=== PATIENT | male | born 1940 | race Caucasian/White ===

== ENCOUNTER → 2018-02-22 15:12 | Outpatient (REF) | payer MEDICARE, BC, SELFPAY ==
[2018-02-22 21:46] LABS: ALT 23 U/L (12-78); AST 17 U/L (15-37); Anion Gap 9.4 mmol/L (3-11); BUN 21 mg/dL (7-18); CO2 26.6 mmol/L (21.0-32.0); CREATININE 1.22 mg/dL (0.70-1.30); Calcium 8.8 mg/dL (8.5-10.1); Chloride 106 mmol/L (98-107); Cholesterol 176 mg/dL (50-200); Estimated GFR 57.91 (mL/min/1.73m2); Glucose 100 mg/dL (70-100); HDL Cholesterol 34 mg/dL (40-60); LDL CHOLESTEROL 118 mg/dL (<100); Sodium 142 mmol/L (136-145); Triglyceride 155 mg/dL (30-150)
== END ==
LOC: NCHCN 15:12
PROVIDERS: PCP Nurse Practitioner Family; Visit Provider Nurse Practitioner Family
DX: I10 Essential (primary) hypertension (principal); R21 Rash and other nonspecific skin eruption
CPT/HCPCS: 80048; 80061; 83721; 84450; 84460

== ENCOUNTER 2018-04-05 09:47 | Outpatient (REF) | payer MEDICARE, BC, SELFPAY ==
[2018-04-05 13:07] LABS: BUN 23 mg/dL (7-18); CREATININE 1.16 mg/dL (0.70-1.30); Calcium 8.6 mg/dL (8.5-10.1); Chloride 107 mmol/L (98-107); Glucose 98 mg/dL (70-100); Potassium 4.2 mmol/L (3.5-5.1); Sodium 142 mmol/L (136-145)
== END 2018-04-05 10:07 ==
LOC: NCHCN 09:47
PROVIDERS: PCP Nurse Practitioner Family; Visit Provider Nurse Practitioner Family
DX: E78.6 Lipoprotein deficiency (principal); I10 Essential (primary) hypertension; N40.0 Benign prostatic hyperplasia without lower urinary tract symptoms; E66.9 Obesity, unspecified
CPT/HCPCS: 80048

== ENCOUNTER → 2018-08-17 09:36 | Outpatient (BNVA) | payer MEDICARE, BC, SELFPAY | PROVIDERS: PCP Nurse Practitioner Family; Referring Provider Nurse Practitioner Family; Visit Provider Physical Therapy Assistant | DX: Z12.11 Encounter for screening for malignant neoplasm of colon (principal); Z86.010 Personal history of colon polyps; I10 Essential (primary) hypertension ==

== ENCOUNTER 2018-09-07 06:13 | Day surgery (SDC) | payer MEDICARE, BC, SELFPAY ==
[2018-09-07 06:26] VITALS: BP 160/98; PULSE 97; RESP 18; TEMP 36; O2SAT 98
[2018-09-07] MEDS: Lactated Ringers 1,000 ML 80 ML IV (06:52)
--- NOTE | 2018-09-07 07:58 | W.COLOREPORT ---
Date of service: 09/07/18 Time of Service: 07:58 Colonoscopy Report Date of procedure: 09/07/18 Pre-op diagnosis general: screening colonoscopy Procedure: screening colonscopy Surgeon: Kurt Ying III Anesthesia proc note operative: MAC Pathology: none sent Complications: None Disposition: PACU Prep: GoLYTELY Procedure Description: After informed consent was obtained the patient was taken to the procedure room and placed in a left decubitous position. Monitors were applied and a time out was done. The patients name, date of , procedure, allergies to medications and metal in their body was reviewed. The patient was then sedated. Once sedated and comfortable a rectal exam was done. External exam was normal. Internal exam revealed a normal sphincter tone and no palpable masses. The prostate large, smooth. The scope was then introduced and retrofelexed. No internal hemorrhoids were identified. The scope was then advanced to the cecum without difficulty. The TI and appendiceal orifice were identified. The prep was adequate. The scope was then slowly retracted over 6 minutes back into the rectum. No Polyps were removed. The scope was removed and the patient was woken up and taken back to Same day surgery in stable condition. The patient tolerated the procedure well and there were no immediate complications. Follow up: The patient should follow up in 10 years unless they develop changes in bowel habits or other new gastrointestinal complaints.
--- NOTE | 2018-09-07 08:03 | W.PM.DSUDISC ---
Discharge Plan Disposition Patient Disposition: HOME Condition: Stable Discharge Details Reason For Visit: screening colonoscopy Attending Provider: Kurt Ying III Primary Care Provider: Ayana Covarrubias Home Meds and New Rx's Prescriptions: Continued lisinopril 20 mg tablet 40 mg PO DAILY RF: 0 bisacodyl [Dulcolax (bisacodyl)] 5 mg tablet,delayed release (DR/EC) 5 mg PO ONCE Qty: 4 RF: 0 polyethylene glycol 3350 17 gram/dose powder 255 g PO ONCE Qty: 255 RF: 0 CENTRUM SILVER TABLET 1 EACH tablet 1 ea PO DAILY RF: 0 aspirin [Aspir-Low] 81 MG tablet,delayed release (DR/EC) 81 mg PO DAILY RF: 0 Discharge Instructions Activity:: Activity as Tolerated Diet:: As Tolerated Discharge Orders Discharge Orders: Discharge Order (Routine); Ordered 09/07/18 Ordered By: Kurt Ying III DS: Diagnosis Discharge Diagnosis (1) Encounter for screening colonoscopy: Status: Acute
[2018-09-07 08:52] VITALS: BP 131/84; PULSE 65; RESP 18; TEMP 36.5; O2SAT 94
== END 2018-09-07 09:00 | disposition home or self-care (01) ==
PROVIDERS: PCP Nurse Practitioner Family; Visit Provider Surgery
PROC: 0DJD8ZZ Inspection of Lower Intestinal Tract, Via Natural or Artificial Opening Endoscopic (ICD-10-PCS; CPT 45378; principal; 2018-09-07 07:30)
DX: Z12.11 Encounter for screening for malignant neoplasm of colon (principal); Z86.010 Personal history of colon polyps; I10 Essential (primary) hypertension
CPT/HCPCS: G0105

== ENCOUNTER 2018-11-22 11:20 | Outpatient (REF) | payer MEDICARE, BC, SELFPAY ==
[2018-11-22 13:28] LABS: ALT 21 U/L (12-78); AST 15 U/L (15-37); Albumin 3.7 g/dL (3.4-5.0); Alkaline Phosphatase 86 U/L (46-116); Anion Gap 5.3 mmol/L (3-11); BUN 20 mg/dL (7-18); Bilirubin, Total 0.5 mg/dL (0.2-1.0); CO2 30.7 mmol/L (21.0-32.0); CREATININE 1.23 mg/dL (0.70-1.30); Calcium 9.5 mg/dL (8.5-10.1); Chloride 106 mmol/L (98-107); Cholesterol 114 mg/dL (50-200); Estimated GFR 57.21 (mL/min/1.73m2); Glucose 87 mg/dL (70-100); HDL Cholesterol 37 mg/dL (40-60); LDL CHOLESTEROL 67 mg/dL (<100); Potassium 4.8 mmol/L (3.5-5.1); Sodium 142 mmol/L (136-145); Total Protein 7.5 g/dL (6.4-8.2); Triglyceride 79 mg/dL (30-150)
== END 2018-11-22 11:40 ==
LOC: NCHCN 11:20
PROVIDERS: PCP Nurse Practitioner Family; Visit Provider Nurse Practitioner Family
DX: E78.6 Lipoprotein deficiency (principal); I10 Essential (primary) hypertension
CPT/HCPCS: 80053; 80061; 83721

== ENCOUNTER 2019-06-25 13:12 | Outpatient (CLI) | payer MEDICARE, BC, SELFPAY ==
--- NOTE | 2019-06-25 13:26 | DI.RAD_ITS ---
EXAM: XR KNEE RT 4V AP,LAT,DREW,PAT INDICATION: KNEE PAIN. COMPARISON: No exams were available for comparison TECHNIQUE: 2D digital imaging was performed. FINDINGS: There is marked narrowing in the medial femorotibial joint space. Flattening of the articular surfac es and subchondral cysts is present. Periarticular spurring is also noted. In the patellofemoral joint, there is periarticular spurring present. No acute fracture or dislocation is present. An enthesophyte is seen at the superior patella. The soft tissues are unremarkable. IMPRESSION: Moderate degenerative changes of the right knee.
== END 2019-06-25 13:32 ==
PROVIDERS: PCP Nurse Practitioner Family; Referring Provider Nurse Practitioner Family; Visit Provider Student in an Organized Health Care Education/Training Program
DX: M25.561 Pain in right knee (principal); M17.11 Unilateral primary osteoarthritis, right knee; E66.9 Obesity, unspecified; I10 Essential (primary) hypertension
CPT/HCPCS: 99204; 99215; 73564

== ENCOUNTER → 2019-07-29 10:04 | Outpatient (BNVA) | payer MEDICARE, BC, SELFPAY | PROVIDERS: PCP Nurse Practitioner Family; Referring Provider Nurse Practitioner Family; Visit Provider Student in an Organized Health Care Education/Training Program | DX: M17.11 Unilateral primary osteoarthritis, right knee (principal); I10 Essential (primary) hypertension | CPT/HCPCS: 20610; 99213; J1040 ==

== ENCOUNTER → 2019-09-09 10:54 | Outpatient (BNVA) | payer MEDICARE, BC, SELFPAY | PROVIDERS: PCP Nurse Practitioner Family; Referring Provider Nurse Practitioner Family; Visit Provider Student in an Organized Health Care Education/Training Program | DX: M17.11 Unilateral primary osteoarthritis, right knee (principal) | CPT/HCPCS: 99212 ==

== ENCOUNTER → 2020-09-16 12:57 | Outpatient (BNVA) | payer MEDICARE, BC, SELFPAY | PROVIDERS: PCP Nurse Practitioner Family; Referring Provider Nurse Practitioner Family; Visit Provider Physician Assistant Surgical | DX: M17.11 Unilateral primary osteoarthritis, right knee (principal) | CPT/HCPCS: 20610; J1040 ==

== ENCOUNTER → 2020-11-12 09:41 | Outpatient (BNVA) | payer MEDICARE, BC, SELFPAY | PROVIDERS: PCP Nurse Practitioner Family; Referring Provider Nurse Practitioner Family; Visit Provider Student in an Organized Health Care Education/Training Program | DX: M17.11 Unilateral primary osteoarthritis, right knee (principal) | CPT/HCPCS: 99213 ==

== ENCOUNTER → 2020-12-17 08:20 | Outpatient (BNVA) | payer MEDICARE, BC, SELFPAY | PROVIDERS: PCP Nurse Practitioner Family; Referring Provider Nurse Practitioner Family; Visit Provider Student in an Organized Health Care Education/Training Program | DX: M17.11 Unilateral primary osteoarthritis, right knee (principal) | CPT/HCPCS: 20610; J1040 ==

== ENCOUNTER 2021-03-02 15:33 | Outpatient (REF) | payer MEDICARE, BC, SELFPAY ==
[2021-03-02 20:57] LABS: ALT 16 U/L (16-63); AST 16 U/L (15-37); Albumin 3.6 g/dL (3.4-5.0); Alkaline Phosphatase 98 U/L (46-116); Anion Gap 10.5 mmol/L (3-11); BUN 31 mg/dL (7-18); Bilirubin, Total 0.3 mg/dL (0.2-1.0); CO2 25.5 mmol/L (21.0-32.0); CREATININE 1.5 mg/dL (0.70-1.30); Calcium 9.3 mg/dL (8.5-10.1); Calculated LDL 96 mg/dL (<100); Chloride 106 mmol/L (98-107); Cholesterol 153 mg/dL (<200); Estimated GFR 45.26 (mL/min/1.73m2); Glucose 111 mg/dL (74-106); HDL Cholesterol 29 mg/dL (40-60); Potassium 4.8 mmol/L (3.5-5.1); Sodium 142 mmol/L (136-145); TSH (W/Ref FT4) 2.47 uIU/mL (0.36-3.74); Total Protein 7.8 g/dL (6.4-8.2); Triglyceride 143 mg/dL (<150)
== END 2021-03-02 15:34 | disposition home or self-care (01) ==
LOC: NCHCN 15:33
PROVIDERS: PCP Nurse Practitioner Family; Visit Provider Nurse Practitioner Family
DX: E78.6 Lipoprotein deficiency (principal); I10 Essential (primary) hypertension; R73.09 Other abnormal glucose; E66.9 Obesity, unspecified; I48.91 Unspecified atrial fibrillation
CPT/HCPCS: 80053; 80061; 83036; 84443

== ENCOUNTER 2021-03-15 12:03 | Outpatient (CLI) | payer MEDICARE, BC, SELFPAY ==
--- NOTE | 2021-03-15 10:45 | DI.RAD_ITS ---
Exam(s) XR STANDING ALIGNMENT EXAM: XR STANDING ALIGNMENT CLINICAL HISTORY: preop. TECHNIQUE: 2D digital imaging was performed. 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 Renh-ag-sgkz apposition in the medial compartment and degenerative subarticular cysts on both sides this compartment. Also sig nificant degenerative changes in the lateral compartment, slightly less so. In the opposite-left kne e there are only minimal degenerative changes. Hips appear unremarkable. Ankles appear unremarkable. IMPRESSION: Advanced degenerative changes in the right knee. DATA REPOSITORY: RADIATION DOSE DELIVERED:
--- NOTE | 2021-03-15 10:45 | DI.RAD_ITS ---
Exam(s) XR KNEE RT 1V EXAM: XR KNEE RT 1V CLINICAL HISTORY: preop. TECHNIQUE: 2D digital imaging was performed. COMPARISON: CR XR KNEE RT 4V AP,LAT,DREW,PAT from 06/25/2019 FINDINGS: Lateral views, compared to 06/25/2019 No fractures. Significant degenerative changes. There is also a joint effusion in the suprapatellar bursa. IMPRESSION: DATA REPOSITORY: RADIATION DOSE DELIVERED:
== END 2021-03-15 12:04 | disposition home or self-care (01) ==
LOC: DIORS 12:03
PROVIDERS: PCP Nurse Practitioner Family; Referring Provider Nurse Practitioner Family; Visit Provider Student in an Organized Health Care Education/Training Program
DX: M17.11 Unilateral primary osteoarthritis, right knee (principal); I12.9 Hypertensive chronic kidney disease with stage 1 through stage 4 chronic kidney disease, or unspecified chronic kidney disease; N18.9 Chronic kidney disease, unspecified
CPT/HCPCS: 99215; 73560; 77073

== ENCOUNTER 2021-03-16 12:26 | Outpatient (CLI) | payer MEDICARE, BC, SELFPAY ==
--- NOTE | 2021-03-16 13:00 | RT.EKG_ITS ---
APPROVED REPORT Exam: Resting ECG Reason for Exam: afib Patient Location: O HR:116 bpm ECG Measurements Heart Rate [address] [id number] P [id number] QRSd 98 QRS -51 QT 374 T 43 QTc 520 Conclusion Atrial flutter with predominant 2:1 AV block...A-rate 254, multiple Ps Probable inferior infarct, recent...Q>25mS, ST>0.07mV, T neg, II-aVF Consider anterior infarct...Q >30mS in V2-V5 Prolonged QT interval...QTc >500mS
== END 2021-03-16 12:27 | disposition home or self-care (01) ==
PROVIDERS: PCP Nurse Practitioner Family; Referring Provider Nurse Practitioner Family; Visit Provider Internal Medicine Cardiovascular Disease
DX: I48.20 Chronic atrial fibrillation, unspecified (principal); I10 Essential (primary) hypertension; Z01.810 Encounter for preprocedural cardiovascular examination
CPT/HCPCS: 93010

== ENCOUNTER → 2021-03-16 12:26 | Outpatient (BNVA) | payer MEDICARE, BC, SELFPAY | PROVIDERS: PCP Nurse Practitioner Family; Referring Provider Nurse Practitioner Family; Visit Provider Internal Medicine Cardiovascular Disease | DX: I48.20 Chronic atrial fibrillation, unspecified (principal); Z01.810 Encounter for preprocedural cardiovascular examination; I10 Essential (primary) hypertension | CPT/HCPCS: 93005; 99203; 99214 ==

== ENCOUNTER 2021-03-22 00:27 | Outpatient (CLI) | payer MEDICARE, BC, SELFPAY ==
--- NOTE | 2021-03-22 07:15 | DI.NM_ITS ---
APPROVED REPORT Exam: Pharmacologic Patient Location: Out-Patient Room/Bed: Stress Nurse: Ely So RN Ordering Provider:LAISHA ZAMORA, Contact Number: [phone] BMI: 35.80 Baseline Rhythm: Sinus Tachycardia Comment: Frequent multifocal PVCs Indications: Preoperative cardiovascular evaluation, hypertension, atrial fibrillation Medical History Medical History: Afib, hypertension, hyperlipidemia, prediabetes, diverticulitis, peripheral venous d isease, R knee injury Cardiac Medications: Metoprolol succinate, eliquis, lisinopril, atorvastatin Allergies: NKA Cardiac Risk Factors: Hypertension, hyperlipidemia, prediabetes, obesity, PVD Previous Cardiac Procedures: None Pretest Chest Pain Characteristics: None Exercise History: Sedentary Physical Disabilities: R knee injury Lung Sounds: Clear to auscultation Heart Sounds: Irregular Stress Test Details Test: Pharmacologic stress testing performed using 0.4 mg of regadenoson per 5 mL given IV over 10 s econds. Reason for pharmacologic stress test: physical limitation. Nuclear Acquisition: Rest Tc-99m/Stress Tc-99m 1 day Rest Isotope: Tc-99m Sestamibi. Dose: 14.7 Date: 03/22/2021 Injection Time: 0915 Stress Isotope: Tc-99m Sestamibi. Dose: 47.0 Date: 03/22/2021 Injection Time: 1033 HR Resting HR Supine: 127 bpm Max Heart Rate (APMHR): 142.368862 bpm Target HR (85% APMHR): 120.094717 bpm Max HR Achieved: 129 bpm % of APMHR: 90.85 Recovery HR: 125 bpm Comment: Metoprolol succinate not held BP Resting BP Supine: 144/90 mmHg Max BP: 144/90 mmHg Recovery BP: 132/88 mmHg ECG Resting ECG: Sinus Tachycardia Ectopy: Frequent multifocal PVCs Stress ECG: Sinus Tachycardia ST Change: No significant ST segment changes noted Arrhythmia: Frequent multifocal PVCs, trigeminy Recovery ECG: Sinus Tachycardia Recovery ST Change: No significant ST segment changes noted Recovery Arrhythmia: Frequent multifocal PVCs, trigeminy, Clinical Stress Symptoms: General Fatigue Rate Pressure Product: [id number] Stress ECG Conclusion 1. There is a pharmacological stress test. 2. The patient no symptoms suggestive of ischemia. 3. The ECG portion of the exam is nondiagnostic. Stress Test Summary STAGE HR BP Symptoms NOTES Supine 127 144/90 SpO2 93% 1 min post Lexiscan injection 122 140/96 SpO2 93% 3 min post Lexiscan injection 125 138/86 SpO2 96% Pt reports feeling tired, small discomfort in shoul ders 6 min post Lexiscan injection 125 132/88 SpO2 96% Symptoms resolved MPI Conclusion The ejection fraction was 38% with stress. There were no regional wall motion abnormalities There was no evidence of ischemia on the imaging portion of the exam. This represents a normal SPECT stress test. Radiologist Interpretation Radiologist Interpretation by: Rob Bustos MD Interpretation Date/Time: 03/23/2021 08:28:03
[2021-03-22] MEDS: Regadenoson 0.4 MG/5 ML SYR IVP (10:53)
== END 2021-03-22 00:47 ==
PROVIDERS: PCP Nurse Practitioner Family; Visit Provider Internal Medicine Cardiovascular Disease
DX: I10 Essential (primary) hypertension (principal); I48.20 Chronic atrial fibrillation, unspecified; Z01.810 Encounter for preprocedural cardiovascular examination; I49.3 Ventricular premature depolarization; E78.5 Hyperlipidemia, unspecified; R73.03 Prediabetes; E66.9 Obesity, unspecified
CPT/HCPCS: 78452; 93016; 93018; 93017; J2785

== ENCOUNTER 2021-03-23 01:34 | Outpatient (CLI) | payer MEDICARE, BC, SELFPAY ==
--- NOTE | 2021-03-23 | DI.US_ITS ---
APPROVED REPORT EXAM: Comprehensive 2D, Doppler, and color-flow Echocardiogram Patient Location: Out-Patient Fiber Machine Tender: Jayde Carter RDCS (AE) Indications: Atrial Fibrillation Other Information Study Quality: Technically Difficult. Technically limited study due to body habitus, arrhythmia. Conclusion Left Ventricle : The left ventricle is normal size. Left ventricular systolic function is mildly decr eased. Visual estimation 45 to 50%. Cannot assess regional wall motion abnormalities. There is no gina tricular septal defect visualized. Right Ventricle : Right ventricle is not well visualized. Right ventricular systolic function could n ot be assessed. The RVSP is 30.0mmHg. Atria : The left atrium size is normal. The right atrium size is normal. Aortic Valve : Aortic valve is calcified. Number of aortic valve leaflets could not be assessed. Trac e aortic regurgitation. No hemodynamically significant valvular aortic stenosis. Great Vessels : The aortic root is normal in size. Ascending aorta is not well visualized. Aortic arc h is normal in caliber. The IVC collapses <50% with inspiration. Please see remainder of study for further details. Wall motion Left Ventricle The left ventricle is normal size. Left ventricular systolic function is mildly decreased. Visual est imation 45 to 50%. There is normal left ventricular wall thickness. Cannot assess regional wall motio n abnormalities. There is no ventricular septal defect visualized. Right Ventricle Right ventricle is not well visualized. Right ventricular systolic function could not be assessed. Th e RVSP is 30.0mmHg. Atria The left atrium size is normal. The right atrium size is normal. The interatrial septum is intact wit h no evidence for an atrial septal defect. Aortic Valve Aortic valve is calcified. Number of aortic valve leaflets could not be assessed. No hemodynamically significant valvular aortic stenosis. Trace aortic regurgitation. Mitral Valve The mitral valve is normal in structure. No evidence of mitral valve stenosis. Trace mitral regurgita tion. Tricuspid Valve The tricuspid valve is normal in structure. There is no tricuspid valve stenosis. Trace tricuspid reg urgitation. Pulmonic Valve The pulmonary valve is normal in structure. There is no pulmonic valvular stenosis. Trace pulmonic re gurgitation. Great Vessels The aortic root is normal in size. Ascending aorta is not well visualized. Aortic arch is normal in c aliber. The IVC collapses <50% with inspiration. Pericardium There is no pericardial effusion. 2D Dimensions IVSD d PLAX 1.04 cm M: 0.6-1.2 LV Vol A2C d MOD 116.3 mL LVPW d PLAX 1.01 cm M: 0.6 - 1.2 LV Vol A4C d MOD 112.4 mL LVID d PLAX 4.00 cm M: 4.2 - 5.8 LA vol/ BSA A2C s A-L 33.3 mL/m2 LVDs 3.20 cm M: 2.5 - 4.0 LA vol/ BSA A4C s A-L 32.7 mL/m2 Ao Root d 3.52 cm M: 3.1 - 3.7 LA Vol/ BSA Biplane s A-L 35.3 mL/m2 RA Area A4C 20.58 cm2 LA Area A4C s MOD 25.40 cm2 RA Vol/ BSA A4C s A-L 26.1 mL/m2 LA Area A2C s MOD 24.02 cm2 LV EF Teichholz 40.1 % LV EF A4C MOD 41.1 % LVEF (Zaidi's) 41.06 % M: 52 - 72 LV EF A2C MOD 39.9 % LV Volume 81.74 mL M: 62 - 150 LV EF Biplane MOD 41.1 % LV Volume Index 34.05 mL/m2 M: 34 - 74 SV 47.39 mL LV Vol Biplane MOD 115.4 mL SV Index 19.74 mL/m2 FS 19.20 % M-Mode TAPSE 1.76 cm (M/F) >1.7 LV Diastology E/A Ratio 1.5 MV E Vmax 0.91 (0.4-1.3 m/s) MV A Vmax 0.60 (0.4-1.3 m/s) MV E/A Ratio 1.52 Aortic Valve LVOT Area 5.03 cm2 AoV Area Vmax 2.17 cm2 LVOT Vmax 0.89 m/s AoV Area/ BSA (Vmax) 0.90 cm2/m2 LVOT Mean Bobby. 0.58 m/s KRISTAN Mean Bobby. 1.91 cm2 LVOT Peak Grad 3.1 mmHg KRISTAN Mean Bobby. Index 0.80 cm2/m2 LVOT Mean Grad 1.6 mmHg LVOT VTI 0.136 m LVOT Diam s 2.50 cm AoV Vmax 2.05 m/s Velocity Ratio 0.43 AoV Mean Bobby. 1.53 m/s AoV Peak Grad 16.8 mmHg LVOT SV 68.25 mL AoV Mean Grad 10.2 mmHg AoV VTI 0.322 m AoV Area VTI 2.12 cm2 AoV Area/ BSA (VTI) 0.88 cm/m2 Mitral Valve MV DT 128 (160-240 msec) MV PHT 37 msec MV Area PHT 5.91 cm2 MV VTI 0.296 m MV Area VTI 2.31 (4.0-6.0 cm2) Pulmonary Valve PV Vmax 1.53 (0.5-1.5 m/s) RVOT Peak Gr. 4.89 mmHg PV Peak Grad 9.3 mmHg RVOT Mean Gr. 2.30 mmHg PV Mean Grad 4.9 mmHg RVOT VTI 0.148 m PV VTI 0.175 m RVOT Vmax 1.11 m/s Tricuspid Valve TR Peak Grad 22.0 mmHg TR Vmax 2.35 m/s RA Pressure 8.00 mmHg RVSP (TR) 30.0 mmHg
== END 2021-03-23 01:54 ==
PROVIDERS: PCP Nurse Practitioner Family; Visit Provider Nurse Practitioner Family
DX: I48.91 Unspecified atrial fibrillation (principal); R93.9 Diagnostic imaging inconclusive due to excess body fat of patient; I49.8 Other specified cardiac arrhythmias
CPT/HCPCS: 93306

== ENCOUNTER 2021-03-26 03:01 | Outpatient (CLI) | payer MEDICARE, BC, SELFPAY ==
[2021-03-26 11:16] LABS: Source Nasal/Nares
[2021-03-26 13:49] LABS: COVID-19 PCR Negative (Negative)
== END 2021-03-26 03:02 | disposition home or self-care (01) ==
LOC: LBO 03:02
PROVIDERS: PCP Nurse Practitioner Family; Visit Provider Student in an Organized Health Care Education/Training Program
DX: Z20.822 Contact with and (suspected) exposure to COVID-19 (principal); Z01.818 Encounter for other preprocedural examination
CPT/HCPCS: 87635

== ENCOUNTER 2021-03-26 03:02 | Outpatient (CLI) | payer MEDICARE, BC, SELFPAY ==
--- NOTE | 2021-03-25 11:39 | ANES.CON_ITS ---
General Date of Service Date of Service: 03/25/21 Reason for Consult Requesting Provider: Weston Ojeda How Consult Conducted:: Chart Review Reason for Consult:: Afib, CV history Consult Recommendation after Review:: Discussed patient's preoperative CV note and followup ECHO and MPS results. We agree that it is reasonable for him to proceed for his scheduled TKA. Meds Allergies and Home Medications Allergies Allergy/AdvReac Type Severity Reaction Status Date / Time No Known Allergies Allergy Verified 03/16/21 12:52 Home Medication Medication Instructions Recorded Centrum Silver Tablet 1 ea PO DAILY 11/12/12 lisinopril 20 mg tablet 40 mg PO DAILY tab 08/17/18 naproxen sodium 220 mg capsule 220 mg PO BID PRN 07/29/19 apixaban 5 mg tablet 5 mg PO BID 03/15/21 atorvastatin 20 mg tablet 20 mg PO DAILY 03/15/21 metoprolol succinate 100 mg 100 mg PO DAILY #90 tab 03/16/21 tablet,extended release 24 hr PFSH Active Problems Active Problems: Problem Status Onset Code Preoperative cardiovascular examination Z01.810 Hypertension I10 BPH (benign prostatic hyperplasia) N40.0 Atrial fibrillation, chronic I48.20 Renal insufficiency N28.9 Dyslipidemia E78.5 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 mg Obesity Peripheral venous insufficiency Preoperative cardiovascular examination Surgical History Surgical History Colonoscopy - IV Sedation (~2006) MINDA Tobacco Smoking/Tobacco Use Status: Never Substance Use Substance use: Never Vital Signs & Lab Results Point of Care Results Nursing Point of Care Results: No Data to Display Lab Results Blood Type / Crossmatch: No Data to Display Complete Blood Count: No Data to Display Complete Metabolic Panel: Sodium Level 142 mmol/L (136-145) 03/02/21 15:10 03/02/21 Potassium Level 4.8 mmol/L (3.5-5.1) 03/02/21 15:10 03/02/21 Chloride Level 106 mmol/L (98-107) 03/02/21 15:10 03/02/21 Carbon Dioxide Level 25.5 mmol/L (21.0-32.0) 03/02/21 15:10 03/02/21 Blood Urea Nitrogen 31 mg/dL (7-18) H 03/02/21 15:10 03/02/21 Creatinine 1.5 mg/dL (0.70-1.30) H 03/02/21 15:10 03/02/21 Estimated GFR/1.73 m2 45.26 (mL/min/1.73m2) 03/02/21 15:10 03/02/21 Calcium Level 9.3 mg/dL (8.5-10.1) 03/02/21 15:10 03/02/21 Albumin 3.6 g/dL (3.4-5.0) 03/02/21 15:10 03/02/21 Glucose Level 111 mg/dL (74-106) H 03/02/21 15:10 03/02/21 Hemoglobin A1c 6.0 % (<5.7) H 03/02/21 15:10 03/02/21 Liver Function Panel: Alanine Aminotransferase (ALT/SGPT) 16 U/L (16-63) 03/02/21 15:10 03/02/21 Aspartate Amino Transf (AST/SGOT) 16 U/L (15-37) 03/02/21 15:10 03/02/21 Coagulation Panel: No Data to Display Cardiac Panel: No Data to Display Arterial Blood Gas: No Data to Display Venous Blood Gas: No Data to Display Pancreas Panel: No Data to Display Thyroid Panel: Thyroid Stimulating Hormone (TSH) 2.47 uIU/mL (0.36-3.74) 03/02/21 15:10 03/02/21 Infectious Disease: No Data to Display Blood Cultures: No Data to Display Toxicology Panel: No Data to Display Imaging and Studies Imaging and Studies EKG Summary: Atrial flutter with predominant 2:1 AV block...A-rate 254, multiple Ps Probable inferior infarct, recent...Q>25mS, ST>0.07mV, T neg, II-aVF Consider anterior infarct...Q >30mS in V2-V5 Prolonged QT interval...QTc >500mS Stress Test Summary: MPI Conclusion The ejection fraction was 38% with stress. There were no regional wall motion abnormalities There was no evidence of ischemia on the imaging portion of the exam. This represents a normal SPECT stress test. Echocardiogram Summary: Conclusion Left Ventricle : The left ventricle is normal size. Left ventricular systolic function is mildly decreased. Visual estimation 45 to 50%. Cannot assess regional wall motion abnormalities. There is no ventricular septal defect visualized. Right Ventricle : Right ventricle is not well visualized. Right ventricular systolic function could not be assessed. The RVSP is 30.0mmHg. Atria : The left atrium size is normal. The right atrium size is normal. Aortic Valve : Aortic valve is calcified. Number of aortic valve leaflets could not be assessed. Trace aortic regurgitation. No hemodynamically significant valvular aortic stenosis. Great Vessels : The aortic root is normal in size. Ascending aorta is not well visualized. Aortic arch is normal in caliber. The IVC collapses <50% with inspiration. Please see remainder of study for further details.
[2021-03-26 10:39] LABS: HCT 42.7 % (40.0-50.0); HGB 13.4 g/dL (13.5-17.5); MCH 30.4 pg (27.0-33.0); MCHC 31.4 % (32.0-36.0); MCV 96.8 fL (80-95); MPV 9.2 fL (8.0-11.0); Platelet Count 392 10^3/uL (130-400); RBC 4.41 10^6/uL (4.36-5.78); RDW-SD 49.8 fL; WBC 8.45 10^3/uL (4.4-10.8)
[2021-03-26 11:52] LABS: Anion Gap 8.9 mmol/L (3-11); BUN 35 mg/dL (7-18); CO2 29.1 mmol/L (21.0-32.0); CREATININE 1.5 mg/dL (0.70-1.30); Calcium 9.7 mg/dL (8.5-10.1); Chloride 105 mmol/L (98-107); Estimated GFR 45.26 (mL/min/1.73m2); Glucose 103 mg/dL (74-106); Sodium 143 mmol/L (136-145)
== END 2021-03-26 03:03 | disposition home or self-care (01) ==
LOC: LBO 03:03
PROVIDERS: PCP Nurse Practitioner Family; Visit Provider Student in an Organized Health Care Education/Training Program
DX: M25.561 Pain in right knee (principal); M17.11 Unilateral primary osteoarthritis, right knee; Z01.818 Encounter for other preprocedural examination; Z01.812 Encounter for preprocedural laboratory examination
CPT/HCPCS: 36415; 80048; 85027; 87635

== ENCOUNTER 2021-03-30 08:28 | Day surgery (SDC) | payer MEDICARE, BC, SELFPAY ==
[2021-03-30] VITALS (7 sets, daily range): BP systolic 128–159; BP diastolic 80–100; PULSE 81–131; RESP 14–20; TEMP 36.2–36.9; O2SAT 94–96; BMI 38.3
--- NOTE | 2021-03-30 09:11 | W.ANESPRE ---
General Info Date of Service Date Performed: 03/30/21 Height: 5 ft 11 in Weight: 124.738 kg Body Mass Index (BMI): 38.3 Surgical Procedure: Operation Date: 03/30/21 10:25 Proposed Procedures Side Surgeon p Knee Total Arthroplasty Right Weston Ojeda MD Meds Allergies and Home Medications Allergies Allergy/AdvReac Type Severity Reaction Status Date / Time No Known Allergies Allergy Verified 03/30/21 08:57 Home Medication Medication Instructions Recorded Centrum Silver Tablet 1 ea PO DAILY 11/12/12 lisinopril 20 mg tablet 40 mg PO DAILY tab 08/17/18 naproxen sodium 220 mg capsule 220 mg PO BID PRN 07/29/19 apixaban 5 mg tablet 5 mg PO BID 03/15/21 atorvastatin 20 mg tablet 20 mg PO DAILY 03/15/21 metoprolol succinate 100 mg 100 mg PO DAILY #90 tab 03/16/21 tablet,extended release 24 hr acetaminophen 650 mg PO Q8H PRN 03/30/21 Current Visit Medications: Current Medications Generic Name Dose Route Start Last Admin Trade Name Joy PRN Reason Stop Dose Admin Acetaminophen 1,000 mg 03/30/21 06:00 Acetaminophen 500 Mg Tab PO 03/30/21 16:00 PREOP LARRY Celecoxib 400 mg 03/30/21 06:00 Celecoxib 200 Mg Cap PO 03/30/21 16:00 PREOP LARRY Gabapentin 300 mg 03/30/21 06:00 Gabapentin 300 Mg Cap PO 03/30/21 16:00 PREOP LARRY Tranexamic Acid 1,000 mg/ 60 mls @ 360 mls/hr 03/30/21 06:00 Sodium Chloride IVPB 03/30/21 16:00 PREOP LARRY Tranexamic Acid 1,000 mg/ 60 mls @ 360 mls/hr 03/30/21 06:00 Sodium Chloride IVPB 03/30/21 16:00 DIRECTED LARRY Ringer's Solution 1,000 mls @ 80 mls/hr 03/30/21 06:00 IV 04/25/21 23:59 INFUSION LARRY Cefazolin Sodium 3,000 mg/ 100 mls @ 200 mls/hr 03/30/21 06:00 Sodium Chloride IVPB 03/30/21 23:59 PREOP LARRY IV Miscellaneous Supplies 1 each 03/30/21 06:00 Iv Access IV 04/25/21 23:59 DIRECTED COUNTS INCLUDE 234 BEDS AT THE [facility] Metoprolol Succinate 100 mg 03/30/21 09:07 Metoprolol Cr 100 Mg Tabcr PO 03/30/21 09:08 NOW STA Sodium Chloride 0 ml 03/30/21 06:00 Normal Saline Flush 10 Ml Syr IV 04/25/21 23:59 PRN PRN Sodium Chloride 0 ml 03/30/21 06:00 Normal Saline 10 Ml Vial IJ 04/25/21 23:59 DIRECTED PRN Sterile Water 0 ml 03/30/21 06:00 Water,Injection,Sterile 10 Ml Vial IJ 04/25/21 23:59 DIRECTED PRN PFSH Active Problems Active Problems: Problem Status Onset Code Preoperative cardiovascular examination Z01.810 Hypertension I10 BPH (benign prostatic hyperplasia) N40.0 Atrial fibrillation, chronic I48.20 Renal insufficiency N28.9 Dyslipidemia E78.5 Abdominal obesity and metabolic syndrome E88.81 HTN (hypertension) with goal to be determined I10 Arthritis of knee, right M17.11 Encounter for screening colonoscopy Z12.11 Medical History Medical History Benign prostatic hyperplasia DIVERTICULOSIS Dupuytren's disease Essential hypertension Hypertension Normal colonoscopy (09/07/18) 09/07/18 Dr Kurt Ying, [facility], normal, would be repeat in 10 years but due to age, repeat as needed. mg Obesity Peripheral venous insufficiency Preoperative cardiovascular examination Surgical History Surgical History Colonoscopy - IV Sedation (~2006) MINDA Tobacco Smoking/Tobacco Use Status: Never Alcohol Alcohol Intake: never Substance Use Substance use: Never Substance use type: does not use Vital Signs and Lab Results Lab Results Blood Type / Crossmatch: No Data to Display Complete Blood Count: White Blood Count 8.45 10^3/uL (4.4-10.8) 03/26/21 10:34 03/26/21 Red Blood Count 4.41 10^6/uL (4.36-5.78) 03/26/21 10:34 03/26/21 Hemoglobin 13.4 g/dL (13.5-17.5) L 03/26/21 10:34 03/26/21 Hematocrit 42.7 % (40.0-50.0) 03/26/21 10:34 03/26/21 Platelet Count 392 10^3/uL (130-400) 03/26/21 10:34 03/26/21 Complete Metabolic Panel: Sodium Level 143 mmol/L (136-145) 03/26/21 10:34 03/26/21 Potassium Level 5.0 mmol/L (3.5-5.1) 03/26/21 10:03/26/21 Chloride Level 105 mmol/L (98-107) 03/26/21 10:03/26/21 Carbon Dioxide Level 29.1 mmol/L (21.0-32.0) 03/26/21 10:34 03/26/21 Blood Urea Nitrogen 35 mg/dL (7-18) H 03/26/21 10:03/26/21 Creatinine 1.5 mg/dL (0.70-1.30) H 03/26/21 10:03/26/21 Estimated GFR/1.73 m2 45.26 (mL/min/1.73m2) 03/26/21 10:03/26/21 Calcium Level 9.7 mg/dL (8.5-10.1) 03/26/21 10:34 03/26/21 Albumin 3.6 g/dL (3.4-5.0) 03/02/21 15:10 03/02/21 Glucose Level 103 mg/dL (74-106) 03/26/21 10:34 03/26/21 Hemoglobin A1c 6.0 % (<5.7) H 03/02/21 15:10 03/02/21 Liver Function Panel: Alanine Aminotransferase (ALT/SGPT) 16 U/L (16-63) 03/02/21 15:10 03/02/21 Aspartate Amino Transf (AST/SGOT) 16 U/L (15-37) 03/02/21 15:10 03/02/21 Coagulation Panel: No Data to Display Cardiac Panel: No Data to Display Arterial Blood Gas: No Data to Display Venous Blood Gas: No Data to Display Pancreas Panel: No Data to Display Thyroid Panel: Thyroid Stimulating Hormone (TSH) 2.47 uIU/mL (0.36-3.74) 03/02/21 15:10 03/02/21 Infectious Disease: Coronavirus (COVID-19)(PCR) Negative (Negative) 03/26/21 10:47 03/26/21 Coronavirus 2019 Source Nasal/Nares 03/26/21 10:47 03/26/21 Blood Cultures: No Data to Display Toxicology Panel: No Data to Display Imaging and Studies Imaging and Studies EKG Summary: Atrial flutter with predominant 2:1 AV block...A-rate 254, multiple Ps Probable inferior infarct, recent...Q>25mS, ST>0.07mV, T neg, II-aVF Consider anterior infarct...Q >30mS in V2-V5 Prolonged QT interval...QTc >500mS Stress Test Summary: MPI Conclusion The ejection fraction was 38% with stress. There were no regional wall motion abnormalities There was no evidence of ischemia on the imaging portion of the exam. This represents a normal SPECT stress test. Echocardiogram Summary: Conclusion Left Ventricle : The left ventricle is normal size. Left ventricular systolic function is mildly decreased. Visual estimation 45 to 50%. Cannot assess regional wall motion abnormalities. There is no ventricular septal defect visualized. Right Ventricle : Right ventricle is not well visualized. Right ventricular systolic function could not be assessed. The RVSP is 30.0mmHg. Atria : The left atrium size is normal. The right atrium size is normal. Aortic Valve : Aortic valve is calcified. Number of aortic valve leaflets could not be assessed. Trace aortic regurgitation. No hemodynamically significant valvular aortic stenosis. Great Vessels : The aortic root is normal in size. Ascending aorta is not well visualized. Aortic arch is normal in caliber. The IVC collapses <50% with inspiration. Please see remainder of study for further details. Anesthesia Assessment and Plan Anesthesia History Personal History: No History of Anesthesia Complications Family History: No Family History of Anesthesia Complications Exercise Tolerance Exercise Tolerance: Metabolic Equivalents<4 Pertinent Negatives Pertinent Negatives: No Symptoms of GERD, No Major Pulmonary Symptoms or Complaints and No History of CVA/TIA Cardiac & Pulmonary Exam Cardiac Exam: Normal S1/S2 Heart Sounds (Patient's heart rate is elevated in the 130s. Did not take his 100 mg ER Metoprolol this morning. Ordered to be given in DSU. ) Pulmonary Exam: Clear Bilateral Breath Sounds Airway Exam Known Difficult Airway: No Mallampati Class: 3 Mouth Opening: Normal (> 3cm) Thyromental Distance: Greater than 3 cm Neck Range of Motion: Full ROM Neck Circumference: Normal Teeth Condition: Removable Dentures/Plates Lower ASA Classification ASA Score: ASA 3 Emergency Case?: No NPO Status NPO Status: NPO Clears >2 hours, Solids >8 hours Anesthesia Plan Resuscitation Status: Full Code Anesthesia Technique: Spinal Anesthesia Airway Planned: Natural Airway Monitors Used: Standard Monitors
[2021-03-30] MEDS: Metoprolol CR 100 MG TABCR PO (09:21)
[2021-03-30] MEDS: Celecoxib 200 MG CAP 400 MG PO (09:28)
[2021-03-30] MEDS: Acetaminophen 500 MG TAB 1000 MG PO (09:28)
[2021-03-30] MEDS: Gabapentin 300 MG CAP PO (09:28)
[2021-03-30] MEDS: Lactated Ringers 1,000 ML 80 ML IV (09:45)
--- NOTE | 2021-03-30 10:08 | W.PM.DSUDISC ---
Documented by User: GHISLAINE Celeste 03/30/21 14:16 Discharge Plan Disposition Patient Disposition: HOME Condition: Good Discharge Details Reason For Visit: R TKR Attending Provider: Weston Ojeda Primary Care Provider: Ayana Covarrubias Home Meds and New Rx's Prescriptions: New celecoxib 200 mg capsule 200 mg PO BID Qty: 60 RF: 0 gabapentin 300 mg capsule 300 mg PO QHS Qty: 14 RF: 0 acetaminophen 500 mg capsule 1,000 mg PO Q8H PRN PRNQty: 90 RF: 0 pantoprazole 40 mg tablet,delayed release (DR/EC) 40 mg PO DAILY Qty: 30 RF: 0 oxycodone 5 mg tablet 5 mg PO Q4H MDD 6 tabs PRN (Reason: pain) Qty: 20 RF: 0 cephalexin 500 mg tablet 500 mg PO TID Qty: 21 RF: 0 Continued metoprolol succinate 100 mg tablet extended release 24 hr 100 mg PO DAILY Qty: 90 RF: 3 lisinopril 20 mg tablet 40 mg PO DAILY RF: 0 Eliquis 5 mg tablet 5 mg PO BID RF: 0 atorvastatin 20 mg tablet 20 mg PO DAILY RF: 0 CENTRUM SILVER TABLET 1 EACH tablet 1 ea PO DAILY RF: 0 Discontinued naproxen sodium [Aleve] 220 mg capsule 220 mg PO BID PRNRF: 0 acetaminophen 650 mg Tablet Extended Release 650 mg PO Q8H PRNRF: 0 Discharge Instructions Additional Instructions: Total Knee Discharge Instructions Activity: The most important activity is to walk. You should try to take short walks a few times a day. It is important that when resting you work on keeping the knee straight. Avoid putting a pillow behind the knee as this will encourage flexion. You should prioritize your [employer] bike. Some days you may need to not do as much due to pain and stiffness. Incorporate range of motion exercises as provided by Physical Therapy. - Start outpatient physical therapy within 2 weeks. - You should wear the BARBY hose on both legs for 2 weeks. You may remove these at night. You may also use any compression sock in place of the BARBY hose. Dressing: You may remove the Deon wrap on your leg 1-2 days after your surgery and put on the BARBY stocking given to you from the hospital. Keep the surgical dressing (underneath the DEON wrap) in place for at least one week. After the first week it may be removed and replaced with light gauze and tape or nothing. The wound and dressing may get wet after 3 days but avoid soaking the dressing or otherwise it will need to be changed. Many people prefer covering the dressing with cling wrap (saran wrap) to minimize it from getting soaked. If it gets wet, just pat dry. If it starts to peel off then it will need to be changed. Medications: - You should take Tylenol and anti-inflammatory Celebrex as your primary pain control medications. If the Celebrex is too expensive or not covered, please call the office for another alternative (Advil/Ibuprofen or Naproxen/Aleve) - You have been prescribed a stronger pain medication Oxycodone for breakthrough pain, take as needed as prescribed. - You have also been prescribed a stomach acid reduction agent Pantoprozole to help reduce stomach acid and reflux. - You have been prescribed Gabapentin to take at night for restlessness and nerve pain. - You will be taking your apixaban for DVT prevention which you should start in the morning (03/31/2021). - If you have constipation you should take Colace or Miralax (both [id number]). It takes most people 3-4 days to have a bowel movement. - You were also prescribed cephalexin which you will take three times daily for one week. Follow-up: 2 weeks If you have any acute concerns or questions, please do not hesitate to contact the office at [phone]. You may contact Dr. Ojeda with any questions after hours through the hospital at [phone] or on his cell phone at [phone]. Stand Alone Forms: Anes.Nerve Block Instructions, Sarah Buchanan ([facility]) Referrals: Weston Ojeda MD [ [facility] STAFF PHYSICIAN] - Equipment/Supplies: Walker Activity:: Activity as Tolerated Remove Dressings/Wound Care:: Do Not Remove Shower/Bathe:: 72 hours Diet:: As Tolerated Discharge Orders Discharge Orders: Discharge Order (Routine); Ordered 03/30/21 Ordered By: Weston Ojeda DS: Diagnosis Discharge Diagnosis (1) Arthritis of knee, right: Status: Acute Documented by User: Weston Ojeda MD 03/30/21 14:19 Discharge Plan Disposition Patient Disposition: HOME Condition: Good Discharge Details Reason For Visit: R TKR Attending Provider: Weston Ojeda Primary Care Provider: Ayana Covarrubias Home Meds and New Rx's Prescriptions: New celecoxib 200 mg capsule 200 mg PO BID Qty: 60 RF: 0 gabapentin 300 mg capsule 300 mg PO QHS Qty: 14 RF: 0 acetaminophen 500 mg capsule 1,000 mg PO Q8H PRN PRNQty: 90 RF: 0 pantoprazole 40 mg tablet,delayed release (DR/EC) 40 mg PO DAILY Qty: 30 RF: 0 oxycodone 5 mg tablet 5 mg PO Q4H MDD 6 tabs PRN (Reason: pain) Qty: 20 RF: 0 cephalexin 500 mg tablet 500 mg PO TID Qty: 21 RF: 0 Continued metoprolol succinate 100 mg tablet extended release 24 hr 100 mg PO DAILY Qty: 90 RF: 3 lisinopril 20 mg tablet 40 mg PO DAILY RF: 0 Eliquis 5 mg tablet 5 mg PO BID RF: 0 atorvastatin 20 mg tablet 20 mg PO DAILY RF: 0 CENTRUM SILVER TABLET 1 EACH tablet 1 ea PO DAILY RF: 0 Discontinued naproxen sodium [Aleve] 220 mg capsule 220 mg PO BID PRNRF: 0 acetaminophen 650 mg Tablet Extended Release 650 mg PO Q8H PRNRF: 0 Discharge Instructions Additional Instructions: Total Knee Discharge Instructions Activity: The most important activity is to walk. You should try to take short walks a few times a day. It is important that when resting you work on keeping the knee straight. Avoid putting a pillow behind the knee as this will encourage flexion. You should prioritize your [employer] bike. Some days you may need to not do as much due to pain and stiffness. Incorporate range of motion exercises as provided by Physical Therapy. - Start outpatient physical therapy within 2 weeks. - You should wear the BARBY hose on both legs for 2 weeks. You may remove these at night. You may also use any compression sock in place of the BARBY hose. Dressing: You may remove the Deon wrap on your leg 1-2 days after your surgery and put on the BARBY stocking given to you from the hospital. Keep the surgical dressing (underneath the DEON wrap) in place for at least one week. After the first week it may be removed and replaced with light gauze and tape or nothing. The wound and dressing may get wet after 3 days but avoid soaking the dressing or otherwise it will need to be changed. Many people prefer covering the dressing with cling wrap (saran wrap) to minimize it from getting soaked. If it gets wet, just pat dry. If it starts to peel off then it will need to be changed. Medications: - You should take Tylenol and anti-inflammatory Celebrex as your primary pain control medications. If the Celebrex is too expensive or not covered, please call the office for another alternative (Advil/Ibuprofen or Naproxen/Aleve) - You have been prescribed a stronger pain medication Oxycodone for breakthrough pain, take as needed as prescribed. - You have also been prescribed a stomach acid reduction agent Pantoprozole to help reduce stomach acid and reflux. - You have been prescribed Gabapentin to take at night for restlessness and nerve pain. - You will be taking your apixaban for DVT prevention which you should start in the morning (03/31/2021). - If you have constipation you should take Colace or Miralax (both [id number]). It takes most people 3-4 days to have a bowel movement. - You were also prescribed cephalexin which you will take three times daily for one week. Follow-up: 2 weeks If you have any acute concerns or questions, please do not hesitate to contact the office at [phone]. You may contact Dr. Ojeda with any questions after hours through the hospital at [phone] or on his cell phone at [phone]. Stand Alone Forms: Luke.Nerve Block Instructions, Sarah Buchanan ([facility]) Referrals: Weston Ojeda MD [ [facility] STAFF PHYSICIAN] - Equipment/Supplies: Walker Activity:: Activity as Tolerated Remove Dressings/Wound Care:: Do Not Remove Shower/Bathe:: 72 hours Diet:: As Tolerated Discharge Orders Discharge Orders: Discharge Order (Routine); Ordered 03/30/21 Ordered By: Weston Ojeda
[2021-03-30] MEDS: ceFAZolin 3,000 MG in Normal Saline 100 ML 200 MG IVPB (10:31)
--- NOTE | 2021-03-30 10:54 | W.ANESNERVE ---
Nerve Block Single Injection Procedure Date and Time Date Performed: 03/30/21 Procedure Start: 10:12 Location Where Procedure Performed Procedure Location: PACU Reason Performed: Postoperative Analgesia Requesting Provider: Weston Ojeda Timeout Performed Timeout Performed: Yes Monitoring Used ECG, Blood Pressure and SpO2 Sterility Sterility: Hand Hygiene, Surgical Cap, Surgical Mask, Sterile Gloves and Chlorhexidine Sedation Given During Procedure Sedation Given (Indicate Dose Given): Versed IV Dose:: 1 mg Patient Mental Status Patient Mental Status: Sedate with meaningful communication Nerve Block 1st Nerve Block: Laterality: Right Block Type: Adductor Canal Needle / Catheter Used: 100mm SonoPlex II Local Anesthetic Bolus (Indicate Dose Given): Injected in 3-5ml increments after negative blood aspiration and Bupivacaine 0.25% Dose:: 20 ml Additives (Indicate Dose Given): None Ultrasound: Sterile probe cover and gel used Ultrasound Image Saved?: Yes Nerve Stimulator: Not Used Paresthesia: None Procedure Tolerated: No Complications and Patient tolerated well Procedure Outcome: Successful Performed By: Babatunde Costa
--- NOTE | 2021-03-30 10:58 | SYNOVIUM_PTH ---
PATIENT: Rob Rivera LOC: [facility] U#:[id number] AGE/SX: 80/M ROOM: RE03/30/[address]: Weston Ojeda MD : 1940 BED: DIS: 03/30/2021 SPEC #: [id number] RECD: 03/30/21 14:40 STATUS: CASSIDY REQ #: [id number] BROOKE: 03/30/21 10:[address]: Weston Ojeda DEPT: Surgical Specimen RECD BY: Nisa Bartlett ENTERED: 03/30/21 14:42 SP TYPE: SYNOVIUM OTHR DR: Ayana Covarrubias [facility] Tissues: 1 - SYNOVIUM/IAL Procedures: GROSS AND MICRO LEVEL 4 SPECIAL STAIN 1 Comments: [id number]
[2021-03-30] MEDS: Bupivacaine 0.25% Pres-Free 30 ML VIAL (11:05)
[2021-03-30] MEDS: Ketorolac 30 MG/ML VIAL (11:06)
[2021-03-30] MEDS: Normal Saline 20 ML VIAL (11:06)
--- NOTE | 2021-03-30 13:19 | W.ANESPOSTOP ---
Postoperative Evaluation Date, Time and Location Date Performed: 03/30/21 Time Performed: 13:19 Patient Location: PACU Vital Signs Most Recent Imported Vital Signs: Most Recent Vital Signs Temp Pulse Resp BP Pulse Ox 36.8 C 98 H 15 140/100 H 95 03/30/21 13:01 03/30/21 13:01 03/30/21 13:01 03/30/21 13:01 03/30/21 13:01 Pain Score Most Recent Pain Score: Most Recent Pain Score Pain Level 2 03/30/21 13:01 Assessment Mental Status: Awake (Alert & Oriented to Patient Baseline) Airway and Respiratory Function: Patent airway with normal (patient baseline) respiratory exam Cardiovascular Function: Hemodynamically Stable Hydration Status: Adequately Hydrated Nausea & Vomiting: No Nausea or Vomiting Pain: Pt. Denies Any Pain Peripheral Nerve Block: Regional nerve block not resolved at time of post operative discharge (Block working appropriately. ) Postoperative Comments:: Patient denies questions. Calm and comfortable.
[2021-03-30] MEDS: Lisinopril 20 MG TAB 40 MG PO (14:00)
--- NOTE | 2021-03-30 14:25 | PT.INIE ---
Date of service: 03/30/21 Time of Service: 14:25 PT Notes Visit Reasons: R TKR Physical Therapy Day Surgery Initial Evaluation Date: 03/30/2021 Referring Doctor: Weston Ojeda MD PT Orders: PT CONSULT: Status post Ortho surgery Precautions: WBAT on right LE. Patient Profile/Admitting Diagnosis: Rob is a 80-year-old male with primary unilateral osteoarthritis of the right knee and is status post right total knee arthroplasty on postoperative day 0. PMHX: Medical History (Updated 03/16/21 @ 13:09 by Gracia Maldonado MD) Benign prostatic hyperplasia DIVERTICULOSIS Dupuytren's disease Essential hypertension Hypertension Normal colonoscopy (09/07/18) 09/07/18 Dr Kurt Ying, [facility], normal, would be repeat in 10 years but due to age, repeat as needed. mg Obesity Peripheral venous insufficiency Preoperative cardiovascular examination Surgical History Colonoscopy - IV Sedation (~2006) MINDA Social History/Home Situation: Lives with in a private home with 4 steps to enter with 1 rail. Equipment Owned/DME: Standard walker Subjective: Agreeable to PT consult. Denies headache, chest pain, and dizziness throughout session. Agreeable to utilizing a front wheeled walker instead after recommendations about instability and inadequate with were given to patient. Objective: General Observation: Supine in DSU bed. SEBASTIAN wraps on right LE. Cryocuff on right LE. Mental Status: Alert and oriented x4 Pain: 2/10 ROM: Right Lower Extremity: Hip flexion WFL. Hip abduction WFL. Knee flexion 10 degrees to 80 degrees. Knee extension -10 degrees ankle dorsiflexion WFL. Ankle plantarflexion WFL. Left Lower Extremity: Hip flexion WFL. Hip abduction WFL. Knee flexion WFL. Ankle dorsiflexion WFL. Ankle plantarflexion WFL. Strength: Right Lower Extremity: Hip flexors 5/5. Hip abductors 4/5. Knee flexors 3-/5. Knee extensors 3-/5. Ankle dorsiflexors 5/5. Ankle plantarflexors 5/5. Left Lower Extremity:Hip flexors 5/5. Hip abductors 5/5. Knee flexors 5/5. Knee extensors 5/5. Ankle dorsiflexors 5/5. Ankle plantarflexors 5/5. Sensation: Intact as to pain pressure in bilateral lower extremities Bed Mobility/Transfers: Supine to sit supervision Sit to stand standby assist Stand to sit standby assist Bed to chair standby assist Gait: Patient tolerated level surface ambulation of 150 feet using front wheeled walker with step through gait pattern requiring contact-guard assist. Balance: Static Sitting: Normal Dynamic Sitting: Normal Static Standing: Fair Dynamic Standing: Fair Special Tests: Mobility Limitations Standardized Measure [facility] 6 clicks Basic Mobility Inpatient Short Form: Raw Score: 22 CMS Score: 21% deficit Informed Consent/Education: Patient instructed in purpose of PT consult. Packet containing TKA exercise protocol has been given to patient. Education and training on initial set of exercises that can be done at home have been completed with patient. Assessment: Patient requires the use of a front wheel walker to maximize independence and reduce fall risk at home. Patient presents with clinical signs and symptoms consistent with current/admitting diagnoses that have resulted to mobility limitations, gait instability, generalized weakness, and impairment of motor control as demonstrated by the following impairment level findings: 1. Decreased strength to right knee major muscle groups 2. Impaired standing balance 3. Limitation of joint range of motion in right knee Impairments are contributing to the following functional limitations: 1. Inability to safely ambulate without assistive device 2. Increase completion time for mobility ADL performance 3. Increased fall risk Patient is assessed as a 89278 complexity based on the following: History: 80-year-old male with impairment level findings, functional limitations, and past medical history as indicated above Examination: Demonstrable impairment in strength, balance, and mobility level with underlying impairments and functional limitations as documented above Presentation: Evolving Decision Makin moderate complexity Goals: N/A. PT evaluation and 1-2 treatment sessions only for functional mobility training using recommended AD and for HEP instruction. Plan of Care/Treatment Plan: N/A. PT evaluation and 1-2 treatment session only for functional mobility training using recommended AD and for HEP instruction. DISCHARGE RECOMMENDATIONS: Home when medically cleared by orthopedic surgeon. Outpatient physical therapy services to facilitate return to premorbid independent community ambulation. TREATMENT CODE/TIME: 39371 x 20 minutes, 66761 x 20 minutes beginning at 14:25 PM. Thank you for the opportunity to participate in the care of this patient. Abbi Ferreira PT, DPT, CLT [facility], [place]
--- NOTE | 2021-03-30 21:08 | ROE_ITS ---
Date of service: 03/30/21 Time of Service: 12:38 Operative Note Operative Note DATE OF PROCEDURE: 03/30/21 PRE-OP DIAGNOSIS: Right Knee Osteoarthritis POST-OP DIAGNOSIS: other Diffuse Synovitis - Right Knee PROCEDURE: Right Total Knee Replacement SURGEON: Weston Ojeda MANAGER AMBULATORY: Lis Avendaño ANESTHESIA TYPE: Spinal Refer to Anesthesia Record ESTIMATED BLOOD LOSS: 250 PATHOLOGY: none sent TOURNIQUET TIME: 26 COMPLICATIONS: None Patient was transported to: PACU Patient's condition: stable Implants: 1. Depuy Attune Cruciate Retaining Femoral Component, Size 9 2. Depuy Attune Rotating Platform Tibial Component, Size 8 3. Depuy Attune 9x7 CR,RP Poly 4. Depuy Attune Patellar Component, Size 41 Indications: I have seen Rob in clinic for symptoms of knee arthritis, confirmed with radiographic findings. He has exhausted nonoperative methods and was having significant limitations in daily function and desired better function and less pain. Recently his motion had been quickly declining and pain increasing. I discussed the technical details of a knee replacement. I explained the risks of the procedure to include, but not limited to, bleeding, infection, pain, stiffness, fracture, damage to nerves and vessels, damage to muscles and tendons, loosening, need for repeat procedure, blood clot and cardiopulmonary demise. Despite these risks, he elected to proceed. Findings: There was a massive effusion about the knee in addition to significant amounts of hypertrophic and somewhat necrotic appearing synovium. An aggressive synovectomy was performed throughout the entirety of the knee and portions of the synovium were sent for microbiologic analysis as well as pathologic analysis. There is significant destruction of the cartilage surfaces of all parts of the knee. Procedure Description: Rob was greeted in the preoperative holding area where the correct side was identified and marked. The consent was reviewed with the patient and signed. The history and physical was updated. All questions were answered. Preoperative mediacations were administered: Acetaminophen 1000mg, Celebrex 400mg, and Gabapentin 300mg. An adductor canal block was then administered by the anesthesia team in the PACU. Rob was taken back to the operating room. A spinal anesthestic was then administered. The patient was placed into the supine position on the operating room table. A nonsterile tourniquet was placed high onto the leg but only used for cementing. Posts were placed for positioning during the proced ure. All bony prominences were well padded. Prophylactic antibiotics in the form of cefazolin were administered. 1g of Tranxemic Acid was given intravenously within 30 minutes of incision. The right leg was then prepped with Chloraprep and draped in a standard fashion with impervious stockinette and extremity drape. A second prep with Chloraprep was performed prior to placing Ioband. A timeout to confirm correct identity, side and site, procedure, allergies, anesthesia, and medical concerns was performed. With the knee in some flexion, a midline incision was made overlying the knee. Full thickness skin flaps were raised once the extensor mechanism was encountered. These were raised medially and laterally. Any bleeding was controlled with electrocautery. Once the extensor mechanism was fully exposed, a medial parapatellar arthrotomy was performed in a flexed position. Immediately, there was evacuation of a large, massive, effusion about the knee. This fluid had a normal appearance to it for inflammatory knee. There is no gross purulence. However, there is significant hypertrophic and even necrotic appearing synovium seen immediately. All bleeding from the arthrotomy and the geniculate arteries was coagulated. A medial subperiosteal peel was performed with electrocautery to the midcoronal plane. The fat pad was removed while keeping the patellar tendon protected. With the knee exposed there was significant synovitis, some alvarado and dark red in appearance and some white and nodular. An aggressive synovectomy was then performed taking all this tissue out. I sent a large portion to pathology for evaluation and I also sent some fluid and tissue to the lab for microbiologic analysis. There is no preoperative concern for infection and therefore I proceeded with the planned knee replacement after performing the aggressive synovectomy. There was no gross purulence although there was appearing synovium. The ACL and PCL were resected and the anterior horn of the lateral meniscus was transected. The knee was then flexed with the patella everted. Large osteophytes from the tibia were removed. Large osteophytes from the femur were removed. Using a step drill, and based on preoperative templating, the femoral canal was entered. This was done with a step drill without any difficulty. The intramedullary distal femoral cut guide was inserted, set to a 5 degree valgus cut and 10mm cut thickness. There was some hypoplasia of the lateral femoral condyle and any remnant cartilage of the medial femoral condyle was removed for appropriate thickness. The distal femoral cut guide was then held in position and pinned. With the soft tissues protected, the distal cut was performed. This was passed over a few times to ensure a planar cut. I then turned attention to the tibia. The extramedullary guide was placed onto the leg. The distal aspect was slid medial to adjust for position of center of ankle and stay in line with shaft of the tibia. Approximately 3-5 degrees of posterior slope was kept in the proximal cutting guide. The center of the guide was aligned with the PCL. The stylus was used to assess cut thickness. The medial side, most involved side, was set for a 4mm cut. This was then held in position and pinned into place with 2 additional pins and a cross pin for stability. The medial and lateral collateral ligaments were protected and the cut was performed. With this completed, it was assessed and noted to be of appropriate dimensions. The guide was removed. A spacer block was inserted and the knee was brought into extension. The 6mm spacer block provided full extension, without hyperextension and with stability of both the medial and lateral collateral ligaments was assessed. The pins from the femur and the tibia were then removed. The distal femur was then sized. The anterior stylus was placed onto the lateral ridge of the anterior femur. This indicated a size 9 femur. The external rotation of the guide was adjusted to 3 degrees to match the epicondylar axis, perpendicular to Elda?s line. The 4-in-1 cutting guide was the placed. The posterior medial femur cut was evaluated and appeared of good thickness. The spacer block was inserted underneath the cutting guide and stability was confirmed in 90 degrees of flexion. An simba wing was used to confirm appropriate position of the anterior cut to avoid notching. This cutting guide was ensured to be flush on the cut surface and then pinned into place with headed pins. While protecting the soft tissues, quad tendon, and collateral ligaments, the anterior and posterior cuts were performed with a saw. The central two pins were removed and the posterior and anterior chamfers were cut next. The notch-cutting guide was placed. This was pinned to lateralize the femoral component as much as possible while keeping it flush on the cut surface. This was then pinned into position. A reciprocating saw was used to make the small notch cut. A trial CR femoral component was then inserted, impacted down to the cut surfaces, and the lug holes were drilled. A provisional trial tibial component was placed and the knee was brought through range of motion. The polyethylene was trialed until there was good flexion and extension with excellent stability to the medial and lateral collaterals. The patella was tracking without thumbs. The tibial cut surface was fully exposed. The medial and lateral menisci were removed. The tibia was then sized as a 8. The tibia had been previously marked during trialing to correspond to the center of the tibial component to help with rotation. The trial was aligned to this lis, approximately rotated to the medial 1/3rd of the tibial tubercle. The trial was pinned into place. The tibia was prepared with a reamer and a keel punch. The knee was then brought into extension and the patella was measured as 29mm. Using the patellar clamp and cut guide, this was resected to a flat surface with at least 13mm of thickness remaining. The size 41 patella fit the best. This was oriented and then clamped into position. The lugs were drilled. The trial components were removed. The final components, except for the polyethylene were opened on the back table. The periosteal and capsular tissues, especially posteriorly, around the knee were then systematically injected with a periarticular cocktail consisting of 50cc 0.25% Marcaine, 30mg Ketorolac, 20cc of Exparal and 50cc of injectable saline. The tourniquet was then inflated to 275mmHg. The knee was thoroughly irrigated with a pulse lavage and dried. On the back table, with the implants opened, the cement was mixed. 2 batches of medium viscosity cement were prepared with vacuum assistance. After the cement was ready it was placed on to the back side of the tibial component. A small amount was placed onto the posterior flange of the femur. Cement was manual pressurized and impregnated into the cut surface of the tibia. The tibial component was then inserted into the cut surface and impacted into position. Excess cement was removed and the component was reimpacted. Again, excess cement was removed and our attention was then turned to the femur. The femoral cut surface was once again dried and cement was manually impacted into the cut surface. The femoral component was lined with the lug holes and impacted. Excess cement was removed. It was ensured to be down against the cut surface. The trial polyethylene was then inserted and the leg was brought out into full extension for the duration of the cement curing process, approximately 18min. Cement was lastly manually impacted into the cut surface of the patella and the patellar button was clamped into position and held. During this process attention was turned to the gutters of the knee and for all interfaces for any excess cement. While the cement was hardening, the knee was irrigated with Irrisept chlorhexadine solution. It was allowed to sit in the knee for 3 minutes. After the cement had finally cured, approximately 18min, the clamp was removed from the patella and the knee was taken through range of motion. A size 7mm polyethylene component provided the best range of motion and stability with less than 2mm gapping with medial and lateral stress and full extension without significant hyperextension. The patella was tracking with a no-thumbs technique. The trial poly was removed and once again the knee was checked for any loose, excess, or errant cement. The poly component was then inserted into position after cleaning and drying the tibial tray. The capsule was then reapproximated with a No. 1 Vicryl at multiple locations. The capsule was finally closed with a No. 2 Stratafix, barbed suture. The tourniquet was then released and the arthrotomy appeared watertight without significant bleeding. The second dosing of 1g TXA was started. Deep tissues were then reapproximated with 0 Vicryl and 2-0 Vicryl. The skin was closed with a running 3-0 Monocryl in a subcuticular fashion. This was reinforced with skin glue. A Mepilex silver dressing was applied along with a [id number] SEBASTIAN wrap. A CryoCuff was applied. Rob was transferred to the hospital bed without difficulty an suffering no apparent complication. Rob has a good prognosis. Physical therapy will start today and without restrictions, weight-bearing as tolerated. He will resume his home dose of Eliquis for DVT prophylaxis. While I am awaiting the results from the microbiology lab and pathology, I will start Cristhian on a prophylactic antibiotic given the appearance of the knee and his obesity and metabolic syndrome. This will be modified and likely discontinued after initial results are obtained.
== END 2021-03-30 15:55 | disposition home or self-care (01) ==
PROVIDERS: PCP Nurse Practitioner Family; Visit Provider Student in an Organized Health Care Education/Training Program
PROC: (CPT 27447; principal; 2021-03-30 10:15)
DX: M17.11 Unilateral primary osteoarthritis, right knee (principal); I10 Essential (primary) hypertension; E78.5 Hyperlipidemia, unspecified; G89.18 Other acute postprocedural pain; Z96.651 Presence of right artificial knee joint
CPT/HCPCS: 27447; C1776; 88305; 97162; 97530; 87070; 87075; 87205; 88312; J0690; J1100; J1885; J2001; J2250; J2370; J2405

== ENCOUNTER → 2021-04-01 14:28 | Outpatient (BNVA) | payer MEDICARE, BC, SELFPAY | PROVIDERS: PCP Nurse Practitioner Family; Referring Provider Nurse Practitioner Family; Visit Provider Internal Medicine Cardiovascular Disease | DX: I48.20 Chronic atrial fibrillation, unspecified (principal); I10 Essential (primary) hypertension; Z79.899 Other long term (current) drug therapy; Z79.01 Long term (current) use of anticoagulants | CPT/HCPCS: 99442; 99213 ==

== ENCOUNTER 2021-04-12 10:53 | Outpatient (CLI) | payer MEDICARE, BC, SELFPAY ==
--- NOTE | 2021-04-12 10:15 | DI.RAD_ITS ---
Exam(s) XR STANDING ALIGNMENT EXAM: XR STANDING ALIGNMENT CLINICAL HISTORY: R TKA. TECHNIQUE: 2D digital imaging was performed. COMPARISON: CR XR STANDING ALIGNMENT from 03/15/2021 FINDINGS: There has been interval placement of a right knee prosthesis. This appears to be in satisfactory pos ition. There are mild degenerative changes in the opposite-left knee. Mild degenerative changes in the left hip. No osseous lesions. Calcification within the interosseous ligament between the right tibia and fibula is noted. Ankles unremarkable. Dystrophic calcification is noted in the soft tissu es of the right thigh. IMPRESSION: DATA REPOSITORY: RADIATION DOSE DELIVERED:
--- NOTE | 2021-04-12 10:15 | DI.RAD_ITS ---
Exam(s) XR KNEE RT 1V EXAM: XR KNEE RT 1V CLINICAL HISTORY: R TKA. TECHNIQUE: 2D digital imaging was performed. COMPARISON: CR XR KNEE RT 1V from 03/15/2021 FINDINGS: Single lateral view of the right knee reveals satisfactory position alignment of the components of th e prosthesis. No fracture or loosening evident on this view. Incidentally noted is bridging calcification in the interosseous ligament between the diaphyses of th e fibula and tibia. IMPRESSION: DATA REPOSITORY: RADIATION DOSE DELIVERED:
== END 2021-04-12 10:54 | disposition home or self-care (01) ==
LOC: DIORS 10:53
PROVIDERS: PCP Nurse Practitioner Family; Referring Provider Nurse Practitioner Family; Visit Provider Physician Assistant
DX: Z96.651 Presence of right artificial knee joint (principal); Z47.1 Aftercare following joint replacement surgery
CPT/HCPCS: 73560; 77073

== ENCOUNTER → 2021-05-14 08:48 | Outpatient (BNVA) | payer MEDICARE, BC, SELFPAY | PROVIDERS: PCP Nurse Practitioner Family; Referring Provider Nurse Practitioner Family; Visit Provider Student in an Organized Health Care Education/Training Program | DX: Z47.1 Aftercare following joint replacement surgery (principal); Z96.651 Presence of right artificial knee joint ==

== ENCOUNTER 2021-06-14 20:59 | Outpatient (REF) | payer MEDICARE, BC, SELFPAY ==
[2021-06-14 21:44] LABS: ALT 25 U/L (16-63); AST 20 U/L (15-37); Alkaline Phosphatase 93 U/L (46-116); Anion Gap 7.4 mmol/L (3-11); BUN 36 mg/dL (7-18); Bilirubin, Total 0.3 mg/dL (0.2-1.0); CO2 28.6 mmol/L (21.0-32.0); CREATININE 1.4 mg/dL (0.70-1.30); Calcium 9.3 mg/dL (8.5-10.1); Calculated LDL 62 mg/dL (<100); Chloride 107 mmol/L (98-107); Cholesterol 123 mg/dL (<200); Estimated GFR 49.01 (mL/min/1.73m2); Glucose 91 mg/dL (74-106); HDL Cholesterol 33 mg/dL (40-60); Potassium 5.4 mmol/L (3.5-5.1); Sodium 143 mmol/L (136-145); Total Protein 7.8 g/dL (6.4-8.2); Triglyceride 142 mg/dL (<150)
== END 2021-06-14 21:00 | disposition home or self-care (01) ==
LOC: NCHCN 20:59
PROVIDERS: PCP Nurse Practitioner Family; Visit Provider Nurse Practitioner Family
DX: I10 Essential (primary) hypertension (principal); R73.03 Prediabetes; E78.6 Lipoprotein deficiency; N18.9 Chronic kidney disease, unspecified; I48.91 Unspecified atrial fibrillation
CPT/HCPCS: 80053; 80061

== ENCOUNTER 2021-06-22 21:51 | Outpatient (REF) | payer MEDICARE, BC, SELFPAY ==
[2021-06-22 22:19] LABS: Anion Gap 6.2 mmol/L (3-11); BUN 29 mg/dL (7-18); CO2 30.8 mmol/L (21.0-32.0); CREATININE 1.3 mg/dL (0.70-1.30); Calcium 9.2 mg/dL (8.5-10.1); Chloride 107 mmol/L (98-107); Estimated GFR 53.39 (mL/min/1.73m2); Glucose 120 mg/dL (74-106); Sodium 144 mmol/L (136-145)
== END 2021-06-22 21:52 | disposition home or self-care (01) ==
LOC: NCHCN 21:51
PROVIDERS: PCP Nurse Practitioner Family; Visit Provider Nurse Practitioner Family
DX: E87.5 Hyperkalemia (principal)
CPT/HCPCS: 80048

== ENCOUNTER → 2021-06-25 10:12 | Outpatient (BNVA) | payer MEDICARE, BC, SELFPAY | PROVIDERS: PCP Nurse Practitioner Family; Visit Provider Student in an Organized Health Care Education/Training Program | DX: Z47.1 Aftercare following joint replacement surgery (principal); Z96.651 Presence of right artificial knee joint ==

== ENCOUNTER 2021-07-13 13:49 | Outpatient (REF) | payer MEDICARE, BC, SELFPAY ==
[2021-07-13 22:26] LABS: ALT 24 U/L (16-63); AST 19 U/L (15-37); Albumin 3.9 g/dL (3.4-5.0); Alkaline Phosphatase 92 U/L (46-116); Anion Gap 6.2 mmol/L (3-11); BUN 28 mg/dL (7-18); Bilirubin, Total 0.4 mg/dL (0.2-1.0); CO2 28.8 mmol/L (21.0-32.0); CREATININE 1.3 mg/dL (0.70-1.30); Calcium 9.3 mg/dL (8.5-10.1); Chloride 108 mmol/L (98-107); Estimated GFR 53.39 (mL/min/1.73m2); Glucose 99 mg/dL (74-106); Potassium 5.1 mmol/L (3.5-5.1); Sodium 143 mmol/L (136-145); Total Protein 7.4 g/dL (6.4-8.2)
== END 2021-07-13 13:50 | disposition home or self-care (01) ==
LOC: NCHCN 13:49
PROVIDERS: PCP Nurse Practitioner Family; Visit Provider Nurse Practitioner Family
DX: I10 Essential (primary) hypertension (principal); E87.5 Hyperkalemia; N18.9 Chronic kidney disease, unspecified
CPT/HCPCS: 80053

== ENCOUNTER → 2021-09-30 12:53 | Outpatient (BNVA) | payer MEDICARE, SELFPAY | PROVIDERS: PCP Family Medicine; Referring Provider Nurse Practitioner Family; Visit Provider Internal Medicine Cardiovascular Disease | DX: I10 Essential (primary) hypertension (principal); I48.20 Chronic atrial fibrillation, unspecified | CPT/HCPCS: 99213 ==

== ENCOUNTER 2021-12-30 11:15 | Outpatient (CLI) | payer MEDICARE, SELFPAY ==
--- NOTE | 2021-12-30 11:01 | DI.RAD_ITS ---
Exam(s) XR KNEE LT 4V AP,LAT,DREW,PAT EXAM: XR KNEE LT 4V AP,LAT,DREW,PAT CLINICAL HISTORY: L knee pain. TECHNIQUE: 2D digital imaging was performed. COMPARISON: CR XR KNEE RT 1V from 04/12/2021 FINDINGS: Four views There is no evidence of fracture. Minimal amount of increased joint fluid noted. Moderate narrowing of the medial compartment of the knee is noted. Lateral compartment exhibits normal height. Mild d egenerative changes noted in the patellofemoral compartment. Bone density is age-appropriate. No os seous lesions. IMPRESSION: Moderate degenerative narrowing of the medial compartment noted. DATA REPOSITORY: RADIATION DOSE DELIVERED:
== END 2021-12-30 11:16 | disposition home or self-care (01) ==
LOC: DIORS 11:15
PROVIDERS: PCP Family Medicine; Visit Provider Student in an Organized Health Care Education/Training Program
DX: M25.562 Pain in left knee (principal)
CPT/HCPCS: 99213; 73564

== ENCOUNTER 2022-03-31 11:12 | Outpatient (CLI) | payer MEDICARE, SELFPAY ==
--- NOTE | 2022-03-31 10:00 | DI.RAD_ITS ---
Exam(s) XR KNEE RT 2V AP,LAT EXAM: XR KNEE RT 2V AP,LAT CLINICAL HISTORY: ANNUAL F/U R TKA. TECHNIQUE: 2D digital imaging was performed. Two images were obtained. AP and lateral views were ob tained. COMPARISON: CR XR KNEE RT 1V from 04/12/2021 CR XR STANDING ALIGNMENT from 04/12/2021 FINDINGS: BONES: There are stable post operative changes present. No fracture or dislocation. There is an enth esophyte at the superior patella. JOINTS: The orthopedic hardware is in good position. There is a small joint effusion. SOFT TISSUE: Normal. IMPRESSION: Stable postoperative changes. DATA REPOSITORY: RADIATION DOSE DELIVERED:
== END 2022-03-31 11:13 | disposition home or self-care (01) ==
LOC: DIORS 11:12
PROVIDERS: PCP Family Medicine; Visit Provider Student in an Organized Health Care Education/Training Program
DX: Z96.651 Presence of right artificial knee joint (principal)
CPT/HCPCS: 73560; 99213

== ENCOUNTER 2022-11-24 01:47 | Outpatient (CLI) | payer MEDICARE, SELFPAY ==
[2022-11-24 10:58] LABS: Anion Gap 7.8 mmol/L (3-11); BUN 37 mg/dL (7-18); CO2 28.2 mmol/L (21.0-32.0); CREATININE 1.8 mg/dL (0.70-1.30); Calcium 9.8 mg/dL (8.5-10.1); Chloride 106 mmol/L (98-107); Estimated GFR 37.58 (mL/min/1.73m2); Glucose 100 mg/dL (74-106); Potassium 4.9 mmol/L (3.5-5.1); Sodium 142 mmol/L (136-145)
== END 2022-11-24 01:48 | disposition home or self-care (01) ==
LOC: LBO 01:47
PROVIDERS: PCP Family Medicine; Visit Provider Family Medicine
DX: I10 Essential (primary) hypertension (principal)
CPT/HCPCS: 36415; 80048

== ENCOUNTER 2022-12-29 02:29 | Outpatient (CLI) | payer MEDICARE, SELFPAY ==
--- NOTE | 2022-12-29 13:58 | DI.RAD_ITS ---
Exam(s) XR LUMBAR SPINE COMP W FLEX/EX EXAM: XR LUMBAR SPINE COMP W FLEX/EX CLINICAL HISTORY: eval vert, acute lumbar back pain, M54.50, low back pain. TECHNIQUE: 2D digital imaging was performed of the lumbar spine. Eight images were obtained. AP, l ateral, right oblique, left oblique and L5-S1 spot views were obtained. COMPARISON: No exams were available for comparison FINDINGS: BONES: No fracture or destructive lesion. Vertebral bodies are unremarkable. No facet hypertrophy rafita ntified. Flowing osteophytes are seen at all levels of the lower thoracic and lumbar spine. DISKS: Intervertebral disc spaces are maintained. ALIGNMENT: Lumbar spinal alignment is within normal limits. No spondylolysis or spondylolisthesis. SOFT TISSUE: Atherosclerosis is present. 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 DATA REPOSITORY: RADIATION DOSE DELIVERED:
== END 2022-12-29 02:49 ==
PROVIDERS: PCP Family Medicine; Visit Provider Student in an Organized Health Care Education/Training Program
DX: M25.78 Osteophyte, vertebrae (principal); M48.14 Ankylosing hyperostosis [Forestier], thoracic region; M54.50 Low back pain, unspecified
CPT/HCPCS: 72114

== ENCOUNTER 2023-03-31 07:22 | Outpatient (CLI) | payer MEDICARE, SELFPAY ==
--- NOTE | 2023-03-31 07:15 | RT.EKG_ITS ---
APPROVED REPORT Exam: Resting ECG Reason for Exam: cardiac evaluation Patient Location: O HR:76 bpm ECG Measurements Heart Rate 76 AXIS IN [id number] P [id number] QRSd 102 QRS -53 QT 390 T 89 QTc 439 Conclusion Atrial flutter with predominant 3:1 AV block...A-rate 223, multiple Ps Left axis, possible old inferior infarct Consider anterior infarct...Q >30mS in V2-V5
== END 2023-03-31 07:23 | disposition home or self-care (01) ==
LOC: DI.CARD 07:23
PROVIDERS: PCP Family Medicine; Visit Provider Internal Medicine Cardiovascular Disease
DX: I10 Essential (primary) hypertension (principal); I48.20 Chronic atrial fibrillation, unspecified
CPT/HCPCS: 93010

== ENCOUNTER → 2023-03-31 13:33 | Outpatient (BNVA) | payer MEDICARE, SELFPAY | PROVIDERS: PCP Family Medicine; Referring Provider Family Medicine; Visit Provider Internal Medicine Cardiovascular Disease | DX: Z79.01 Long term (current) use of anticoagulants (principal); I12.9 Hypertensive chronic kidney disease with stage 1 through stage 4 chronic kidney disease, or unspecified chronic kidney disease; N18.9 Chronic kidney disease, unspecified; I48.20 Chronic atrial fibrillation, unspecified | CPT/HCPCS: 93005; 99214 ==

== ENCOUNTER 2023-05-15 13:37 | Outpatient (CLI) | payer MEDICARE, SELFPAY ==
[2023-05-15 15:21] LABS: HGB 13.1 g/dL (13.5-17.5)
[2023-05-15 15:36] LABS: Hemoglobin A1C 5.4 % (<5.7)
[2023-05-15 15:52] LABS: Anion Gap 8.9 mmol/L (3-11); BUN 45 mg/dL (7-18); CO2 27.1 mmol/L (21.0-32.0); CREATININE 2.1 mg/dL (0.70-1.30); Calcium 9.4 mg/dL (8.5-10.1); Chloride 107 mmol/L (98-107); Estimated GFR 31.23 (mL/min/1.73m2); Glucose 117 mg/dL (74-106); Potassium 4.5 mmol/L (3.5-5.1); Sodium 143 mmol/L (136-145)
== END 2023-05-15 13:38 | disposition home or self-care (01) ==
PROVIDERS: PCP Family Medicine; Visit Provider Student in an Organized Health Care Education/Training Program
DX: M54.50 Low back pain, unspecified (principal); N18.9 Chronic kidney disease, unspecified; Z88.6 Allergy status to analgesic agent; I10 Essential (primary) hypertension; R73.09 Other abnormal glucose
CPT/HCPCS: 36415; 80048; 83036; 85018

== ENCOUNTER 2023-05-26 09:18 | Inpatient (IN) | payer MEDICARE, SELFPAY ==
[2023-05-26] VITALS (87 sets, daily range): BP systolic 78–140; BP diastolic 43–115; PULSE 62–118; RESP 16–38; TEMP 36–38.6; O2SAT 88–98
--- NOTE | 2023-05-26 09:15 | DI.RAD_ITS ---
Exam(s) XR PORTABLE CHEST AP EXAM: XR PORTABLE CHEST AP CLINICAL HISTORY: hypoxia TECHNIQUE: 2D digital imaging was performed. COMPARISON: No exams were available for comparison FINDINGS: LUNGS: Clear. No pleural abnormality seen. HEART: Mildly enlarged. AORTA: Ectatic. BONES: Unremarkable for age. Soft tissues: Unremarkable. IMPRESSION: No acute findings. DATA REPOSITORY: RADIATION DOSE DELIVERED:
--- NOTE | 2023-05-26 09:15 | RT.EKG_ITS ---
APPROVED REPORT Exam: Resting ECG Reason for Exam: EKG changes per EMS Patient Location: E HR:94 bpm ECG Measurements Heart Rate 94 AXIS SD [id number] P [id number] QRSd 100 QRS -63 QT 397 T 85 QTc 497 Conclusion atrial flutter rate [address] segment changes
--- NOTE | 2023-05-26 09:47 | ED.GENADUL_ITS ---
Discharge Plan Disposition Patient Disposition: Admit to [facility] Condition: Critical Discharge Details Clinical Impression: Acute hypoxic respiratory failure, Multi-organ failure with heart failure, Heart failure, Severe sepsis Admit Date/Time: 05/26/23 10:52 Admit Provider: Arnaldo Mensah Attending Provider: Arnaldo Mensah Primary Care Provider: oJe Butt ED Provider: Joselin David Medical Decision Making Emergent evaluation of altered mental status. Initial differential includes sepsis, hypoxia, less likely Guillain-Nguyen?. Patient is altered and not able to fully participate with examination. He is noted to be febrile, tachycardic, tachypneic, hypoxic. He is now on supplemental oxygen and maintaining a normal oxygen saturation. He still has an increased work of breathing. Lab work including cultures have been ordered. Empiric antibiotic therapy has been initiated. Given his increased work of breathing at this time I will not give IV fluids with concern for possible volume overload. I will start gentle resuscitation after I reviewed the chest x-ray. 1045: Chest xray reviewed, concern for cardiomegaly. Given his respiratory status and BNP, will not give sepsis fluids. Lab work reviewed, normal white blood cell count, no significant anemia. Mild thrombocytopenia noted. Multiple signs of multiorgan failure including elevation in LFTs and worsening renal function. Elevated troponin and significantly elevated BNP noted. Repeat EKG without acute ischemic changes. Patient has no history of heart failure. reports that he has never had a stress test or catheterization. He has not complained of chest pain over the last 3 days. Initial lactic and procalcitonin are elevated. Patient has severe sepsis, at this time source is unknown. Discussed with the hospitalist who reports that the patient can be admitted to this hospital. Will be admitted for further management. 1110: patient BP downtrending, will monitor closely and start levophed as needed. Repeat EKG with QTc that is prolonging, will give a dose of mag. 1130: UA reviewed, blood but no infection noted. Medical Records Medical records reviewed: Yes I reviewed the patient's medical records. Lab Data Lab results reviewed: Yes I reviewed the patient's lab results. ECG Data Attestation: I personally reviewed and interpreted this ECG (s) as follows: Prior ECG tracings: available for review Interpretation: A flutter rate 94, nonspecific ST segment changes, no acute ischemic changes HPI General Date/Time Provider Initiated Documentation: 05/26/23 09:23 . Limitations to Documentation: altered mental status . Information obtained by: patient, family and EMS . HPI Narrative: 82-year-old gentleman with past medical history including CKD, chronic A-fib, hypertension presents for evaluation of altered mental status. EMS reports that the patient got his flu shot 3 days ago and since that time he has been sitting in his recliner chair. He has not gotten up. He is not eating. His well reports that he is confused. They noted that he did also have a fever. They report that he has been using the bathroom in the chair Related Data Home Medications Medication Instructions Recorded Confirmed atorvastatin 20 mg tablet 20 mg PO DAILY #90 tabs 11/10/22 05/26/23 hydrochlorothiazide 25 mg tablet 25 mg PO DAILY #90 tabs 11/10/22 05/26/23 losartan 50 mg tablet 50 mg PO DAILY #90 tabs 11/10/22 05/26/23 metoprolol succinate 100 mg 100 mg PO DAILY #90 tabs 12/05/22 05/26/23 tablet,extended release 24 hr apixaban 5 mg tablet (Eliquis) 5 mg PO DAILY 05/26/23 05/26/23 Previous Rx's Medication Instructions Recorded atorvastatin 20 mg tablet 20 mg PO DAILY #90 tabs 11/10/22 hydrochlorothiazide 25 mg tablet 25 mg PO DAILY #90 tabs 11/10/22 losartan 50 mg tablet 50 mg PO DAILY #90 tabs 11/10/22 metoprolol succinate 100 mg 100 mg PO DAILY #90 tabs 12/05/22 tablet,extended release 24 hr Allergies Allergy/AdvReac Type Severity Reaction Status Date / Time lisinopril AdvReac Intermediate Verified 05/26/23 09:24 General Stated Complaint: AMS/LOC CAROLEE: 2 PFSH All Active Problems (Updated 05/26/23 @ 10:46 by Joselin David MD) Severe sepsis (Acute) Heart failure (Acute) Multi-organ failure with heart failure (Acute) Acute hypoxic respiratory failure (Acute) Acute lumbar back pain (Acute) De Quervain's tenosynovitis, right (Acute) Osteoarthritis of left knee (Acute) Left knee pain (Acute) Pre-diabetes (Acute) CKD (chronic kidney disease) (Chronic) Venous insufficiency (Acute) Dupuytrens contracture (Chronic ~2016) Hypertension (Chronic) BPH (benign prostatic hyperplasia) (Chronic) Atrial fibrillation, chronic (Chronic ~03/02/21) eliquis began 03/02/21, stress test and echo 03/22/[address] Maldonado Renal insufficiency (Chronic) Dyslipidemia (Chronic) low HL Abdominal obesity and metabolic syndrome (Acute) HTN (hypertension) with goal to be determined (Acute) Medical History Tubular adenoma on colonoscopy 01/02/13, repeat 09/07/18 WNL Hyperkalemia Due to SEBASTIAN inhibitor Normal colonoscopy (09/07/18) 09/07/18 Dr Kurt Ying, [facility], normal, would be repeat in 10 years but due to age, repeat as needed. 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 Walko 01/02/13, 09/07/18 wnl Family History Mother Personal history of malignant neoplasm Father Asthma Social History Smoking/Tobacco Use Status: Never Smoking risk assessment performed?: Yes Alcohol Intake: never Drug use: Never Substance use type: does not use Counseling provided: none (Non Applicable) Adopted: No Caregiver/Support person: No Foster care: No Household members: spouse Housing: house Number of Children: 2 number of grandchildren: 3 Communication Needs: None Education Level: master's degree Do you need help understanding health information?: Never current occupation: Retired Pets and animals: No Sexually active: No Do you think of yourself as: straight/heterosexual Current gender identity: male What is your relationship status?: How often do you talk on the phone with friends or family?: twice per week How often do you get together with friends or relatives?: once per week Do you belong to any clubs or organized social groups?: no Panel score (0-1 are the most socially isolated patients): 2 What type of physical activity do you participate in: walking and other Details: working Duration: > 90 minutes/day Frequency: 5-6 times per week Gail/Denominational: Hinduism Special gail needs: No Seatbelt use: sometimes Helmet use: No (Never) Drive intox or ride w/intox delivery driver/supervisor: No Do you feel safe at home: Yes Do you feel safe in your relationship?: Yes Exam Narrative Exam Narrative: Review of Systems: All systems reviewed & are unremarkable except as noted in HPI and below: CONSTITUTIONAL: Alert , confused, slow to answer questions Well-developed, + distress HEENT: NACT EYES: PERRL, no conjunctival injection NOSE nares patent MOUTH dry MM NECK: Symmetric, trachea midline, No thyromegaly CVS: irregularly irregular, No murmurs or gallops. Peripheral pulses 2+ and equal in all extremities Brisk capillary refill in all extremities. No peripheral edema RESP: +tachypnea, increased work of breathing, diminished breath sounds with crackles bilaterally 95% on 4L GI: Soft, Nontender, Nondistended, No organomegaly MSK: Extremities with full range of motion, no deformity or TTP SKIN: Warm, Dry. No rashes or lesions. NEURO: No focal neurologic deficits. 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 II-XII grossly intact Sensation grossly intact Normal strength throughout Course Vital Signs Vital signs: Vital Signs Temperature 38.6 C H 05/26/23 09:18 Pulse 105 H 05/26/23 09:18 Respiratory Rate 20 05/26/23 09:18 Blood Pressure 119/88 05/26/23 09:18 Pulse Oximetry 96 05/26/23 09:18 Temperature 38.6 C H 05/26/23 09:26 Temperature Source Oral 05/26/23 09:26 Pulse 105 H 05/26/23 09:26 Respiratory Rate 20 05/26/23 09:26 Blood Pressure 119/88 05/26/23 09:26 Blood Pressure Position Sitting 05/26/23 09:26 Pulse Oximetry 96 05/26/23 09:26 Oxygen Delivery Method Nasal Cannula 05/26/23 09:26 Oxygen Flow Rate 4 05/26/23 09:26 Pain Level 0 05/26/23 09:26 Lab/Test Results Lab/Test Results: 05/26/23 09:24 Blood Blood Culture - Pending 05/26/23 09:24 Blood Blood Culture - Pending Critical Care Time Critical Care Time Critical Care Time: Yes Total Critical Care Time: 35 Attestation: CRITICAL CARE Upon my evaluation, this patient had a high probability of imminent or life- threatening deterioration due to severe sepsis which required my direct attention, intervention, and personal management. I have personally provided 35 minutes of critical care time exclusive of time spent on separately billable procedures. Time includes review of laboratory data, radiology results, discussion with consultants, and monitoring for potential decompensation. Interventions were performed as documented above
[2023-05-26 09:58] LABS: BE (Venous) 0 mmol/L (-2-3); HCO3 (Venous) 24 mmol/L (23-28); O2 Sat (Venous) 43 %; TCO2 (Venous) 22 mmol/L (24-29); pCO2 (Venous) 39 mmHg (41-51); pO2 (Venous) 23 mmHg
[2023-05-26 10:02] LABS: Absolute Lymphocyte Count 0.23 10^3/uL (1.2-3.4); HCT 39.2 % (40.0-50.0); HGB 13.4 g/dL (13.5-17.5); Lactate 1.6 mmol/L (0.6-1.4); MCH 32.8 pg (27.0-33.0); MCHC 34.2 % (32.0-36.0); MCV 96 fL (80-95); RBC 4.08 10^6/uL (4.36-5.78); RDW 13.6 % (11.8-14.1); RDW-SD 48.3 fL; WBC 5.76 10^3/uL (4.4-10.8)
[2023-05-26] MEDS: CEFEPIME 1 GM in Normal Saline 50 ML IVPB ×2 (10:04→20:06)
[2023-05-26] MEDS: Acetaminophen 500 MG TAB 1000 MG PO (10:04)
[2023-05-26 10:11] LABS: Ammonia < 10 umol/L (11-32)
--- NOTE | 2023-05-26 10:15 | RT.EKG_ITS ---
APPROVED REPORT Exam: Resting ECG Reason for Exam: chest pain Patient Location: E HR:105 bpm ECG Measurements Heart Rate 105 AXIS [place] [id number] P [id number] QRSd 114 QRS -50 QT 402 T 71 QTc 532 Conclusion Atrial flutter rate 105 QTC increased from prior
[2023-05-26 10:21] LABS: ALT 108 U/L (16-63); AST 323 U/L (15-37); Albumin 3.6 g/dL (3.4-5.0); Alkaline Phosphatase 104 U/L (46-116); Anion Gap 12.6 mmol/L (3-11); BUN 54 mg/dL (7-18); Bilirubin, Total 1.1 mg/dL (0.2-1.0); CO2 23.4 mmol/L (21.0-32.0); CREATININE 2.6 mg/dL (0.70-1.30); Calcium 9.3 mg/dL (8.5-10.1); Chloride 95 mmol/L (98-107); Estimated GFR 24.17 (mL/min/1.73m2); Glucose 136 mg/dL (74-106); NT-proBNP 18042 pg/mL (<300); Potassium 3.3 mmol/L (3.5-5.1); Sodium 131 mmol/L (136-145); Total Protein 7.9 g/dL (6.4-8.2)
[2023-05-26 10:22] LABS: Troponin I 831 ng/L (<or=60)
[2023-05-26 10:23] LABS: COVID-19 PCR Negative (Negative); Influenza A PCR Negative (Negative); Influenza B PCR Negative (Negative); RSV PCR Negative (Negative)
[2023-05-26 10:31] LABS: Absolute Monocyte Count 0.17 10^3/uL (0.1-0.8); Absolute Neutrophil Count 5.36 10^3/uL (1.2-6.7); Bands % 10; Diff Comment Manual Differential; Platelet Count 93 10^3/uL (130-400); RBC Morphology Normal
[2023-05-26 10:36] LABS: Source Nasopharynx
[2023-05-26 10:36] LABS: Procalcitonin 3.1 ng/mL
--- NOTE | 2023-05-26 10:52 | W.PM.HP.N ---
Date of service: 05/26/23 Time of Service: 18:05 Assessment and Plan Assessment and plan (1) Cardiogenic shock: Status: Acute Assessment and plan: -Potentially due to myocarditis as noted below -POCUS somewhat limited, but was notable for enlarged IVC, no clear pericardial effusion, no regional wall motion abnormalities and a normal LVE -continue levophed with goal MAP >65 -s/p 20mg IV lasix with good UOP and improvement in MAP -continue to reassess for additional doses of lasix (2) Myocarditis: Status: Acute Assessment and plan: -meets criteria with sudden onset of cardiogenic shock without history of CHF symptoms of CT or EKG changes in additional to flu vaccine administration just prior to symptoms, elevated trop, pBNP, and cardiogenic shock as noted above -POCUS as noted above -discussed with Pulm/Crit Care: 500mg IV methylpred Q12hrs for 3 days and then taper -f/u tick panel, ANCA, FLOWER, and ds-DNA Qualifiers: Myocarditis type: unspecified Chronicity: acute Qualified Code(s): I40.9 - Acute myocarditis, unspecified (3) Elevated troponin: Status: Acute Assessment and plan: -without ischemia on EKG or complaints of chest pain -f/u repeat EKGs -started heparin infusion -continue to trend trops (4) Lxphv-ib-etyaolh kidney injury: Status: Acute Assessment and plan: -baseline Cr 1.8-2.1) 2.6 in ED -likely due to vascular congestion in the setting of cardiogenic shock/myocarditis as noted above -trend Cr/BUN -rangel to monitor I/O's Qualifiers: Acute renal failure type: unspecified Chronic kidney disease stage: stage 2 (mild) Qualified Code(s): N17.9 - Acute kidney failure, unspecified; N18.2 - Chronic kidney disease, stage 2 (mild) (5) Hypokalemia: Status: Acute Assessment and plan: -K 3.3 in ED -s/p replacement -monitor AM CMP (6) Elevated LFTs: Status: Acute Assessment and plan: -likely due to congestion from cardiogenic shock/myocarditis as noted above -f/u AM CMP (7) Acute encephalopathy: Status: Acute Assessment and plan: -due to cardiogenic shock/myocarditis as noted above -present on admission, but now resolved History of Present Illness History of Present Illness Chief Complaint: AMS Narrative: 82-year-old male with a past medical history of chronic A-fib on Eliquis beta-stephen, and hypertension who presents to the emergency department with altered mental status. Since having his flu shot 3 days ago the patient has been minimally ambulatory due to aches and pains and is really gotten up, has had poor p.o. intake and the patient's noted that he had a fever earlier in the day prior to arriving to the emergency department as well as confusion which prompted presenting to the ED. They deny any chest pain, lightheadedness, dizziness, cough, nausea, vomiting, diarrhea. In the emergency department the patient was noted to have temperature of 101.4 ?F, pulse of 105, initial blood pressure of 136/62 which declined and required initiation of Levophed prior to being transferred out of the emergency department, and oxygen requirement 4 L nasal cannula to maintain an oxygen saturation greater than 92%. Additionally, the patient appeared to be encephalopathic was only oriented to self. Chest x-ray showed no acute findings on official read however patient does appear to have some mild pulmonary vascular congestion. CBC showed a white blood cell count of 5.7, with a hemoglobin of 13.4, platelets of 93, CMP showed sodium of 141, potassium 3.3, BUN of 54, creatinine of 2.6 (baseline 1.8-2.1), T. bili of 1.1, and AST of 323, ALT 108, initial troponin was 831 which increased to 1161, CRP of 17.69 and a proBNP of over 18,000. Additionally, urinalysis was negative. However, while in the emergency department the patient received initial dose of vancomycin and cefepime. However, upon further evaluation and discussion with pulm/crit care physician Dr. Mix, patient appears to have cardiogenic shock with multiorgan failure (acute hypoxic respiratory failure, acute metabolic encephalopathy, elevated troponin, elevated LFTs and T. bili), presumed to be secondary to myocarditis. Which emergency physician paged hospitalist for admission to the intensive care unit. Review of Systems All systems reviewed & are unremarkable except as noted in HPI and below PFSH All Active Problems (Updated 05/26/23 @ 18:32 by Arnaldo Mensah MD) Jnwcp-pz-larnzii kidney injury (Acute) Acute encephalopathy (Acute) Elevated LFTs (Acute) Myocarditis (Acute) Cardiogenic shock (Acute) Altered mental state (Acute) Hematuria (Acute) Cardiogenic shock (Acute) Elevated troponin (Acute) Elevated LFTs (Acute) Acute kidney injury superimposed on CKD (Acute) Hypokalemia (Acute) Hyponatremia (Acute) Anemia (Chronic) Myocarditis (Acute) Severe sepsis (Acute) Heart failure (Acute) Multi-organ failure with heart failure (Acute) Acute hypoxic respiratory failure (Acute) Acute lumbar back pain (Acute) De Quervain's tenosynovitis, right (Acute) Osteoarthritis of left knee (Acute) Left knee pain (Acute) Pre-diabetes (Acute) CKD (chronic kidney disease) (Chronic) Venous insufficiency (Acute) Dupuytrens contracture (Chronic ~2016) Hypertension (Chronic) BPH (benign prostatic hyperplasia) (Chronic) Atrial fibrillation, chronic (Chronic ~03/02/21) eliquis began 03/02/21, stress test and echo 03/22/[address] Maldonado Renal insufficiency (Chronic) Dyslipidemia (Chronic) low HL Abdominal obesity and metabolic syndrome (Acute) HTN (hypertension) with goal to be determined (Acute) Medical History Tubular adenoma on colonoscopy 01/02/13, repeat 09/07/18 WNL Hyperkalemia Due to SEBASTIAN inhibitor Normal colonoscopy (09/07/18) 09/07/18 Dr Kurt Ying, [facility], normal, would be repeat in 10 years but due to age, repeat as needed. 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 Walko 01/02/13, 09/07/18 wnl Family History Mother Personal history of malignant neoplasm Father Asthma Social History Smoking/Tobacco Use Status: Never Smoking risk assessment performed?: Yes Alcohol Intake: never Drug use: Never Substance use type: does not use Counseling provided: none (Non Applicable) Adopted: No Caregiver/Support person: No Foster care: No Household members: spouse Housing: house Number of Children: 2 number of grandchildren: 3 Communication Needs: None Education Level: master's degree Do you need help understanding health information?: Never current occupation: Retired Pets and animals: No Sexually active: No Do you think of yourself as: straight/heterosexual Current gender identity: male What is your relationship status?: How often do you talk on the phone with friends or family?: twice per week How often do you get together with friends or relatives?: once per week Do you belong to any clubs or organized social groups?: no Panel score (0-1 are the most socially isolated patients): 2 What type of physical activity do you participate in: walking and other Details: working Duration: > 90 minutes/day Frequency: 5-6 times per week Gail/Taoist: Alevism Special gail needs: No Seatbelt use: sometimes Helmet use: No (Never) Drive intox or ride w/intox truck driver rubbish 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: No Do you feel safe at home: Yes Do you feel safe in your relationship?: Yes Meds Allergies and Home Medications Allergies Allergy/AdvReac Type Severity Reaction Status Date / Time lisinopril AdvReac Intermediate Verified 05/26/23 09:24 Home Medications Medication Instructions Recorded Confirmed Type atorvastatin 20 mg tablet 20 mg PO DAILY #90 tabs 11/10/22 05/26/23 Rx hydrochlorothiazide 25 mg tablet 25 mg PO DAILY #90 tabs 11/10/22 05/26/23 Rx losartan 50 mg tablet 50 mg PO DAILY #90 tabs 11/10/22 05/26/23 Rx metoprolol succinate 100 mg 100 mg PO DAILY #90 tabs 12/05/22 05/26/23 Rx tablet,extended release 24 hr apixaban 5 mg tablet (Eliquis) 5 mg PO DAILY 05/26/23 05/26/23 History Exam Narrative Exam Narrative: Fatigued appearing older gentleman laying in bed in no acute distress, oriented to person place and time, heart irregularly irregular, abdomen soft, nontender, nondistended, lungs CTAB, no peripheral edema Results Labs 05/26/23 09:50 05/26/23 09:50 Labs: Laboratory Results - last 24 hr 05/26/23 05/26/23 05/26/23 09:38 09:50 09:50 WBC 5.76 RBC 4.08 L Hgb 13.4 L Hct 39.2 L MCV 96 H MCH 32.8 MCHC 34.2 RDW 13.6 Plt Count 93 L MPV 11.0 Immature Gran % 0.0 Neutrophils % 83.0 Band Neutrophils % 10 Lymphocytes % 4.0 Monocytes % 3.0 Eosinophils % 0.0 Basophils % 0.0 Nucleated RBC % 0.0 Absolute Neutrophils 5.36 Absolute Lymphocytes 0.23 L Absolute Monocytes 0.17 Absolute Eosinophils 0.00 Absolute Basophils 0.00 RBC Morphology Normal VBG pH 7.40 VBG pCO2 39 L VBG pO2 23 VBG HCO3 24 VBG Total CO2 22 L VBG O2 Saturation 43 VBG Base Excess 0 VBG Lactate 1.6 H Sodium 131 L Potassium 3.3 L Chloride 95 L Carbon Dioxide 23.4 Anion Gap 12.6 H BUN 54 H Creatinine 2.6 H Est GFR (CKD-EPI 2020) 24.17 Glucose 136 H Calcium 9.3 Total Bilirubin 1.1 H AST 323 H ALT 108 H Alkaline Phosphatase 104 Ammonia < 10 L Troponin I 831 H* NT-Pro-B Natriuret Pep 84727 H Cancelled Total Protein 7.9 Albumin 3.6 Procalcitonin 3.1 COVID-19 Source Nasopharynx SARS-CoV-2 (PCR) Negative Influenza Type A (PCR) Negative Influenza Type B (PCR) Negative RSV (PCR) Negative Last Vital Signs Temp 101.4 F H 05/26/23 09:26 Pulse 109 H 05/26/23 10:33 Resp 32 H 05/26/23 10:33 BP 132/60 05/26/23 10:16 Pulse Ox 96 05/26/23 10:33 Time Spent Time spent with Patient: 55-74 minutes (60) Time was spent: preparing to see the patient(eg.review tests), obtaining and/or reviewing separately otained hiistory, ordering medications,tests, procedures, referring, communicating with other health children's zoo caretaker, indepentently interpreting results, counseling the patient and care coordination
[2023-05-26] MEDS: VANCOMYCIN/WATER (PEG) 2 GM/400 ML BAG IVPB ×2 (11:03→13:21)
[2023-05-26 11:15] LABS: Bilirubin Negative (Negative); Blood Large (Negative); Clarity Cloudy (Clear); Glucose Negative (Negative); Ketones Negative (Negative); Leukocyte Esterase Negative (Negative); Nitrite Negative (Negative); Specific Gravity 1.025 (1.005-1.025); Urobilinogen 0.2 mg/dL (Up to 0.2)
[2023-05-26 11:23] LABS: Bacteria Negative HPF (Negative); C & S Indicated? No; Casts >50 Fine Granular LPF (Negative); Crystals Many Amorphous HPF (Negative); Epithelial Cells Rare HPF (Negative); Mucus Negative (Negative); RBC 20-50 HPF (0-2); WBC Negative HPF (0-5)
[2023-05-26] MEDS: Norepinephrine in D5W 8 MG/250 ML BAG 9.375 MG IV (11:38)
[2023-05-26] MEDS: MAGNESIUM SULFATE 2 GM/50 ML BAG IVPB (11:53)
[2023-05-26 12:57] LABS: Lactate 1.4 mmol/L (0.6-1.4)
--- NOTE | 2023-05-26 13:00 | RT.EKG_ITS ---
APPROVED REPORT Exam: Resting ECG Reason for Exam: elevated trop Patient Location: I HR:74 bpm ECG Measurements Heart Rate 74 AXIS [place] [id number] P [id number] QRSd 109 QRS -45 QT 431 T 41 QTc 479 Conclusion Atrial flutter...A-rate 258 Abnormal R-wave progression, late transition...QRS area<0 in V5/V6 Left anterior fascicular block
[2023-05-26 13:19] LABS: Troponin I 1161 ng/L (<or=60)
[2023-05-26 13:33] LABS: Lab Add On Test DONE
[2023-05-26 13:44] LABS: C-Reactive Protein 17.69 mg/dL (0.0-0.3)
[2023-05-26] MEDS: Furosemide 20 MG/2 ML VIAL IVP ×2 (14:14→22:27)
[2023-05-26] MEDS: Normal Saline Flush 10 ML SYR IVP ×2 (14:15→17:19)
[2023-05-26] MEDS: Lidocaine 2% Jelly 6 ML SYR (14:15)
--- NOTE | 2023-05-26 14:31 | W.PULMCC ---
General Date of Service Date of service: 05/26/23 Time of Service: 14:31 Reason for Admission to ICU: Hypotension NSTEMI Assessment and Plan Assessment and plan (1) Myocarditis: Status: Acute (2) Multi-organ failure with heart failure: Status: Acute (3) Acute hypoxic respiratory failure: Status: Acute (4) Severe sepsis: Status: Acute (5) Anemia: Status: Chronic (6) Altered mental state: Status: Acute (7) Hyponatremia: Status: Acute (8) Hypokalemia: Status: Acute (9) Acute kidney injury superimposed on CKD: Status: Acute (10) Elevated LFTs: Status: Acute (11) Elevated troponin: Status: Acute (12) Cardiogenic shock: Status: Acute (13) Hematuria: Status: Acute Assessment and plan: This is a 82 yo man with a history of hypertension and A. fib on Eliquis who present with acute onset weakness after receiving the influenza shot. I believe his most likely diagnosis at this time and with the information available is cardiogenic shock, possibly due to a myocarditis. There is always the possibility for infection so would complete a C/A/P CT scan with contract (despite Cr) to assess this more fully. His POCUS exam was limited due to body habitus, but I feel confident about the enlarged and plethoric IVC. No clear signs of a pericardial effusion and, at this time, think his LVEF is likely close to normal. I would treat him as cardiogenic shock with diuresis as able, Levophed as needed for MAP 65mmHg or greater and supportive care. We discussed a central line, however his Levophed was at 7 and his MAP was 80, so recommended we wait and this may be avoided if the pressor can be weaned off - him and his agreed after a thorough discussion of possible risks associated with this plan. I recommended treating for myocarditis - 500mg IV methylpred for 6 doses with a wean from there. I will also order some labs that may elucidate causes of the potential myocarditis. Recommendations Pulmonary: Hypoxic respiratory failure - supplemental O2 for sats >90% - IS Cardiac: Cardiogenic Shock - Levophed for MAP 65mmHg - if unable to wean this significant recommend central line placement and consider arterial line placement - if unable to wean Levophed can also consider adding dobutamine - strict I/Os - prn Lasix as able to tolerate ?Myocarditis - 500mg IV methylpred for 6 doses, then a wean - tick panel, ANCA, FLOWER, ds-DNA Elevated troponin - no clear ischemia on EKG - recommend EKG's with repeat troponins to assess for dynamic changes - agree with hepain infusion Renal: RYLAND on CKD - likely congestive - will monitor Hematuria - CT as mentioned below Electrolytes - K goal of 4 - Mg goal of 2 I&O: Intake & Output 05/23/23 05/24/23 05/25/23 05/26/23 23:59 23:59 23:59 23:59 Intake Total 104.375 / 104.375 Output Total 150 / 150 Balance -45.625 / -45.625 Weight 123 kg Daily Fluid Goal:: even to negative if tolerates GI Nutrition: OK for diet Elevated LFT's - likely congestive, monitor Infectious Disease: Possible sepsis - elevated procal - on vanc and cefepime - MRSA nares - if negative can D/C vanc - recommend CT A/A/P with contrast Hematologic: Anemia - chronic - monitor Neurologic: AMS - likely due to hypotension/shock state - ammonia negative Lines: PIV Coates Prophylaxis: heparin infusion Code Status: Resuscitation Status Full Code Subjective Critical and life-threatening events over the past 24 hours: This is an 82 yo admitted to the ICU for hypotension. He got his flu shot a couple days ago and presented with altered mental status to the ED. He was found to be hypotensive and so was placed on Levophed. EKG non ischemic with A. fib. CXR shows vascular prominence with interstitial markings and cardiomegaly. He has significant troponin and bnp elevations. His CRp was also found to be high. In discussing with the patient, he was feeling completely himself until the influenza vaccine. He denies any weight gain over the past weeks to months. States he always eats too much salt but no significant dietary changes. He came to the ED for severe weakness. He was unable to even get up from a chair and later became confused. He is conversing appropriately with me. He denies chest pain, or pain in general. No dyspnea, although is on oxygen, which he typically is not. He simply feels weak. His family provides further history that he has also been incontinent as of the last couple of days which is atypical of him. He states he does not have nor has ever held a heart failure diagnosis. He has a prior echo from 2020 that note an EF of 45-50%, RVSP of 30mmHg and a collapsible IVC. Exam Narrative Exam Narrative: Gen: NAD, normal respiratory effort, well-nourished HENT: PERRL, +JVD Chest: No respiratory distress, normal appearance of chest, clear to auscultation bilaterally but diminished due to habitus, no crackles or wheezes, normal inspiratory effort Heart: regular rate and irregular rhythym, no murmurs, rubs or gallops Abdomen: Non-distended, soft, non tender Extremities: No clubbing, edema, cyanosis, rashes Neuro: non focal, 5+ strength with foot press bilaterally, 4+ strength with bilateral leg raise Psych: cooperative, appropriate mental affect Most Recent VS/Results Last Vital Signs Temp 36.0 C L 05/26/23 12:58 Pulse 62 05/26/23 14:16 Resp 26 H 05/26/23 14:16 BP 104/66 05/26/23 14:16 Pulse Ox 95 05/26/23 14:16 Laboratory Results - last 24 hr 05/26/23 05/26/23 05/26/23 09:38 09:50 09:50 WBC 5.76 RBC 4.08 L Hgb 13.4 L Hct 39.2 L MCV 96 H MCH 32.8 MCHC 34.2 RDW 13.6 Plt Count 93 L MPV 11.0 Immature Gran % 0.0 Neutrophils % 83.0 Band Neutrophils % 10 Lymphocytes % 4.0 Monocytes % 3.0 Eosinophils % 0.0 Basophils % 0.0 Nucleated RBC % 0.0 Absolute Neutrophils 5.36 Absolute Lymphocytes 0.23 L Absolute Monocytes 0.17 Absolute Eosinophils 0.00 Absolute Basophils 0.00 RBC Morphology Normal VBG pH 7.40 VBG pCO2 39 L VBG pO2 23 VBG HCO3 24 VBG Total CO2 22 L VBG O2 Saturation 43 VBG Base Excess 0 VBG Lactate 1.6 H Sodium 131 L Potassium 3.3 L Chloride 95 L Carbon Dioxide 23.4 Anion Gap 12.6 H BUN 54 H Creatinine 2.6 H Est GFR (CKD-EPI 2020) 24.17 Glucose 136 H Calcium 9.3 Total Bilirubin 1.1 H AST 323 H ALT 108 H Alkaline Phosphatase 104 Ammonia < 10 L Troponin I 831 H* C-Reactive Protein NT-Pro-B Natriuret Pep 29704 H Cancelled Total Protein 7.9 Albumin 3.6 Procalcitonin 3.1 Urine Color Urine Clarity Urine pH Ur Specific [place] Urine Protein Urine Ketones Urine Blood Urine Nitrite Urine Bilirubin Urine Urobilinogen Ur Leukocyte Esterase Urine RBC Urine WBC Ur Epithelial Cells Urine Crystals Urine Bacteria Urine Casts Urine Mucus Ur Culture Indicated? Urine Glucose COVID-19 Source Nasopharynx SARS-CoV-2 (PCR) Negative Influenza Type A (PCR) Negative Influenza Type B (PCR) Negative RSV (PCR) Negative Add-On Test Request 05/26/23 05/26/23 05/26/23 10:43 12:50 16:49 WBC RBC Hgb Hct MCV MCH MCHC RDW Plt Count MPV Immature Gran % Neutrophils % Band Neutrophils % Lymphocytes % Monocytes % Eosinophils % Basophils % Nucleated RBC % Absolute Neutrophils Absolute Lymphocytes Absolute Monocytes Absolute Eosinophils Absolute Basophils RBC Morphology VBG pH VBG pCO2 VBG pO2 VBG HCO3 VBG Total CO2 VBG O2 Saturation VBG Base Excess VBG Lactate 1.4 Cancelled Sodium Potassium Chloride Carbon Dioxide Anion Gap BUN Creatinine Est GFR (CKD-EPI 2020) Glucose Calcium Total Bilirubin AST ALT Alkaline Phosphatase Ammonia Troponin I 1161 H* C-Reactive Protein 17.69 H NT-Pro-B Natriuret Pep Total Protein Albumin Procalcitonin Urine Color Yellow Urine Clarity Cloudy Urine pH 5.0 Ur Specific [place] 1.025 Urine Protein 100 H Urine Ketones Negative Urine Blood Large H Urine Nitrite Negative Urine Bilirubin Negative Urine Urobilinogen 0.2 Ur Leukocyte Esterase Negative Urine RBC 20-50 H Urine WBC Negative Ur Epithelial Cells Rare Urine Crystals Many Amorphous Urine Bacteria Negative Urine Casts >50 Fine Granular Urine Mucus Negative Ur Culture Indicated? No Urine Glucose Negative COVID-19 Source SARS-CoV-2 (PCR) Influenza Type A (PCR) Influenza Type B (PCR) RSV (PCR) Add-On Test Request 05/26/23 Unknown WBC RBC Hgb Hct MCV MCH MCHC RDW Plt Count MPV Immature Gran % Neutrophils % Band Neutrophils % Lymphocytes % Monocytes % Eosinophils % Basophils % Nucleated RBC % Absolute Neutrophils Absolute Lymphocytes Absolute Monocytes Absolute Eosinophils Absolute Basophils RBC Morphology VBG pH VBG pCO2 VBG pO2 VBG HCO3 VBG Total CO2 VBG O2 Saturation VBG Base Excess VBG Lactate Sodium Potassium Chloride Carbon Dioxide Anion Gap BUN Creatinine Est GFR (CKD-EPI 2020) Glucose Calcium Total Bilirubin AST ALT Alkaline Phosphatase Ammonia Troponin I C-Reactive Protein NT-Pro-B Natriuret Pep Total Protein Albumin Procalcitonin Urine Color Urine Clarity Urine pH Ur Specific [place] Urine Protein Urine Ketones Urine Blood Urine Nitrite Urine Bilirubin Urine Urobilinogen Ur Leukocyte Esterase Urine RBC Urine WBC Ur Epithelial Cells Urine Crystals Urine Bacteria Urine Casts Urine Mucus Ur Culture Indicated? Urine Glucose COVID-19 Source SARS-CoV-2 (PCR) Influenza Type A (PCR) Influenza Type B (PCR) RSV (PCR) Add-On Test Request DONE Review of Systems All systems reviewed & are unremarkable except as noted in HPI and below Time spent with patient Time spent in Critical Care: 80 Time spent in Critical care included: Chart review, Documenting critically ill care, Time at immediate bedside, Discussing critically ill care with other medical staff and Discussing care with family members Pocus Exam Limited Cardiac Exam DATE OF EXAM: 05/26/23 TIME OF EXAM: 15:45 PROVIDER THAT PERFORMED THE STUDY: Katerina Mix IS THIS A REPEAT EXAM DURING THIS ENCOUNTER: no REASON FOR EXAM: Hypotension VISUALIZED STRUCTURES: four chambers, LVOT, aortic valve, Interventricular septum and IVC VIEW OBTAINED: Apical 4-Chamber, Parasternal long-axis, Parasternal short-axis and Subxiphoid PERTINENT FINDINGS/IMPRESSION: Plethoric IVC; No LV dysfunction, No pericardial effusion and No RV dysfunction Exam complete Limited Thoracic Lung Exam DATE OF EXAM: 05/26/23 TIME OF EXAM: 15:45 PROVIDER THAT PERFORMED THE STUDY: Katerina Mix IS THIS A REPEAT EXAM DURING THIS ENCOUNTER: No REASON FOR EXAM: Hypoxia VISUALIZED STRUCTURES: right anterior and left anterior PERTINENT FINDINGS/IMPRESSION: B-lines/left side thoracis location: anterior and B-lines/right side thoracis location: anterior Exam complete
[2023-05-26 15:05] LABS: PTT Activated 38.3 sec (23.6-32.8)
[2023-05-26 16:23] LABS: Lab Add On Test DONE
[2023-05-26] MEDS: Heparin in 0.45% NaCl 25,000 UNIT/250 ML BAG 10 UNIT IV (16:30)
[2023-05-26] MEDS: Omnipaque 350 MG/ML 100 ML BTL IJ (16:30)
--- NOTE | 2023-05-26 16:53 | DI.CT_ITS ---
Exam(s) CT CHEST/ABD/PEL W EXAM: CT CHEST/ABD/PEL W CLINICAL HISTORY: septic vs cardiogenic shock without source TECHNIQUE: Imaging Protocol: Axial computed tomography images with coronal and sagittal reformatted images were created and reviewed CONTRAST MATERIAL: Intravenous: Omnipaque 350 contrast volume:100 mL Oral: No COMPARISON: CT RENAL COLIC WO CONTRAST from 02/23/2017 CT,NM,TMT NM MPI REST STRESS GRP from 03/22/2021 FINDINGS: The examination is limited due to patient motion artifact. CHEST: Tracheobronchial tree: Patent where visualized. Pulmonary parenchyma: No consolidation or dominant measurable mass. No architectural distortion. Visualized thyroid gland: Unremarkable. Mediastinum and Loan: No dominant adenopathy or fluid collection. The esophagus is unremarkable. Pleura: No effusion or pneumothorax. Heart: Mild cardiomegaly. Coronary artery calcifications. No pericardial effusion. Pulmonary arteries: No central pulmonary embolus. Due to the timing of the bolus, the segmental and subsegmental pulmonary arteries are not adequately opacified for evaluation of pulmonary emboli. Aorta: Thoracic aorta non-dilated. Atherosclerosis. Lymph nodes: Within normal limits. Soft tissues: Unremarkable. Bones:Within normal limits for the patient's age. ABDOMEN: Liver: Normal density. No measurable mass. Portal, Superior Mesenteric, and Splenic Veins: Unremarkable. Gallbladder and Biliary Tract: No radiodense calculus or dilation. Pancreas: Mild fatty infiltration of the pancreas. No abnormal calcification or mass is seen. No pe ripancreatic inflammatory process is seen. Spleen: Normal. Adrenals: No masses seen. Kidneys: Normal size, contour and axis. No radiodense stones or obstructive uropathy. Bilateral simpl e renal cysts. No follow-up is recommended. Abdominal Aorta: Abdominal portion non-dilated. Atherosclerosis. Bowel: No obstruction or bowel wall thickening. No evidence of appendicitis. No pneumatosis. Peritoneal Cavity: No ascites, collection or mesenteric inflammatory response. No free air. Lymph Nodes: Within normal limits. Bones: Within normal limits for the patient's age. Soft Tissues: Unremarkable. PELVIS: Bladder: Bladder diverticula are present. There is a Coates catheter in place. The urinary bladder i s not well distended. Reproductive Organs: Prostate gland is enlarged. Lymph Nodes: Within normal limits. Bones: Within normal limits. IMPRESSION: 1. Examination limited by patient motion artifact 2. No pulmonary infiltrates. 3. No acute abdominal or pelvic process. 4. Coates catheter in place. The urinary bladder diverticula are present. 5. Enlarged prostate gland. RADIATION DOSE DELIVERED: Total DLP DATA REPOSITORY: All CT scans at this facility are submitted to the National Radiology Data Registry (NRDR) Dose Index Registry (DIR) with the [employer] (ACR). RADIATION OPTIMIZATION: All CT scans at this facility use at least one of these dose optimization te chniques: automated exposure control; mA and/or kV adjustment per patient size (includes targeted exa ms where dose is matched to clinical indication); or iterative reconstruction.
[2023-05-26] MEDS: Normal Saline - Diluent 50 ML VIAL IJ (17:04)
[2023-05-26] MEDS: methylPREDNISolone SUCC 500 MG in Normal Saline 100 ML 200 MG IVPB (17:20)
[2023-05-26] MEDS: Acetaminophen 325 MG TAB PO (17:44)
[2023-05-26 20:48] LABS: MRSA PCR Negative (Negative)
[2023-05-26 22:36] LABS: PTT Activated 62.8 sec (23.6-32.8)
[2023-05-26 22:42] LABS: Troponin I 978 ng/L (<or=60)
[2023-05-27] VITALS (67 sets, daily range): BP systolic 80–121; BP diastolic 33–79; PULSE 68–105; RESP 16–36; TEMP 35.6–38.3; O2SAT 89–96
--- NOTE | 2023-05-27 | DI.CT_ITS ---
Exam(s) CT HEAD WO EXAM: CT HEAD WO CLINICAL HISTORY: altered mental status. TECHNIQUE: Imaging Protocol: Axial computed tomography images with coronal and sagittal reformatted images were created and reviewed COMPARISON: No exams were available for comparison FINDINGS: Ventricles and Extra axial spaces: Normal in size and morphology for the patient's age. Hemorrhage: None. 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 There are areas of decreased attenuati on in the white matter most consistent with small vessel ischemic disease. There is no mass effect o r midline shift. Midline shift: None. Brainstem/Cerebellum: Normal. Calvarium: Normal. Visualized Paranasal sinuses/Mastoids: Clear. Soft Tissues: Unremarkable. IMPRESSION: No acute intracranial process. RADIATION DOSE DELIVERED: Total DLP DATA REPOSITORY: All CT scans at this facility are submitted to the National Radiology Data Registry (NRDR) Dose Index Registry (DIR) with the [employer] (ACR). RADIATION OPTIMIZATION: All CT scans at this facility use at least one of these dose optimization te chniques: automated exposure control; mA and/or kV adjustment per patient size (includes targeted exa ms where dose is matched to clinical indication); or iterative reconstruction.
[2023-05-27 01:23] LABS: Adenovirus DNA Result Negative (Negative); Metapneumovirus RNA Result Negative (Negative); Parainfluenza Type1 RNA Result Negative (Negative); Parainfluenza Type2 RNA Result Negative (Negative); Parainfluenza Type3 RNA Result Negative (Negative); Parainfluenza Type4 RNA Result Negative (Negative); Rhinovirus RNA Result Negative (Negative)
[2023-05-27] MEDS: Normal Saline Flush 10 ML SYR IVP ×5 (01:45→15:32)
[2023-05-27] MEDS: methylPREDNISolone SUCC 500 MG in Normal Saline 100 ML 200 MG IVPB ×2 (03:42→15:32)
--- NOTE | 2023-05-27 04:40 | NUR.NOTE ---
Nursing Note: Patient received second bag of 6 ordered of Methylprednisolone IV over 30 minutes. Patient did not have diaphoretic response to and currently skin is cool and dry. Offered to get OOB and freshen linens and patient declined at this time.
[2023-05-27 06:47] LABS: HGB 12.4 g/dL (13.5-17.5); MCHC 33.5 % (32.0-36.0); MCV 96 fL (80-95); MPV 11.8 fL (8.0-11.0); RBC 3.87 10^6/uL (4.36-5.78); RDW 14.2 % (11.8-14.1); RDW-SD 49.8 fL; WBC 4.27 10^3/uL (4.4-10.8)
[2023-05-27 07:09] LABS: Platelet Count 80 10^3/uL (130-400)
[2023-05-27 07:10] LABS: ALT 113 U/L (16-63); AST 305 U/L (15-37); Alkaline Phosphatase 90 U/L (46-116); BUN 68 mg/dL (7-18); Bilirubin, Total 0.9 mg/dL (0.2-1.0); CREATININE 3.3 mg/dL (0.70-1.30); Calcium 8.8 mg/dL (8.5-10.1); Chloride 98 mmol/L (98-107); Estimated GFR 18.16 (mL/min/1.73m2); Glucose 166 mg/dL (74-106); Potassium 3.5 mmol/L (3.5-5.1); Sodium 135 mmol/L (136-145); TSH 0.57 uIU/mL (0.36-3.74); Total Protein 7.2 g/dL (6.4-8.2); Vancomycin, Random 26.9 ug/mL
[2023-05-27 08:18] LABS: Lab Add On Test DONE
--- NOTE | 2023-05-27 08:30 | RT.EKG_ITS ---
APPROVED REPORT Exam: Resting ECG Reason for Exam: NSTEMI Patient Location: I HR:83 bpm ECG Measurements Heart Rate 83 AXIS AR [id number] P [id number] QRSd 106 QRS -44 QT 420 T 34 QTc 494 Conclusion Atrial fibrillation...V-rate 67- 95, irreg A-activity Abnormal R-wave progression, late transition...QRS area<0 in V5/V6 Left anterior fascicular block
[2023-05-27 08:37] LABS: Lactate 1.8 mmol/L (0.6-1.4)
[2023-05-27] MEDS: CEFEPIME 1 GM in Normal Saline 50 ML IVPB ×2 (08:43→20:38)
--- NOTE | 2023-05-27 08:44 | PDOC.CMIN ---
Date of service: 05/27/23 Time of Service: 08:47 Care Management Initial Assmt Initial Assessment REASON FOR HOSPITALIZATION:: Sepsis w/o source PREVIOUS FUNCTIONAL STATUS/SOCIAL/FAMILY SUPPORTS:: Resides in [place] with Katina CURRENT FUNCTIONAL STATUS:: In ICU, no longer confused, reports feeling better today. ADVANCE DIRECTIVES:: None on file. Has patient been provided with info about the portal/API?: No Did the patient sign up for the portal?: No CODE STATUS:: Full Code INSURANCE COVERAGE / FINANCIAL ISSUES:: [facility] PRIMARY CARE PHYSICIAN:: Joe Butt POTENTIAL DISCHARGE NEEDS:: ECHO PATIENT/FAMILY EDUCATION NEEDS:: Review treatment plan, recommendations, discharge instructions, discuss Ask Me Three. ANTICIPATED BARRIERS TO DISCHARGE:: None identified. TRANSPORTATION:: Dependent on disposition. PLAN:: Awaiting further workup, CM continues to follow. PFSH All Active Problems (Updated 05/26/23 @ 18:32 by Arnaldo Mensah MD) [id number] kidney injury (Acute) Acute encephalopathy (Acute) Elevated LFTs (Acute) Myocarditis (Acute) Cardiogenic shock (Acute) Altered mental state (Acute) Hematuria (Acute) Cardiogenic shock (Acute) Elevated troponin (Acute) Elevated LFTs (Acute) Acute kidney injury superimposed on CKD (Acute) Hypokalemia (Acute) Hyponatremia (Acute) Anemia (Chronic) Myocarditis (Acute) Severe sepsis (Acute) Heart failure (Acute) Multi-organ failure with heart failure (Acute) Acute hypoxic respiratory failure (Acute) Acute lumbar back pain (Acute) De Quervain's tenosynovitis, right (Acute) Osteoarthritis of left knee (Acute) Left knee pain (Acute) Pre-diabetes (Acute) CKD (chronic kidney disease) (Chronic) Venous insufficiency (Acute) Dupuytrens contracture (Chronic ~2017) Hypertension (Chronic) BPH (benign prostatic hyperplasia) (Chronic) Atrial fibrillation, chronic (Chronic ~03/02/21) eliquis began 03/02/21, stress test and echo 03/22/[address] Maldonado Renal insufficiency (Chronic) Dyslipidemia (Chronic) low HL Abdominal obesity and metabolic syndrome (Acute) HTN (hypertension) with goal to be determined (Acute) Medical History Tubular adenoma on colonoscopy 01/02/13, repeat 09/07/18 WNL Hyperkalemia Due to SEBASTIAN inhibitor Normal colonoscopy (09/07/18) 09/07/18 Dr Kurt Ying, [facility], normal, would be repeat in 10 years but due to age, repeat as needed. 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 Walko 01/02/13, 09/07/18 wnl Family History Mother Personal history of malignant neoplasm Father Asthma Social History Smoking/Tobacco Use Status: Never Smoking risk assessment performed?: Yes Alcohol Intake: never Drug use: Never Substance use type: does not use Counseling provided: none (Non Applicable) Adopted: No Caregiver/Support person: No Foster care: No Household members: spouse Housing: house Number of Children: 2 number of grandchildren: 3 Communication Needs: None Education Level: master's degree Do you need help understanding health information?: Never current occupation: Retired Pets and animals: No Sexually active: No Do you think of yourself as: straight/heterosexual Current gender identity: male What is your relationship status?: How often do you talk on the phone with friends or family?: twice per week How often do you get together with friends or relatives?: once per week Do you belong to any clubs or organized social groups?: no Panel score (0-1 are the most socially isolated patients): 2 What type of physical activity do you participate in: walking and other Details: working Duration: > 90 minutes/day Frequency: 5-6 times per week Gail/Amish: Synagogue Special gail needs: No Seatbelt use: sometimes Helmet use: No (Never) Drive intox or ride w/intox speedboat driver: No Do you feel safe at home: Yes Do you feel safe in your relationship?: Yes
[2023-05-27 08:50] LABS: Creatine Kinase 6528 U/L (39-308)
[2023-05-27 08:57] LABS: PTT Activated 67.2 sec (23.6-32.8)
--- NOTE | 2023-05-27 10:13 | DI.VRAD_ITS ---
PROCEDURE INFORMATION: Exam: CT Head Without Contrast Exam date and time: 05/27/2023 9:49 AM Age: 82 years old Clinical indication: Other: AMS TECHNIQUE: Imaging protocol: Computed tomography of the head without contrast. Radiation optimization: All CT scans at this facility use at least one of these dose optimization techniques: automated exposure control; mA and/or kV adjustment per patient size (includes targeted exams where dose is matched to clinical indication); or iterative reconstruction. COMPARISON: No relevant prior studies available. FINDINGS: Brain: Mild cortical atrophy with commensurate prominence of the extra-axial spaces. Periventricular white matter hypodensities, consistent with chronic small vessel ischemic changes. No mass effect. No midline shift. No acute intracranial hemorrhage. Cerebral ventricles: No ventriculomegaly. Paranasal sinuses: Visualized sinuses are unremarkable. No fluid levels. Mastoid air cells: Visualized mastoid air cells are well aerated. Bones/joints: Unremarkable. No acute fracture. Soft tissues: Unremarkable. IMPRESSION: 1. No evidence of an acute intracranial process. 2. Chronic small vessel ischemic changes. Dictated and Authenticated by: Kvng Haley MD. Ordering:LALY Morelos MD
[2023-05-27] MEDS: Lactated Ringers 1,000 ML 100 ML IV ×2 (10:32→22:37)
[2023-05-27 12:14] LABS: HCT 37.6 % (40.0-50.0); HGB 12.8 g/dL (13.5-17.5)
[2023-05-27] MEDS: Heparin in 0.45% NaCl 25,000 UNIT/250 ML BAG 10 UNIT IV (12:25)
--- NOTE | 2023-05-27 13:11 | W.PM.PROGNOT ---
Date of Service Date of service: 05/27/23 Time of Service: 09:30 Assessment and Plan Assessment and plan (1) Septic shock: Status: Acute Assessment and plan: Source unclear. Blood cultures are negative. Off of pressors, doing better. Did have an elevated procalcitonin, suggesting there is a bacterial source. Will continue empiric vancomycin, cefepime. On steroids. Trend procalcitonin. (2) Cardiogenic shock: Status: Acute Assessment and plan: Await formal echocardiogram. This is suspected due to hypoxic respiratory failure, plethoric IVC, clinical evidence of fluid overload, as well as elevated troponin. Ddx: septic cardiomyopathy vs myocarditis vs a primary ACS. Continue heparin gtt. Add asa. Holding statin in light of rhabdomyolysis. (3) Rhabdomyolysis: Status: Acute Assessment and plan: In setting of a recent influenza vaccine, statin therapy. Awaiting tick studies as well. Does have evidence of RYLAND on CKD. Trend CPK. Hold statin. Treat with IVF + furosemide. (4) Multi-organ failure with heart failure: Status: Acute Assessment and plan: Encephalopathy, CHF, respiratory failure, RYLAND on CKD, transaminitis. Could be due to septic or cardiogenic shock. (5) Acute encephalopathy: Status: Resolved Assessment and plan: Mental status has normalized. CT head negative. (6) Elevated troponin: Status: Acute Assessment and plan: DDx: NSTEMI (type 1 vs type 2), rhyabdomyolysis, myocarditis. Await a formal echocardiogram read. Add asa to heparin gtt. Monitor for blood in stool. (7) Acute hypoxic respiratory failure: Status: Acute Assessment and plan: Much improved. Etiology: likely pulmonary edema. Continue to diurese as we are hydrating for treatment of rhabdomyolysis. (8) Myocarditis: Status: Suspected Assessment and plan: As a consequence (9) Acute kidney injury superimposed on CKD: Status: Acute Assessment and plan: In setting of rhabdomyolysis, shock. Obtain FeUrea (10) Anemia: Status: Chronic Assessment and plan: Is heme positive, but the amount of bleeding and its appearance suggest a hemorrhoidal source. Continue to monitor. Would not stop anticoagulation at this time. (11) Hyponatremia: Status: Acute Assessment and plan: Improving. MOnitor with hydration + diuresis. (12) Hypokalemia: Status: Resolved Assessment and plan: Recheck in am (13) Elevated LFTs: Status: Acute Assessment and plan: In setting of shock but also rhabdomyolysis. D/c statin. Treat rhabdo. CT w/ normal density and no measurable mass. Gallbladder w/o calculus or dilation. (14) Hematuria: Status: Acute Assessment and plan: Suspect traumatic insertion. Clinically this is better. Montior. (15) Atrial fibrillation, chronic: Status: Chronic Assessment and plan: Rate controlled. Currently on anticoagulation with heparin gtt. Continue cardiac monitoring. (16) DVT prophylaxis: Status: Acute Assessment and plan: On heparin gtt (17) Discharge planning issues: Status: Acute Assessment and plan: Full code C/s PT. Keep in the ICU. Total Critical Care Time 35 minutes. Subjective Subjective Interval history since last seen: Mr Rivera states he is feeling well today. He did feel a little unsteady when changing positions from sitting to standing. Denied headache, neck pain, chest pain, shortness of breath, nausea. Denies confusion. Nursing did bring up to me that, perhaps, the confusion and some of the symptoms started prior to the influenza vaccine. Off of vasopressors since 2 am. Does not have a central line. UOP 600 cc overnight. Nursing report one tiny BM with red blood on the surface (the patient is on a heparin gtt). Was on 1 L of O2 overnight. This am, was saturating 90% on RA, so 1 L of O2 was replaced. States he has had no recent dental work. Exam Narrative Exam Narrative: General: Pleasant elderly male who is sitting up in a chair, A&Ox3, appears comfortable HEENT: EOMI, MMM, several broken teeth - mandible Heart: irregularly irregular, no m/r/g Lungs: faint crackles at B bases, clear with deep breathing Abdomen: soft, nontender, nondistended Extremities: trace edema BLEs Objective Last Vital Signs Temp 37.0 C 05/27/23 10:39 Pulse 99 H 05/27/23 10:01 Resp 24 05/27/23 10:01 BP 120/68 05/27/23 10:01 Pulse Ox 90 L 05/27/23 08:37 Laboratory Results - last 24 hr 05/26/23 05/26/23 05/26/23 12:50 14:45 16:22 WBC RBC Hgb Hct MCV MCH MCHC RDW Plt Count MPV APTT 38.3 H VBG Lactate 1.0 Sodium Potassium Chloride Carbon Dioxide Anion Gap BUN Creatinine Est GFR (CKD-EPI 2020) Glucose Calcium Magnesium 2.0 Total Bilirubin AST ALT Alkaline Phosphatase Creatine Kinase Troponin I 1161 H* C-Reactive Protein 17.69 H Total Protein Albumin TSH Random Vancomycin MRSA (TEM-PCR) Add-On Test Request DONE 05/26/23 05/26/23 05/26/23 19:15 22:10 Unknown WBC RBC Hgb Hct MCV MCH MCHC RDW Plt Count MPV APTT 62.8 H VBG Lactate Sodium Potassium Chloride Carbon Dioxide Anion Gap BUN Creatinine Est GFR (CKD-EPI 2020) Glucose Calcium Magnesium Total Bilirubin AST ALT Alkaline Phosphatase Creatine Kinase Troponin I 978 H* C-Reactive Protein Total Protein Albumin TSH Random Vancomycin MRSA (TEM-PCR) Negative Add-On Test Request DONE 05/27/23 05/27/23 05/27/23 05:56 08:30 12:00 WBC 4.27 L RBC 3.87 L Hgb 12.4 L 12.8 L Hct 37.0 L 37.6 L MCV 96 H MCH 32.0 MCHC 33.5 RDW 14.2 H Plt Count 80 L MPV 11.8 H APTT 67.2 H VBG Lactate 1.8 H Sodium 135 L Potassium 3.5 Chloride 98 Carbon Dioxide 20.0 L Anion Gap 17.0 H BUN 68 H Creatinine 3.3 H Est GFR (CKD-EPI 2020) 18.16 Glucose 166 H Calcium 8.8 Magnesium Total Bilirubin 0.9 AST 305 H ALT 113 H Alkaline Phosphatase 90 Creatine Kinase 6528 H Troponin I C-Reactive Protein Total Protein 7.2 Albumin 3.0 L TSH 0.57 Random Vancomycin 26.9 MRSA (TEM-PCR) Add-On Test Request 05/27/23 Unknown WBC RBC Hgb Hct MCV MCH MCHC RDW Plt Count MPV APTT VBG Lactate Sodium Potassium Chloride Carbon Dioxide Anion Gap BUN Creatinine Est GFR (CKD-EPI 2020) Glucose Calcium Magnesium Total Bilirubin AST ALT Alkaline Phosphatase Creatine Kinase Troponin I C-Reactive Protein Total Protein Albumin TSH Random Vancomycin MRSA (TEM-PCR) Add-On Test Request DONE Objective Narrative Objective Narrative: CT head w/o contrast; No acute intracranial process. EKG: Afib, HR 83, no acute ischemia Time Spent with Patient Time Spent with Patient: 35-49 minutes Time was spent: preparing to see the patient(eg.review tests), obtaining and/or reviewing separately otained hiistory, ordering medications,tests, procedures, referring, communicating with other health family day care provider, indepentently interpreting results, counseling the patient and care coordination
[2023-05-27] MEDS: Aspirin E.C. 81 MG TABEC PO (15:07)
[2023-05-27] MEDS: Furosemide 20 MG/2 ML VIAL IVP (15:26)
[2023-05-27] MEDS: VANCOMYCIN/WATER (PEG) 750 MG/150 ML BAG 150 MG IVPB (16:20)
[2023-05-27 16:24] LABS: Creatinine,Urine 74.71 mg/dL
[2023-05-28] VITALS (44 sets, daily range): BP systolic 114–134; BP diastolic 56–78; PULSE 80–979; RESP 15–26; TEMP 36.5–37.3; O2SAT 86–95
--- NOTE | 2023-05-28 | DI.RAD_ITS ---
Exam(s) XR PORTABLE CHEST AP EXAM: XR PORTABLE CHEST AP CLINICAL HISTORY: pneumonia TECHNIQUE: 2D digital imaging was performed of the chest. One image was obtained. An AP view was ob tained. COMPARISON: CR XR PORTABLE CHEST AP from 05/26/2023 FINDINGS: MEDIASTINUM: Normal. HEART: Cardiomegaly. PULMONARY VASCULATURE: Normal. LUNGS: Clear. PLEURAL SPACE: No pleural effusion or pneumothorax. BONE:Within normal limits for the patient's age. OTHER FINDINGS:Normal. IMPRESSION: No acute pulmonary findings. DATA REPOSITORY: RADIATION DOSE DELIVERED:
[2023-05-28] MEDS: methylPREDNISolone SUCC 500 MG in Normal Saline 100 ML 200 MG IVPB ×2 (03:24→16:28)
[2023-05-28 06:33] LABS: Abs Immature Grans 0.13 10^3/uL (0.0-0.06); HCT 33.1 % (40.0-50.0); HGB 11.4 g/dL (13.5-17.5); MCH 32.4 pg (27.0-33.0); MCHC 34.4 % (32.0-36.0); MCV 94 fL (80-95); MPV 12.4 fL (8.0-11.0); RBC 3.52 10^6/uL (4.36-5.78); RDW 14.2 % (11.8-14.1); RDW-SD 49.2 fL; WBC 12.36 10^3/uL (4.4-10.8)
[2023-05-28 06:46] LABS: PTT Activated 54.9 sec (23.6-32.8)
[2023-05-28 06:55] LABS: Absolute Lymphocyte Count 1.11 10^3/uL (1.2-3.4); Absolute Monocyte Count 0.25 10^3/uL (0.1-0.8); Atypical Lymphocytes % 3
[2023-05-28 06:56] LABS: Diff Comment Manual Differential; Platelet Count 81 10^3/uL (130-400)
[2023-05-28 07:00] LABS: ALT 118 U/L (16-63); AST 266 U/L (15-37); Albumin 2.8 g/dL (3.4-5.0); Alkaline Phosphatase 112 U/L (46-116); Anion Gap 15.1 mmol/L (3-11); Bilirubin, Direct 0.4 mg/dL (0.0-0.2); Bilirubin, Total 0.8 mg/dL (0.2-1.0); C-Reactive Protein 13.66 mg/dL (0.0-0.3); CO2 19.9 mmol/L (21.0-32.0); Calcium 8.7 mg/dL (8.5-10.1); Chloride 98 mmol/L (98-107); Estimated GFR 15.83 (mL/min/1.73m2); Glucose 153 mg/dL (74-106); Potassium 3.2 mmol/L (3.5-5.1); Sodium 133 mmol/L (136-145); Total Protein 6.6 g/dL (6.4-8.2)
[2023-05-28 07:08] LABS: Creatine Kinase 2936 U/L (39-308)
[2023-05-28 07:09] LABS: BUN 91 mg/dL (7-18); CREATININE 3.7 mg/dL (0.70-1.30)
[2023-05-28 07:58] LABS: Lab Add On Test DONE
--- NOTE | 2023-05-28 08:00 | IN_ITS ---
PT Notes Visit Reasons: Severe Sepsis without Source Inpatient Physical Therapy Evaluation Date: May 28, 2023 Referring Doctor: Tamy Del Valle PT Orders: PT CONSULT: Limited ability Precautions: Standard, fall precautions, activity as tolerated Patient Profile/Admitting Diagnosis: 82-year-old male with a past medical history of chronic A-fib on Eliquis beta- stephen, and hypertension who presented to the emergency department on 05/26/23 with altered mental status. Since having his flu shot 3 days prior to ED visit the patient has been minimally ambulatory due to aches and pains and is really gotten up, has had poor p.o. intake and the patient's noted that he had a fever earlier in the day prior to arriving to the emergency department as well as confusion which prompted presenting to the ED. PMHX: PFSH All Active Problems (Updated 05/26/23 @ 18:32 by Arnaldo Mensah MD) Xvjfu-ed-acqmbfj kidney injury (Acute) Acute encephalopathy (Acute) Elevated LFTs (Acute) Myocarditis (Acute) Cardiogenic shock (Acute) Altered mental state (Acute) Hematuria (Acute) Cardiogenic shock (Acute) Elevated troponin (Acute) Elevated LFTs (Acute) Acute kidney injury superimposed on CKD (Acute) Hypokalemia (Acute) Hyponatremia (Acute) Anemia (Chronic) Myocarditis (Acute) Severe sepsis (Acute) Heart failure (Acute) Multi-organ failure with heart failure (Acute) Acute hypoxic respiratory failure (Acute) Acute lumbar back pain (Acute) De Quervain's tenosynovitis, right (Acute) Osteoarthritis of left knee (Acute) Left knee pain (Acute) Pre-diabetes (Acute) CKD (chronic kidney disease) (Chronic) Venous insufficiency (Acute) Dupuytrens contracture (Chronic ~2016) Hypertension (Chronic) BPH (benign prostatic hyperplasia) (Chronic) Atrial fibrillation, chronic (Chronic ~03/02/21) eliquis began 03/02/21, stress test and echo 03/22/[address] Rubioenal insufficiency (Chronic) Dyslipidemia (Chronic) low HLAbdominal obesity and metabolic syndrome (Acute) HTN (hypertension) with goal to be determined (Acute) Medical History Tubular adenoma on colonoscopy 01/02/13, repeat 09/07/18 WNLHyperkalemia Due to SEBASTIAN inhibitorNormal colonoscopy (09/07/18) 09/07/18 Dr Kurt Ying, [facility], normal, would be repeat in 10 years but due to age, repeat as needed. 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 Walko 01/02/13, 09/07/18 wnl Social History/Home Situation: Rob resides in [place] with his Katina. Multilevel home but primary residence on the first floor. Few stairs with railing upon entry. Current Functional Limitations: Community distance ambulation Equipment Owned/DME: Front wheel walker. Patient reports independent with ambulation and functional mobility/ADLs at baseline prior to admittance to [facility]. Subjective: My back is little sore. Feeling better and I did yesterday. Not really sure how much I'll be able to tolerate today. Objective: General Observation: Laying in bed with head of bed 45 degrees Mental Status: Alert and oriented x3. Pain: 2/10 Vital Signs: Monitored per nursing: Blood pressure 130/73, heart rate 91 bpm, O2 saturation 92% room air ROM: Right Upper Extremity: Within functional limits pain-free glenohumeral joint flexion, scaption, elbow flexion extension. Left Upper Extremity: Within functional limits pain-free glenohumeral joint flexion, scaption, elbow flexion and extension. Right Lower Extremity: Performs heel slide achieving 90 degrees hip flexion and 110 degrees knee flexion. Knee extension 0 degrees ankle dorsiflexion plantarflexion within functional limits. Left Lower Extremity: Performs heel slide achieving 95 degrees hip flexion and 115 degrees knee flexion. Knee extension 0 degrees. Ankle dorsiflexion and plantarflexion within functional limits. Strength: Right Upper Extremity: Glenohumeral joint flexion and abduction 4 -/5, elbow flexion and extension 4/5. Good portfolio consultant. Left Upper Extremity: Glenohumeral joint flexion and abduction 4 -/5, elbow flexion and extension 4/5. Good portfolio consultant. Right Lower Extremity: Perform straight leg raise with 0 degree lag. Hip flexion 4 -/5, quads 4/5, hamstring 4 -/5. Ankle dorsiflexion and plantarflexion 4/5 Left Lower Extremity: Straight leg raise with 0 degree lag. Hip flexion 4 -/5, quads 4/5, hamstrings 4 -/5. Ankle dorsiflexion and plantarflexion 4/5 Sensation: Reports intact sensation light touch bilateral lower extremities Bed Mobility/Transfers: Supine- sit: Head of bed 45 degrees standby assist Sit?stand: To front wheel walker standby assist Stand?sit: From front wheel walker standby assist Sit?supine: Standby assist Gait: Ambulated 10 feet x 2 with front wheel walker and contact-guard. Balance: Static Sitting: Normal Dynamic Sitting: Normal Static Standing: Good Dynamic Standing: Good Special Tests: Mobility Limitations Standardized Measure [facility] AM-PAC 6 clicks Basic Mobility Inpatient Short Form: Raw Score: 21 standardized Score: 29% Informed Consent/Education: Patient instructed in purpose of PT consult and plan of care. Assessment: Patient is a 82 year old male referred to physical therapy services with the diagnosis of severe sepsis without source. Patient presents with clinical signs and symptoms consistent with above diagnosis. He currently as demonstrated by the following impairment level findings: 1. decreased activity tolerance 2. gait impairments Impairments are contributing to the following functional limitations: 1. Difficulty with transfer 2. Difficulty with community distance ambulation Impairments are contributing to the following functional limitations: [facility] score. Patient is assessed as a [] Low 90427 X Moderate 90486 [] High 28347 complexity based on the following: History: See above Examination: See above Presentation: Evolving Decision Making: Moderate Goals: Goals X1 week 1. Supine-Sit: Independent 2. Sit-Supine: Independent 3. Sit-Stand : Independent 4. Stand-Sit : Independent 5. Bed-Chair : Independent 6. Chair-Bed independent: 7. Gait : Greater than 250 feet with least required assistive device standby assist Plan of Care/Treatment Plan: 1-2x/day, 7 days/week x 1 week. Plan of care has been reviewed with the EMT DISPATCHER providing the service under Physical Therapy direction. Initiate Physical Therapy intervention for strengthening, bed mobility, transfers, gait, stairs, balance training, use of assistive device. DISCHARGE RECOMMENDATIONS: [] Home with no services [] X Home with services once cleared medically [bilateral lower extremity strengthening, conditioning, ambulatory activities] [] Home with outpatient PT [] [] SNF for continued rehabilitation [] [] Manager Registration Care [] [] SNF versus LTC based on ability to participate and progress [] TREATMENT CODE/TIME: 61498: [id number] initial evaluation Thank you for this referral. Adriano Arrington PT, DPT Disclaimer: This note was created using Boonty voice recognition software. It was reviewed for major content. However, there may be multiple small discrepancies and errors due to the voice recognition aspects of the software.
[2023-05-28] MEDS: CEFEPIME 1 GM in Normal Saline 50 ML IVPB ×2 (08:47→21:21)
[2023-05-28] MEDS: Aspirin E.C. 81 MG TABEC PO (08:48)
[2023-05-28] MEDS: Potassium Chloride 20 MEQ TABCR 40 MEQ PO ×2 (08:48→16:47)
[2023-05-28 09:02] LABS: Procalcitonin 3.5 ng/mL
[2023-05-28] MEDS: Lactated Ringers 1,000 ML 100 ML IV (09:04)
--- NOTE | 2023-05-28 09:06 | W.PC.ACHO ---
Registration Status: ADM IN Primary Language: Preferred Language: Tamazight ED Information & Data Chief Complaint AMS/LOC 05/26/23 09:50 Triage Note pt got flu shot gui, 05/26/23 09:18 today is unable to get up, states AMS. febrile, 88 % RA, increased work of breathing. hx of afib and htn. 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) Colonoscopy - IV Sedation (~2006) Most Recent Vital Signs Temperature 36.5 C 05/28/23 03:16 Temperature Source Temporal Artery Scan 05/27/23 20:09 Pulse 87 05/28/23 08:01 Pulse 94 H 05/28/23 08:01 Respiratory Rate 18 05/28/23 08:01 Respiratory Effort Normal, Non-Labored 05/28/23 03:16 Respiratory Depth Normal 05/28/23 03:16 Respiratory Pattern Normal 05/28/23 03:16 Blood Pressure 130/73 05/28/23 08:01 Blood Pressure Mean 85 05/28/23 08:01 Blood Pressure Position Supine 05/28/23 03:16 Pulse Oximetry 93 05/28/23 08:01 Oxygen Delivery Method Room Air 05/28/23 03:16 Oxygen Flow Rate 0 05/28/23 03:16 Pain Level 0 05/28/23 03:[address] Del Valle notified 05/27/23 17:55 Allergies lisinopril Adverse Reaction (Intermediate, Verified 05/26/23 09:24) pt reports it worked, but states at his previous practice, the pcp did not like what it was doing to his potassium. Precautions Isolation Standard precaution 05/26/23 09:41 Active Medications Generic Name Dose Route Start Last Admin Trade Name Freq PRN Reason Stop Dose Admin Acetaminophen 0 mg 05/26/23 12:43 05/26/23 17:44 Acetaminophen 325 Mg Tab PO 650 mg Q4H PRN PRN Administration Aspirin 81 mg 05/28/23 08:30 05/28/23 08:48 Aspirin E.C. 81 Mg Tabec PO 81 mg DAILY LARRY Administration Norepinephrine Bitartrate 8 mg in 250 mls @ 9.375 mls/hr 05/26/23 11:15 05/28/23 07:08 IV Infused INFUSION LARRY Titration Protocol 5 MCG/MIN Cefepime HCl 1 gm/ Sodium 50 mls @ 100 mls/hr 05/26/23 20:00 05/28/23 08:47 Chloride IVPB 100 mls/hr Q12H LARRY Administration Heparin Sodium/Sodium Chloride 25,000 unit in 250 mls @ 0 mls/hr 05/26/23 14:30 05/28/23 07:04 IV 10 mls/hr INFUSION LARRY 10 mls/hr Titration Protocol Per Protocol Methylprednisolone Sodium 100 mls @ 200 mls/hr 05/26/23 16:00 05/28/23 07:07 Succinate 500 mg/ Sodium IVPB 05/29/23 04:29 Infused Chloride Q12H LARRY Infusion Vancomycin/PEG/NADA/Lysine/Water 750 mg in 150 mls @ 150 mls/hr 05/27/23 16:00 05/27/23 17:47 Vancocin Injection IVPB Infused Q24H LARRY Infusion Ringer's Solution 1,000 mls @ 100 mls/hr 05/27/23 09:45 05/28/23 09:04 IV 100 mls/hr INFUSION LARRY Administration Sodium Chloride 0 ml 05/26/23 09:23 05/27/23 15:32 Normal Saline Flush 10 Ml Syr IVP 10 ml PRN PRN Administration IV IV Catheter Type [Left Forearm Peripheral IV ] IV Catheter Type [Right Peripheral IV Antecubital] IV Catheter Gauge [Left 20 Forearm] IV Catheter Gauge [Right 18 Antecubital] Diagnostics 05/28/23 05/27/23 05/27/23 Range/Units 05:55 15:47 15:42 WBC 12.36 H (4.4-10.8) 10^3/uL RBC 3.52 L (4.36-5.78) 10^6/uL Hgb 11.4 L (13.5-17.5) g/dL Hct 33.1 L (40.0-50.0) % MCV 94 (80-95) fL MCH 32.4 (27.0-33.0) pg MCHC 34.4 (32.0-36.0) % RDW 14.2 H (11.8-14.1) % Plt Count 81 L (130-400) 10^3/uL MPV 12.4 H (8.0-11.0) fL Immature Gran % 0.0 Neutrophils % 89.0 Lymphocytes % 6.0 Atypical Lymphs % 3 Monocytes % 2.0 Eosinophils % 0.0 Basophils % 0.0 Nucleated RBC % 0.0 (0.0-0.3) % Absolute Neutrophils 11.00 H (1.2-6.7) 10^3/uL Absolute Lymphocytes 1.11 L (1.2-3.4) 10^3/uL Absolute Monocytes 0.25 (0.1-0.8) 10^3/uL Absolute Eosinophils 0.00 (0.0-0.7) 10^3/uL Absolute Basophils 0.00 (0.0-0.2) 10^3/uL APTT 54.9 H (23.6-32.8) sec Sodium 133 L (136-145) mmol/L Potassium 3.2 L (3.5-5.1) mmol/L Chloride 98 (98-107) mmol/L Carbon Dioxide 19.9 L (21.0-32.0) mmol/L Anion Gap 15.1 H (3-11) mmol/L BUN 91 H* (7-18) mg/dL Creatinine 3.7 H* (0.70-1.30) mg/dL Est GFR (CKD-EPI 2020) 15.83 (mL/min/1.73m2) Glucose 153 H (74-106) mg/dL Calcium 8.7 (8.5-10.1) mg/dL Magnesium 2.0 (1.8-2.4) mg/dL Total Bilirubin 0.8 (0.2-1.0) mg/dL Conjugated Bilirubin 0.4 H (0.0-0.2) mg/dL AST 266 H (15-37) U/L ALT 118 H (16-63) U/L Alkaline Phosphatase 112 (46-116) U/L Creatine Kinase 2936 H (39-308) U/L C-Reactive Protein 13.66 H (0.0-0.3) mg/dL Total Protein 6.6 (6.4-8.2) g/dL Albumin 2.8 L (3.4-5.0) g/dL Procalcitonin 3.5 ng/mL Ur Random Creatinine 74.71 mg/dL Urine Urea Nitrogen Pending Add-On Test Request DONE 05/27/23 Range/Units 12:00 WBC (4.4-10.8) 10^3/uL RBC (4.36-5.78) 10^6/uL Hgb 12.8 L (13.5-17.5) g/dL Hct 37.6 L (40.0-50.0) % MCV (80-95) fL MCH (27.0-33.0) pg MCHC (32.0-36.0) % RDW (11.8-14.1) % Plt Count (130-400) 10^3/uL MPV (8.0-11.0) fL Immature Gran % Neutrophils % Lymphocytes % Atypical Lymphs % Monocytes % Eosinophils % Basophils % Nucleated RBC % (0.0-0.3) % Absolute Neutrophils (1.2-6.7) 10^3/uL Absolute Lymphocytes (1.2-3.4) 10^3/uL Absolute Monocytes (0.1-0.8) 10^3/uL Absolute Eosinophils (0.0-0.7) 10^3/uL Absolute Basophils (0.0-0.2) 10^3/uL APTT (23.6-32.8) sec Sodium (136-145) mmol/L Potassium (3.5-5.1) mmol/L Chloride (98-107) mmol/L Carbon Dioxide (21.0-32.0) mmol/L Anion Gap (3-11) mmol/L BUN (7-18) mg/dL Creatinine (0.70-1.30) mg/dL Est GFR (CKD-EPI 2020) (mL/min/1.73m2) Glucose (74-106) mg/dL Calcium (8.5-10.1) mg/dL Magnesium (1.8-2.4) mg/dL Total Bilirubin (0.2-1.0) mg/dL Conjugated Bilirubin (0.0-0.2) mg/dL AST (15-37) U/L ALT (16-63) U/L Alkaline Phosphatase (46-116) U/L Creatine Kinase (39-308) U/L C-Reactive Protein (0.0-0.3) mg/dL Total Protein (6.4-8.2) g/dL Albumin (3.4-5.0) g/dL Procalcitonin ng/mL Ur Random Creatinine mg/dL Urine Urea Nitrogen Add-On Test Request 05/27/23 18:35 Blood Culture - Pending Blood 05/27/23 18:35 Blood Culture - Pending Blood 05/26/23 10:05 Blood Culture - Preliminary Blood NO GROWTH 24 HOURS 05/26/23 09:50 Blood Culture - Preliminary Blood NO GROWTH 24 HOURS Intake and Output - 24 Hour Total 05/26/23 09:13 thru 05/28/23 09:02 Intake Total 5007.635 Output Total 2700 Balance 2307.635 Weight 118.6 kg Intake: IV 3707.635 Oral 1300 Output: Urine 2700 Other: Urine Color Straw Urine Appearance Clear Comment rangel catheter in place Stool Occult Blood Positive Stool Size Small Stool Characteristics Hard Bloody Urinary Catheter Urinary Catheter Date of 05/26/23 Insertion [Uretheral (Rangel)] Urinary Catheter Date of 05/26/23 Insertion [Uretheral (Rangel)] Urinary Catheter Date of 05/26/23 Insertion [Uretheral (Rangel)] Time of insertion [Uretheral ( 14:10 Rangel)] Time of insertion [Uretheral ( 14:10 Ragnel)] Time of insertion [Uretheral ( 14:10 Rangel)] Falls Risk Assessment History of Falls No History 05/26/23 12:15 Contributing Factors Unstable,Incontinence 05/26/23 12:15 Ambulatory Aids Independent 05/26/23 12:15 Tubes/Lines W/no contributing factors 05/26/23 12:15 Gait Evaluation W/any additional score 05/26/23 12:15 Cognition No cognitive impairment 05/26/23 12:15 Fall Total Score 36 05/26/23 12:15 Level of Risk Moderate Risk 05/26/23 12:15 Problems (Last Reviewed 05/26/23 @ 09:48 by Joselin David MD) Rhabdomyolysis (Acute) Discharge planning issues (Acute) DVT prophylaxis (Acute) Septic shock (Acute) [id number] kidney injury (Acute) Elevated LFTs (Acute) Myocarditis (Acute) Cardiogenic shock (Acute) Altered mental state (Acute) Hematuria (Acute) Cardiogenic shock (Acute) Elevated troponin (Acute) Elevated LFTs (Acute) Acute kidney injury superimposed on CKD (Acute) Hyponatremia (Acute) Anemia (Chronic) Severe sepsis (Acute) Heart failure (Acute) Multi-organ failure with heart failure (Acute) Acute hypoxic respiratory failure (Acute) Atrial fibrillation, chronic (Chronic ~03/02/21) Notes 05/27/23 04:40 Nursing Notes by Ashley Chen Nursing Note: Patient received second bag of 6 ordered of Methylprednisolone IV over 30 minutes. Patient did not have diaphoretic response to and currently skin is cool and dry. Offered to get OOB and freshen linens and patient declined at this time. Initialized on 05/27/23 04:40 - END OF NOTE v v v v v v v v v Sending and/or Receiving Nurses: Please use comment section below to note any information pertinent to the patient hand-off not included above. Information / Comments: Report received from: Jena Smith RN at 0700
--- NOTE | 2023-05-28 09:31 | W.PM.PROGNOT ---
Date of Service Date of service: 05/28/23 Time of Service: 09:31 Assessment and Plan Assessment and plan (1) Septic shock: Status: Acute Assessment and plan: Source unclear. I am repeating a CXR given cough. Repeat blood cultures were done yesterday due to fever - await. Off of pressors, doing better. Did have an elevated procalcitonin, but could be due to a recent vaccination. Will continue empiric vancomycin, cefepime. On steroids. Trend procalcitonin (actually, slightly worse). (2) Cardiogenic shock: Status: Acute Assessment and plan: Await formal echocardiogram. This is suspected due to hypoxic respiratory failure, plethoric IVC, clinical evidence of fluid overload, as well as elevated troponin. Ddx: septic cardiomyopathy vs myocarditis vs a primary ACS. Continue heparin gtt for a total of 48 hrs (this should end at 4:30 pm today). Continue asa. Holding statin in light of rhabdomyolysis. (3) Rhabdomyolysis: Status: Acute Assessment and plan: In setting of a recent influenza vaccine, statin therapy. Improved. Awaiting tick studies as well. Does have evidence of RYLAND on CKD, and this is a little worse despite CPK improving. Continue IVF + furosemide. Consider sodium bicarb. C/s nephrology. Trend CPK. Hold statin. (4) Multi-organ failure with heart failure: Status: Acute Assessment and plan: Encephalopathy, CHF, respiratory failure, RYLAND on CKD, transaminitis. Could be due to septic or cardiogenic shock. Transaminitis could be explained by rhabdo and is improving. CHF and respiratory failure are both better. RYLAND is slightly worse. Continue to monitor as we are treating infection. (5) Acute encephalopathy: Status: Resolved Assessment and plan: Mental status has normalized. CT head negative. Suspect this was toxic metabolic encephalopathy in setting of hypotension/vaccine reaction/possible sepsis. No evidence of a meningeal process. (6) Elevated troponin: Status: Acute Assessment and plan: DDx: NSTEMI (type 1 vs type 2), rhyabdomyolysis, myocarditis. Await a formal echocardiogram read. Continue asa, hold statin, d/c heparin gtt at 48 hrs. C/s cardiology. Monitor for blood in stool. (7) Acute hypoxic respiratory failure: Status: Resolved Assessment and plan: Much improved. Etiology: likely pulmonary edema, but we are also ruling out PNA. Obtain a repeat CXR and a sputum sample. Continue to diurese as we are hydrating for treatment of rhabdomyolysis. (8) Myocarditis: Status: Suspected Assessment and plan: As a consequence (9) Acute kidney injury superimposed on CKD: Status: Acute Assessment and plan: In setting of rhabdomyolysis, shock. Await FeUrea (10) Anemia: Status: Chronic Assessment and plan: Is heme positive, but the amount of bleeding and its appearance suggest a hemorrhoidal source. Continue to monitor. Would not stop anticoagulation at this time. (11) Hyponatremia: Status: Acute Assessment and plan: Improving. MOnitor with hydration + diuresis. (12) Hypokalemia: Status: Acute Assessment and plan: replete; Recheck in am (13) Elevated LFTs: Status: Acute Assessment and plan: In setting of shock but also rhabdomyolysis. Statin d/c'ed. Treat rhabdo - this is improving. CT w/ normal density and no measurable mass. Gallbladder w/o calculus or dilation. (14) Hematuria: Status: Acute Assessment and plan: Suspect traumatic insertion. Clinically this is better. Montior. (15) Atrial fibrillation, chronic: Status: Chronic Assessment and plan: Rate controlled. Currently on anticoagulation with heparin gtt. Transitioning to renally dosed eliquis tonight. Continue cardiac monitoring. (16) DVT prophylaxis: Status: Acute Assessment and plan: On heparin gtt, transitioning to eliquis tonight. (17) Discharge planning issues: Status: Acute Assessment and plan: Full code PT consulted. Keep in the ICU for now - would need Q2H labs if on bicarb drip. Total Critical Care Time 45 minutes. Subjective Subjective Interval history since last seen: Mr Rivera is feeling better. Describes a productive cough but does not know the color of the sputum. Denies dizziness, CP, SOB, n/v. We discussed getting a CXR, that I would speak to nephrology, consult cardiology. We discussed the possibility (but hopefully not) of HD. UOP 600 cc overnight. BP 131/73. Wheezing was reported by overnight nursing. Poor PO intake. Exam Narrative Exam Narrative: General: Pleasant elderly male who is sitting up in a chair, A&Ox3, looks better, on RA. HEENT: EOMI, MMM Heart: irregularly irregular, no m/r/g Lungs: CTAB Abdomen: soft, nontender, nondistended Extremities: +1 edema BLEs Objective Last Vital Signs Temp 36.5 C 05/28/23 03:16 Pulse 87 05/28/23 08:01 Resp 18 05/28/23 08:01 BP 130/73 05/28/23 08:01 Pulse Ox 93 05/28/23 08:01 Laboratory Results - last 24 hr 05/27/23 05/27/23 05/28/23 12:00 15:47 05:55 WBC 12.36 H RBC 3.52 L Hgb 12.8 L 11.4 L Hct 37.6 L 33.1 L MCV 94 MCH 32.4 MCHC 34.4 RDW 14.2 H Plt Count 81 L MPV 12.4 H Immature Gran % 0.0 Neutrophils % 89.0 Lymphocytes % 6.0 Atypical Lymphs % 3 Monocytes % 2.0 Eosinophils % 0.0 Basophils % 0.0 Nucleated RBC % 0.0 Absolute Neutrophils 11.00 H Absolute Lymphocytes 1.11 L Absolute Monocytes 0.25 Absolute Eosinophils 0.00 Absolute Basophils 0.00 APTT 54.9 H Sodium 133 L Potassium 3.2 L Chloride 98 Carbon Dioxide 19.9 L Anion Gap 15.1 H BUN 91 H* Creatinine 3.7 H* Est GFR (CKD-EPI 2020) 15.83 Glucose 153 H Calcium 8.7 Magnesium 2.0 Total Bilirubin 0.8 Conjugated Bilirubin 0.4 H AST 266 H ALT 118 H Alkaline Phosphatase 112 Creatine Kinase 2936 H C-Reactive Protein 13.66 H Total Protein 6.6 Albumin 2.8 L Procalcitonin 3.5 Ur Random Creatinine 74.71 Add-On Test Request DONE Multi-Disciplinary Checklist Lines/Tubes CENTRAL LINE: no ARTERIAL LINE: no COATES: yes, Coates Day#: 3 ENDOTRACHEAL TUBE: no ICU Maintenance GLUCOSE 140-180mg/dL: yes NUTRITION AT GOAL: yes PRESSURE ULCER: no RESTRAINTS: no ANTIBIOTICS(if yes, consider Stewardship): Yes Social Issues FAMILY UPDATED: yes PT/OT: yes GOALS/DISPOSITION/IT SUPPORT TECHNICIAN: yes CODE STATUS: Full Prophylaxis DVT PROPHYLAXIS: yes GI PROPHYLAXIS: yes, Indication: on steroids Time Spent with Patient Time Spent with Patient: 35-49 minutes Time was spent: preparing to see the patient(eg.review tests), obtaining and/or reviewing separately otained hiistory, ordering medications,tests, procedures, referring, communicating with other health health care law specialist, indepentently interpreting results, counseling the patient and care coordination
[2023-05-28 09:46] LABS: Bilirubin Negative (Negative); Blood Large (Negative); Clarity Clear (Clear); Glucose Negative (Negative); Ketones Negative (Negative); Leukocyte Esterase Negative (Negative); Nitrite Negative (Negative); Specific Gravity 1.015 (1.005-1.025); Urobilinogen 0.2 mg/dL (Up to 0.2)
[2023-05-28 09:55] LABS: BE (Venous) -8 mmol/L (-2-3); HCO3 (Venous) 17 mmol/L (23-28); O2 Sat (Venous) 95 %; TCO2 (Venous) 16 mmol/L (24-29); pCO2 (Venous) 31 mmHg (41-51); pH (Venous) 7.36 (7.31-7.41); pO2 (Venous) 68 mmHg
[2023-05-28 10:01] LABS: Bacteria Few HPF (Negative); Crystals Few Amorphous HPF (Negative); Epithelial Cells Rare HPF (Negative); Mucus Trace (Negative); RBC 20-50 HPF (0-2); WBC 0-2 HPF (0-5)
[2023-05-28 10:02] LABS: C & S Indicated? Yes
[2023-05-28] MEDS: Furosemide 20 MG/2 ML VIAL IVP (10:11)
[2023-05-28] MEDS: Docusate Sodium 100 MG CAP PO (10:11)
--- NOTE | 2023-05-28 10:13 | DI.VRAD_ITS ---
PROCEDURE INFORMATION: Exam: XR Chest Exam date and time: 05/28/2023 10:00 AM Age: 82 years old Clinical indication: Fever TECHNIQUE: Imaging protocol: Radiologic exam of the chest. Views: 1 view. COMPARISON: CT CHEST/ABD/PEL W 05/26/2023 4:43 PM FINDINGS: Lungs: Unremarkable. No consolidation. Pleural spaces: Unremarkable. No pleural effusion. No pneumothorax. Heart/Mediastinum: Cardiomegaly. Bones/joints: Unremarkable. IMPRESSION: Cardiomegaly with no acute process Dictated and Authenticated by: Ashley Staley MD. Ordering:LALY Morelos MD
[2023-05-28] MEDS: Pantoprazole 40 MG TABCR PO (10:15)
[2023-05-28] MEDS: Normal Saline 1,000 ML 75 ML IV (11:36)
[2023-05-28] MEDS: SODIUM BICARBONATE 150 MEQ in DEXTROSE 5%-WATER 850 ML 75 MEQ IV (11:39)
[2023-05-28 13:08] LABS: BE (Venous) -8 mmol/L (-2-3); HCO3 (Venous) 17 mmol/L (23-28); O2 Sat (Venous) 98 %; TCO2 (Venous) 16 mmol/L (24-29); pCO2 (Venous) 28 mmHg (41-51); pO2 (Venous) 85 mmHg
[2023-05-28 13:12] LABS: Bilirubin Negative (Negative); Blood Large (Negative); Clarity Sl Cloudy (Clear); Glucose Negative (Negative); Ketones Negative (Negative); Leukocyte Esterase Negative (Negative); Nitrite Negative (Negative); Specific Gravity 1.015 (1.005-1.025); Urobilinogen 0.2 mg/dL (Up to 0.2)
[2023-05-28] MEDS: Heparin in 0.45% NaCl 25,000 UNIT/250 ML BAG 10 UNIT IV (13:14)
[2023-05-28 13:19] LABS: Bacteria Few HPF (Negative); Epithelial Cells Rare HPF (Negative); RBC 20-50 HPF (0-2); WBC 0-2 HPF (0-5)
[2023-05-28 13:20] LABS: C & S Indicated? Yes; Crystals Negative HPF (Negative); Mucus Trace (Negative)
[2023-05-28 13:34] LABS: Creatine Kinase 2426 U/L (39-308)
[2023-05-28 15:23] LABS: Bilirubin Negative (Negative); Blood Large (Negative); Clarity Clear (Clear); Glucose Negative (Negative); Ketones Negative (Negative); Leukocyte Esterase Negative (Negative); Nitrite Negative (Negative); Urobilinogen 0.2 mg/dL (Up to 0.2)
[2023-05-28 15:30] LABS: BE (Venous) -7 mmol/L (-2-3); HCO3 (Venous) 18 mmol/L (23-28); O2 Sat (Venous) 98 %; TCO2 (Venous) 16 mmol/L (24-29); pCO2 (Venous) 29 mmHg (41-51); pH (Venous) 7.39 (7.31-7.41); pO2 (Venous) 86 mmHg
[2023-05-28 15:40] LABS: Bacteria Rare HPF (Negative); C & S Indicated? No; Casts Negative LPF (Negative); Crystals Moderate Amorphous HPF (Negative); Epithelial Cells Rare HPF (Negative); Mucus Negative (Negative); WBC Negative HPF (0-5)
[2023-05-28 15:56] LABS: Urea Nitrogen Random Urine 612 mg/dL (See Note)
[2023-05-28 15:57] LABS: Anion Gap 15.6 mmol/L (3-11); CO2 18.4 mmol/L (21.0-32.0); CREATININE 3.5 mg/dL (0.70-1.30); Calcium 8.7 mg/dL (8.5-10.1); Chloride 98 mmol/L (98-107); Estimated GFR 16.92 (mL/min/1.73m2); Glucose 218 mg/dL (74-106); Potassium 3.2 mmol/L (3.5-5.1); Sodium 132 mmol/L (136-145)
[2023-05-28 15:59] LABS: Creatine Kinase 2121 U/L (39-308)
[2023-05-28 16:01] LABS: BUN 101 mg/dL (7-18)
[2023-05-28] MEDS: VANCOMYCIN/WATER (PEG) 750 MG/150 ML BAG 150 MG IVPB (17:14)
[2023-05-28] MEDS: Insulin Aspart 300 UNITS/3 ML PEN SC ×2 (17:14→21:36)
[2023-05-28 17:16] LABS: BE (Venous) -7 mmol/L (-2-3); HCO3 (Venous) 19 mmol/L (23-28); O2 Sat (Venous) 92 %; TCO2 (Venous) 17 mmol/L (24-29); pCO2 (Venous) 31 mmHg (41-51); pH (Venous) 7.39 (7.31-7.41); pO2 (Venous) 59 mmHg
[2023-05-28 17:24] LABS: Bilirubin Negative (Negative); Blood Moderate (Negative); Clarity Clear (Clear); Glucose Negative (Negative); Ketones Negative (Negative); Leukocyte Esterase Negative (Negative); Nitrite Negative (Negative); Specific Gravity 1.015 (1.005-1.025); Urobilinogen 0.2 mg/dL (Up to 0.2)
[2023-05-28 17:31] LABS: Anion Gap 15.1 mmol/L (3-11); CO2 19.9 mmol/L (21.0-32.0); Calcium 8.8 mg/dL (8.5-10.1); Chloride 98 mmol/L (98-107); Estimated GFR 16.36 (mL/min/1.73m2); Glucose 198 mg/dL (74-106); Potassium 3.3 mmol/L (3.5-5.1); Sodium 133 mmol/L (136-145)
[2023-05-28 17:32] LABS: Bacteria Rare HPF (Negative); C & S Indicated? No; Casts 0-2 Hyaline LPF (Negative); Crystals Moderate Amorphous HPF (Negative); Epithelial Cells Rare HPF (Negative); Mucus Negative (Negative); WBC Negative HPF (0-5)
[2023-05-28 17:35] LABS: BUN 101 mg/dL (7-18); CREATININE 3.6 mg/dL (0.70-1.30)
[2023-05-28 18:58] LABS: BE (Venous) -6 mmol/L (-2-3); HCO3 (Venous) 19 mmol/L (23-28); O2 Sat (Venous) 98 %; TCO2 (Venous) 17 mmol/L (24-29); pCO2 (Venous) 30 mmHg (41-51); pO2 (Venous) 84 mmHg
[2023-05-28 19:11] LABS: Bilirubin Negative (Negative); Blood Moderate (Negative); Clarity Clear (Clear); Glucose Negative (Negative); Ketones Negative (Negative); Leukocyte Esterase Negative (Negative); Nitrite Negative (Negative); Specific Gravity 1.015 (1.005-1.025); Urobilinogen 0.2 mg/dL (Up to 0.2)
[2023-05-28 19:19] LABS: Bacteria Rare HPF (Negative); Crystals Few Amorphous HPF (Negative); Epithelial Cells Rare HPF (Negative); Mucus Negative (Negative); WBC 0-2 HPF (0-5)
[2023-05-28 19:20] LABS: C & S Indicated? No; Casts 0-2 Hyaline LPF (Negative)
[2023-05-28 19:27] LABS: Anion Gap 14.7 mmol/L (3-11); CO2 19.3 mmol/L (21.0-32.0); CREATININE 3.5 mg/dL (0.70-1.30); Calcium 8.6 mg/dL (8.5-10.1); Chloride 97 mmol/L (98-107); Estimated GFR 16.92 (mL/min/1.73m2); Glucose 219 mg/dL (74-106); Potassium 3.3 mmol/L (3.5-5.1); Sodium 131 mmol/L (136-145)
[2023-05-28 19:29] LABS: Creatine Kinase 1841 U/L (39-308)
[2023-05-28 19:31] LABS: BUN 100 mg/dL (7-18)
[2023-05-28 21:05] LABS: BE (Venous) -4 mmol/L (-2-3); HCO3 (Venous) 20 mmol/L (23-28); pCO2 (Venous) 27 mmHg (41-51); pH (Venous) 7.48 (7.31-7.41); pO2 (Venous) 104 mmHg
[2023-05-28 21:12] LABS: Bilirubin Negative (Negative); Blood Large (Negative); Clarity Clear (Clear); Glucose Negative (Negative); Ketones Negative (Negative); Leukocyte Esterase Negative (Negative); Nitrite Negative (Negative); Specific Gravity 1.015 (1.005-1.025); Urobilinogen 0.2 mg/dL (Up to 0.2)
[2023-05-28] MEDS: SODIUM BICARBONATE 150 MEQ in DEXTROSE 5%-WATER 850 ML IV (21:12)
[2023-05-28] MEDS: Apixaban 2.5 MG TAB PO (21:20)
[2023-05-28 21:23] LABS: Bacteria Rare HPF (Negative); Crystals Few Amorphous HPF (Negative); Epithelial Cells Rare HPF (Negative); Mucus Negative (Negative); RBC 20-50 HPF (0-2); WBC 0-2 HPF (0-5)
[2023-05-28 21:24] LABS: C & S Indicated? No; Casts 3-5 Hyaline LPF (Negative)
[2023-05-28 21:37] LABS: CREATININE 3.4 mg/dL (0.70-1.30); Calcium 8.7 mg/dL (8.5-10.1); Chloride 96 mmol/L (98-107); Estimated GFR 17.52 (mL/min/1.73m2); Glucose 235 mg/dL (74-106); Potassium 3.5 mmol/L (3.5-5.1); Sodium 130 mmol/L (136-145)
[2023-05-28 21:38] LABS: Creatine Kinase 1797 U/L (39-308)
[2023-05-28 21:39] LABS: BUN 102 mg/dL (7-18)
[2023-05-28] MEDS: Normal Saline Flush 10 ML SYR IVP (22:00)
[2023-05-28 23:47] LABS: BE (Venous) -2 mmol/L (-2-3); HCO3 (Venous) 22 mmol/L (23-28); O2 Sat (Venous) 98 %; TCO2 (Venous) 20 mmol/L (24-29); pCO2 (Venous) 33 mmHg (41-51); pH (Venous) 7.43 (7.31-7.41); pO2 (Venous) 83 mmHg
[2023-05-29] VITALS (31 sets, daily range): BP systolic 113–135; BP diastolic 61–99; PULSE 79–99; RESP 14–24; TEMP 36.2–37; O2SAT 87–96
--- NOTE | 2023-05-29 | DI.US_ITS ---
APPROVED REPORT EXAM: Comprehensive 2D, Doppler, and color-flow Echocardiogram Patient Location: In-Patient Room/Bed: [address] Casket Assembler: Poncho Florez RDCS (AE) Indications: trop, no chest pain, elevated pBNP Other Information Study Quality: Technically Limited. Technically limited study due to body habitus, inability to posit ion patient. Conclusion Technically limited and suboptimal study Left ventricle appears grossly normal in size wall thickness and systolic function. This study is no t adequate to assess for wall motion abnormalities Grossly normal right ventricular size and function Both atria are dilated Aortic valve is calcified. Unable to determine number of leaflets. There is moderate to severe aort ic stenosis. Peak gradient is 55, mean 30 mmHg. Calculated aortic valve area is 0.6 cm??. There is trace aortic regurgitation Normal tricuspid valve with mild to moderate regurgitation. Estimated right ventricular systolic pre ssure is 44 mmHg Wall motion Left Ventricle The left ventricle is normal size. The left ventricular systolic function is normal. The left ventric ular ejection fraction is within the normal range. There is no ventricular septal defect visualized. LVEF is 55%. Right Ventricle The right ventricle is normal size. Right ventricular systolic function could not be assessed. Atria Left atrium is mildly dilated. Right atrium is mildly dilated. Interatrial septum not well visualized . Aortic Valve Aortic valve is calcified. Number of aortic valve leaflets could not be assessed. Moderate to severe aortic stenosis. Peak aortic valve gradient is 54.49 mmHg. Highest mean aortic valve gradient is 30.0 6 mmHg. Calculated KRISTAN by the continuity equation is 0.6 cm2. Trace aortic regurgitation. Mitral Valve The mitral valve is normal in structure. No evidence of mitral valve stenosis. There is no mitral ramon ve regurgitation noted. Tricuspid Valve The tricuspid valve is normal in structure. There is no tricuspid valve stenosis. Mild to moderate tr icuspid regurgitation. Pulmonic Valve Pulmonic valve is not well visualized. There is no pulmonic valvular stenosis. Trace pulmonic regurgi tation. Great Vessels The aortic root is normal in size. Ascending aorta is not well visualized. Aortic arch is not well vi sualized. IVC is normal in size and collapses >50% with inspiration. Pericardium There is no pericardial effusion. 2D Dimensions Ao Root d 3.73 cm M: 3.1 - 3.7 LV Diastology MV E Vmax 0.81 (0.4-1.3 m/s) MV A Vmax 0.30 (0.4-1.3 m/s) E/A Ratio 2.7 Aortic Valve AoV Vmax 3.69 m/s LVOT Vmax 0.68 m/s AoV Peak Grad 54.5 mmHg LVOT Peak Grad 1.8 mmHg AoV Area (Vmax) 0.60 cm2 LVOT VTI 0.104 m AoV VTI 0.546 m LVOT Mean Grad 1.0 mmHg AoV Mean Bobby. 2.52 m/s LVOT SV 34.06 mL AoV Mean Grad 30.1 mmHg LVOT Diam s 2.00 cm AoV Area (VTI) 0.62 cm2 Velocity Ratio 0.18 Mitral Valve MV DT 149 (160-240 msec) Pulmonary Valve PV Vmax 1.25 (0.5-1.5 m/s) RVOT Vmax 0.88 m/s PV Peak Grad 6.2 mmHg RVOT Peak Gr. 3.1 mmHg PV Mean Bobby 0.91 m/s RVOT VTI 0.178 m PV Mean Grad 3.5 mmHg RVOT Mean Gr. 1.5 mmHg Tricuspid Valve RA Pressure 3.00 mmHg TR Vmax 3.22 m/s TR Peak Grad 41.4 mmHg RVSP (TR) 44.5 mmHg
[2023-05-29 00:04] LABS: ALT 140 U/L (16-63); AST 231 U/L (15-37); Albumin 2.6 g/dL (3.4-5.0); Alkaline Phosphatase 111 U/L (46-116); Anion Gap 13.3 mmol/L (3-11); Bilirubin, Total 0.7 mg/dL (0.2-1.0); CO2 22.7 mmol/L (21.0-32.0); CREATININE 3.3 mg/dL (0.70-1.30); Calcium 8.6 mg/dL (8.5-10.1); Chloride 97 mmol/L (98-107); Estimated GFR 18.16 (mL/min/1.73m2); Glucose 225 mg/dL (74-106); Potassium 3.1 mmol/L (3.5-5.1); Sodium 133 mmol/L (136-145); Total Protein 6.3 g/dL (6.4-8.2)
[2023-05-29 00:07] LABS: BUN 101 mg/dL (7-18)
[2023-05-29 02:06] LABS: BE (Venous) -2 mmol/L (-2-3); HCO3 (Venous) 23 mmol/L (23-28); pCO2 (Venous) 35 mmHg (41-51); pH (Venous) 7.43 (7.31-7.41); pO2 (Venous) 136 mmHg
[2023-05-29 02:10] LABS: Bilirubin Negative (Negative); Blood Large (Negative); Clarity Sl Cloudy (Clear); Glucose Negative (Negative); Ketones Negative (Negative); Leukocyte Esterase Negative (Negative); Nitrite Negative (Negative); Specific Gravity 1.015 (1.005-1.025); Urobilinogen 0.2 mg/dL (Up to 0.2)
[2023-05-29 02:23] LABS: Bacteria Few HPF (Negative); Crystals Few Amorphous HPF (Negative); Epithelial Cells Rare HPF (Negative); WBC 0-2 HPF (0-5)
[2023-05-29 02:24] LABS: C & S Indicated? No; Casts 0-2 Fine Granular LPF (Negative); Mucus Negative (Negative)
[2023-05-29 02:32] LABS: Anion Gap 12.6 mmol/L (3-11); CO2 23.4 mmol/L (21.0-32.0); CREATININE 3.3 mg/dL (0.70-1.30); Calcium 8.6 mg/dL (8.5-10.1); Chloride 96 mmol/L (98-107); Estimated GFR 18.16 (mL/min/1.73m2); Glucose 216 mg/dL (74-106); Potassium 3.2 mmol/L (3.5-5.1); Sodium 132 mmol/L (136-145)
[2023-05-29 02:33] LABS: Creatine Kinase 1671 U/L (39-308)
[2023-05-29 02:34] LABS: BUN 100 mg/dL (7-18)
[2023-05-29] MEDS: methylPREDNISolone SUCC 500 MG in Normal Saline 100 ML 200 MG IVPB (04:07)
[2023-05-29 04:10] LABS: BE (Venous) -1 mmol/L (-2-3); HCO3 (Venous) 23 mmol/L (23-28); pCO2 (Venous) 33 mmHg (41-51); pH (Venous) 7.45 (7.31-7.41); pO2 (Venous) 161 mmHg
[2023-05-29 04:17] LABS: Abs Immature Grans 0.18 10^3/uL (0.0-0.06); MCH 32.2 pg (27.0-33.0); MCHC 34.4 % (32.0-36.0); MCV 94 fL (80-95); MPV 12.3 fL (8.0-11.0); Nucleated RBC 0.1 % (0.0-0.3); RBC 3.42 10^6/uL (4.36-5.78); RDW 14.3 % (11.8-14.1); RDW-SD 49.1 fL; WBC 15.94 10^3/uL (4.4-10.8)
[2023-05-29 04:22] LABS: Bilirubin Negative (Negative); Blood Large (Negative); Clarity Sl Cloudy (Clear); Glucose Negative (Negative); Ketones Negative (Negative); Leukocyte Esterase Negative (Negative); Nitrite Negative (Negative); Urobilinogen 0.2 mg/dL (Up to 0.2)
[2023-05-29 04:34] LABS: Bacteria Moderate HPF (Negative); C & S Indicated? Yes; Casts 3-5 Fine Granular LPF (Negative); Crystals Negative HPF (Negative); Epithelial Cells Rare HPF (Negative); Mucus Negative (Negative); WBC 0-2 HPF (0-5)
[2023-05-29 04:37] LABS: Anion Gap 11.4 mmol/L (3-11); C-Reactive Protein 8.54 mg/dL (0.0-0.3); CO2 24.6 mmol/L (21.0-32.0); CREATININE 3.2 mg/dL (0.70-1.30); Calcium 8.6 mg/dL (8.5-10.1); Chloride 98 mmol/L (98-107); Estimated GFR 18.84 (mL/min/1.73m2); Glucose 206 mg/dL (74-106); Magnesium 1.9 mg/dL (1.8-2.4); Potassium 3.3 mmol/L (3.5-5.1); Sodium 134 mmol/L (136-145)
[2023-05-29 04:38] LABS: BUN 101 mg/dL (7-18); Creatine Kinase 1579 U/L (39-308)
[2023-05-29] MEDS: SODIUM BICARBONATE 150 MEQ in DEXTROSE 5%-WATER 850 ML IV (04:51)
[2023-05-29 04:55] LABS: Absolute Lymphocyte Count 2.39 10^3/uL (1.2-3.4); Absolute Monocyte Count 0.32 10^3/uL (0.1-0.8); Absolute Neutrophil Count 13.23 10^3/uL (1.2-6.7); Atypical Lymphocytes % 2; Bands % 2; Platelet Count 78 10^3/uL (130-400)
[2023-05-29] MEDS: Normal Saline Flush 10 ML SYR IVP ×4 (04:55→20:01)
[2023-05-29 04:56] LABS: Diff Comment Manual Differential; RBC Morphology Normal
[2023-05-29 07:50] LABS: Anion Gap 13.7 mmol/L (3-11); CO2 24.3 mmol/L (21.0-32.0); Calcium 8.6 mg/dL (8.5-10.1); Chloride 97 mmol/L (98-107); Estimated GFR 20.36 (mL/min/1.73m2); Glucose 213 mg/dL (74-106); Potassium 3.1 mmol/L (3.5-5.1); Sodium 135 mmol/L (136-145)
[2023-05-29 07:53] LABS: BUN 100 mg/dL (7-18)
[2023-05-29] MEDS: CEFEPIME 1 GM in Normal Saline 50 ML IVPB ×2 (07:53→20:02)
[2023-05-29] MEDS: Pantoprazole 40 MG TABCR PO (07:54)
[2023-05-29] MEDS: Aspirin E.C. 81 MG TABEC PO (07:55)
[2023-05-29] MEDS: Potassium Chloride 20 MEQ TABCR 40 MEQ PO ×3 (07:55→20:05)
[2023-05-29] MEDS: Apixaban 2.5 MG TAB PO ×2 (07:56→20:05)
[2023-05-29 08:41] LABS: Bilirubin Negative (Negative); Blood Large (Negative); Clarity Sl Cloudy (Clear); Glucose Negative (Negative); Ketones Negative (Negative); Leukocyte Esterase Negative (Negative); Nitrite Negative (Negative); Urobilinogen 0.2 mg/dL (Up to 0.2)
[2023-05-29] MEDS: Insulin Aspart 300 UNITS/3 ML PEN SC ×4 (08:47→21:46)
[2023-05-29] MEDS: Lactated Ringers 1,000 ML 150 ML IV ×3 (08:49→22:45)
[2023-05-29 08:51] LABS: Bacteria Negative HPF (Negative); C & S Indicated? No; Crystals Few Amorphous HPF (Negative); Epithelial Cells Few HPF (Negative); Mucus Trace (Negative); RBC 20-50 HPF (0-2); WBC Negative HPF (0-5)
--- NOTE | 2023-05-29 08:51 | PDOC.CMPRO ---
Date of service: 05/29/23 Time of Service: 08:51 Care Management Progress Note Progress Note Text Progress Note Text: S/O:Rob was sitting up in a chair when CM met with him. He was smiling and appeared to be in good spirits. Rob stated that he is feeling better. He ambulated 3 times this morning and is now off the Na bicarb drip. His vital signs are stable and he is afebrile. Rob has been downgraded' to Med-Surg status and will likely move out of the ICU when a bed is available. Rob informed CM that he does not believe he will need any new services when discharged. A: Rob is an 82 year old man admitted on 05/26/23 with sepsis P:Rob remains in the ICU, however he is now Med-Surg status. He will likely be discharged home with no new services when medically cleared by the provider. He will follow up with his PCP and plan of care and transport with family. CM will follow and continue to assess for discharge planning needs.
[2023-05-29] MEDS: Furosemide 20 MG/2 ML VIAL IVP (09:33)
--- NOTE | 2023-05-29 10:12 | CCONE_ITS ---
Date of service: 05/29/23 Time of Service: 10:12 Assessment and Plan Assessment and plan (1) Elevated troponin: Status: Acute Assessment and plan: Patient's troponin elevation appears to be on the basis of sepsis. While I cannot definitively exclude myocarditis I think it is unlikely. If this were truly suspected, cardiac MRI would be necessary. At worst I would consider it a type II non-ST elevation myocardial infarction, but rhabdomyolysis can also cause the troponin to be high I do not think he needs an ischemic evaluation I would recommend continued supportive care as the patient is getting better. In future he will need another echocardiogram as this 1 was technically suboptimal (2) Acute kidney injury superimposed on CKD: Status: Acute Assessment and plan: As above, related to sepsis (3) Severe sepsis: Status: Acute Assessment and plan: I think this is the driving etiology of everything that has gone on with the patient. He is responding to antibiotics and supportive care (4) Atrial fibrillation, chronic: Status: Chronic Assessment and plan: Continue medication for rate control and anticoagulation with apixaban History of Present Illness History of Present Illness Chief Complaint: Confusion fever and shock Narrative: This 82-year-old man presented to the hospital 3 days ago with mental status changes. He was found to have evidence of shock, multiorgan failure, respiratory failure and acute on chronic kidney disease. It was initially entertained that he might have myocarditis or acute coronary syndrome as his troponin was elevated as high as 1161. He has a history of permanent atrial fibrillation. His EKGs did not disclose any acute changes rather continuing to demonstrate left anterior fascicular block, poor R wave progression possible old anterior infarct. He has been treated with supportive care and actually has gotten quite a lot better. He is sitting in the chair today, denies difficulty breathing. He has had no chest pain. He has sporadic vague low back pain which is chronic. His mental status has normalized. He has been treated with cefepime and vancomycin An echocardiogram was performed today. His LV function overall appears within the range of normal with an ejection fraction of 55%. The study was technically suboptimal and regional wall motion abnormalities could not be excluded. Left ventricular wall thickness appeared normal. The aortic valve was calcified. Moderate to severe aortic stenosis was suggested. It has been determined that the patient has rhabdomyolysis which can account for the elevated troponin, worsening of his chronic kidney disease Review of Systems Cardiovascular Cardiovascular: Reports as per HPI, Denies chest pain, Denies lightheadedness, Denies radiating jaw, neck or arm pain, Denies palpitations and Denies dyspnea Respiratory Respiratory: Denies dyspnea Endocrine Endocrine: Denies palpitations PFSH All Active Problems (Updated 05/28/23 @ 09:50 by Tamy Del Valle MD) Rhabdomyolysis (Acute) NSTEMI (non-ST elevated myocardial infarction) (Acute) Discharge planning issues (Acute) DVT prophylaxis (Acute) Septic shock (Acute) [id number] kidney injury (Acute) Elevated LFTs (Acute) Myocarditis (Acute) Cardiogenic shock (Acute) Altered mental state (Acute) Hematuria (Acute) Cardiogenic shock (Acute) Elevated troponin (Acute) Elevated LFTs (Acute) Acute kidney injury superimposed on CKD (Acute) Hypokalemia (Acute) Hyponatremia (Acute) Anemia (Chronic) Severe sepsis (Acute) Heart failure (Acute) Multi-organ failure with heart failure (Acute) Acute lumbar back pain (Acute) De Quervain's tenosynovitis, right (Acute) Osteoarthritis of left knee (Acute) Left knee pain (Acute) Pre-diabetes (Acute) CKD (chronic kidney disease) (Chronic) Venous insufficiency (Acute) Dupuytrens contracture (Chronic ~2016) Hypertension (Chronic) BPH (benign prostatic hyperplasia) (Chronic) Atrial fibrillation, chronic (Chronic ~03/02/21) eliquis began 03/02/21, stress test and echo 03/22/[address] aMldonado Renal insufficiency (Chronic) Dyslipidemia (Chronic) low HL Abdominal obesity and metabolic syndrome (Acute) HTN (hypertension) with goal to be determined (Acute) Medical History Tubular adenoma on colonoscopy 01/02/13, repeat 09/07/18 WNL Hyperkalemia Due to SEBASTIAN inhibitor Normal colonoscopy (09/07/18) 09/07/18 Dr Kurt Ying, [facility], normal, would be repeat in 10 years but due to age, repeat as needed. 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 Walko 01/02/13, 09/07/18 wnl Family History Mother Personal history of malignant neoplasm Father Asthma Social History Smoking/Tobacco Use Status: Never Smoking risk assessment performed?: Yes Alcohol Intake: never Drug use: Never Substance use type: does not use Counseling provided: none (Non Applicable) Adopted: No Caregiver/Support person: No Foster care: No Household members: spouse Housing: house Number of Children: 2 number of grandchildren: 3 Communication Needs: None Education Level: master's degree Do you need help understanding health information?: Never current occupation: Retired Pets and animals: No Sexually active: No Do you think of yourself as: straight/heterosexual Current gender identity: male What is your relationship status?: How often do you talk on the phone with friends or family?: twice per week How often do you get together with friends or relatives?: once per week Do you belong to any clubs or organized social groups?: no Panel score (0-1 are the most socially isolated patients): 2 What type of physical activity do you participate in: walking and other Details: working Duration: > 90 minutes/day Frequency: 5-6 times per week Gail/Shinto: Religious Special gail needs: No Seatbelt use: sometimes Helmet use: No (Never) Drive intox 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: No Do you feel safe at home: Yes Do you feel safe in your relationship?: Yes Exam Const Other: Fairly robust appearing man sitting in chair, looks younger than stated age no acute distress Neck Other: No neck vein distention carotid pulsations are grossly normal I do not hear any transmitted murmur Resp Other: Mildly diminished lung sounds at the bases Cardio Other: Heart is regular rate is about 100 there is a 1/6 to 2/6 systolic ejection quality murmur Skin Other: Warm and dry Extrem Other: 1+ edema Results Last Vital Signs Temp 36.8 C 05/29/23 07:25 Pulse 90 05/29/23 08:00 Resp 19 05/29/23 09:00 BP 128/70 05/29/23 08:00 Pulse Ox 95 05/29/23 08:05 Labs 05/29/23 04:05 05/29/23 07:30 Labs: Laboratory Results - last 24 hr 05/26/23 05/27/23 05/28/23 09:38 15:42 12:55 WBC RBC Hgb Hct MCV MCH MCHC RDW Plt Count MPV Immature Gran % Neutrophils % Band Neutrophils % Lymphocytes % Atypical Lymphs % Monocytes % Eosinophils % Basophils % Nucleated RBC % Absolute Neutrophils Absolute Lymphocytes Absolute Monocytes Absolute Eosinophils Absolute Basophils RBC Morphology VBG pH VBG pCO2 VBG pO2 VBG HCO3 VBG Total CO2 VBG O2 Saturation VBG Base Excess Sodium Potassium Chloride Carbon Dioxide Anion Gap BUN Creatinine Est GFR (CKD-EPI 2020) Glucose Calcium Magnesium Total Bilirubin AST ALT Alkaline Phosphatase Creatine Kinase C-Reactive Protein Total Protein Albumin Urine Color Yellow Urine Clarity Sl Cloudy Urine pH 5.0 Ur Specific [place] 1.015 Urine Protein 30 H Urine Ketones Negative Urine Blood Large H Urine Nitrite Negative Urine Bilirubin Negative Urine Urobilinogen 0.2 Ur Leukocyte Esterase Negative Urine RBC 20-50 H Urine WBC 0-2 Ur Epithelial Cells Rare Urine Crystals Negative Urine Bacteria Few Urine Casts Urine Mucus Trace Ur Culture Indicated? Yes Urine Urea Nitrogen 612 Urine Glucose Negative Adenovirus DNA Negative Human Metapneumovir RNA Negative Parainfluenza 1 (PCR) Negative Parainfluenza 2 (PCR) Negative Parainfluenza 3 (PCR) Negative Parainfluenza 4 (PCR) Negative Resp Viral Spec Desc Not Applicable Rhinovirus (PCR) Negative 05/28/23 05/28/23 05/28/23 13:05 14:57 15:12 WBC RBC Hgb Hct MCV MCH MCHC RDW Plt Count MPV Immature Gran % Neutrophils % Band Neutrophils % Lymphocytes % Atypical Lymphs % Monocytes % Eosinophils % Basophils % Nucleated RBC % Absolute Neutrophils Absolute Lymphocytes Absolute Monocytes Absolute Eosinophils Absolute Basophils RBC Morphology VBG pH 7.40 7.39 VBG pCO2 28 L 29 L VBG pO2 85 86 VBG HCO3 17 L 18 L VBG Total CO2 16 L 16 L VBG O2 Saturation 98 98 VBG Base Excess -8 L -7 L Sodium 132 L Potassium 3.2 L Chloride 98 Carbon Dioxide 18.4 L Anion Gap 15.6 H BUN 101 H* Creatinine 3.5 H Est GFR (CKD-EPI 2020) 16.92 Glucose 218 H Calcium 8.7 Magnesium Total Bilirubin AST ALT Alkaline Phosphatase Creatine Kinase 2426 H 2121 H C-Reactive Protein Total Protein Albumin Urine Color Yellow Urine Clarity Clear Urine pH 5.0 Ur Specific [place] 1.010 Urine Protein 30 H Urine Ketones Negative Urine Blood Large H Urine Nitrite Negative Urine Bilirubin Negative Urine Urobilinogen 0.2 Ur Leukocyte Esterase Negative Urine RBC 10-20 H Urine WBC Negative Ur Epithelial Cells Rare Urine Crystals Moderate Amorphous Urine Bacteria Rare Urine Casts Negative Urine Mucus Negative Ur Culture Indicated? No Urine Urea Nitrogen Urine Glucose Negative Adenovirus DNA Human Metapneumovir RNA Parainfluenza 1 (PCR) Parainfluenza 2 (PCR) Parainfluenza 3 (PCR) Parainfluenza 4 (PCR) Resp Viral Spec Desc Rhinovirus (PCR) 05/28/23 05/28/23 05/28/23 16:00 16:59 17:05 WBC RBC Hgb Hct MCV MCH MCHC RDW Plt Count MPV Immature Gran % Neutrophils % Band Neutrophils % Lymphocytes % Atypical Lymphs % Monocytes % Eosinophils % Basophils % Nucleated RBC % Absolute Neutrophils Absolute Lymphocytes Absolute Monocytes Absolute Eosinophils Absolute Basophils RBC Morphology VBG pH 7.39 VBG pCO2 31 L VBG pO2 59 VBG HCO3 19 L VBG Total CO2 17 L VBG O2 Saturation 92 VBG Base Excess -7 L Sodium Cancelled 133 L Potassium Cancelled 3.3 L Chloride Cancelled 98 Carbon Dioxide Cancelled 19.9 L Anion Gap Cancelled 15.1 H BUN Cancelled 101 H* Creatinine Cancelled 3.6 H* Est GFR (CKD-EPI 2020) Cancelled 16.36 Glucose Cancelled 198 H Calcium Cancelled 8.8 Magnesium Total Bilirubin AST ALT Alkaline Phosphatase Creatine Kinase Cancelled C-Reactive Protein Total Protein Albumin Urine Color Yellow Urine Clarity Clear Urine pH 5.0 Ur Specific [place] 1.015 Urine Protein 30 H Urine Ketones Negative Urine Blood Moderate H Urine Nitrite Negative Urine Bilirubin Negative Urine Urobilinogen 0.2 Ur Leukocyte Esterase Negative Urine RBC 10-20 H Urine WBC Negative Ur Epithelial Cells Rare Urine Crystals Moderate Amorphous Urine Bacteria Rare Urine Casts 0-2 Hyaline Urine Mucus Negative Ur Culture Indicated? No Urine Urea Nitrogen Urine Glucose Negative Adenovirus DNA Human Metapneumovir RNA Parainfluenza 1 (PCR) Parainfluenza 2 (PCR) Parainfluenza 3 (PCR) Parainfluenza 4 (PCR) Resp Viral Spec Desc Rhinovirus (PCR) 05/28/23 05/28/23 05/28/23 18:45 18:50 20:53 WBC RBC Hgb Hct MCV MCH MCHC RDW Plt Count MPV Immature Gran % Neutrophils % Band Neutrophils % Lymphocytes % Atypical Lymphs % Monocytes % Eosinophils % Basophils % Nucleated RBC % Absolute Neutrophils Absolute Lymphocytes Absolute Monocytes Absolute Eosinophils Absolute Basophils RBC Morphology VBG pH 7.40 VBG pCO2 30 L VBG pO2 84 VBG HCO3 19 L VBG Total CO2 17 L VBG O2 Saturation 98 VBG Base Excess -6 L Sodium 131 L Potassium 3.3 L Chloride 97 L Carbon Dioxide 19.3 L Anion Gap 14.7 H BUN 100 H* Creatinine 3.5 H Est GFR (CKD-EPI 2020) 16.92 Glucose 219 H Calcium 8.6 Magnesium Total Bilirubin AST ALT Alkaline Phosphatase Creatine Kinase 1841 H C-Reactive Protein Total Protein Albumin Urine Color Yellow Yellow Urine Clarity Clear Clear Urine pH 5.0 5.0 Ur Specific [place] 1.015 1.015 Urine Protein 100 H 100 H Urine Ketones Negative Negative Urine Blood Moderate H Large H Urine Nitrite Negative Negative Urine Bilirubin Negative Negative Urine Urobilinogen 0.2 0.2 Ur Leukocyte Esterase Negative Negative Urine RBC 10-20 H 20-50 H Urine WBC 0-2 0-2 Ur Epithelial Cells Rare Rare Urine Crystals Few Amorphous Few Amorphous Urine Bacteria Rare Rare Urine Casts 0-2 Hyaline 3-5 Hyaline Urine Mucus Negative Negative Ur Culture Indicated? No No Urine Urea Nitrogen Urine Glucose Negative Negative Adenovirus DNA Human Metapneumovir RNA Parainfluenza 1 (PCR) Parainfluenza 2 (PCR) Parainfluenza 3 (PCR) Parainfluenza 4 (PCR) Resp Viral Spec Desc Rhinovirus (PCR) 05/28/23 05/28/23 05/28/23 21:00 23:38 23:38 WBC RBC Hgb Hct MCV MCH MCHC RDW Plt Count MPV Immature Gran % Neutrophils % Band Neutrophils % Lymphocytes % Atypical Lymphs % Monocytes % Eosinophils % Basophils % Nucleated RBC % Absolute Neutrophils Absolute Lymphocytes Absolute Monocytes Absolute Eosinophils Absolute Basophils RBC Morphology VBG pH 7.48 H 7.43 H VBG pCO2 27 L 33 L VBG pO2 104 83 VBG HCO3 20 L 22 L VBG Total CO2 20 L VBG O2 Saturation 98 VBG Base Excess -4 L -2 Sodium 130 L 133 L Cancelled Potassium 3.5 3.1 L Chloride 96 L Carbon Dioxide 20.0 L Anion Gap 14.0 H BUN 102 H* Creatinine 3.4 H Est GFR (CKD-EPI 2020) 17.52 Glucose 235 H Calcium 8.7 Magnesium Total Bilirubin AST ALT Alkaline Phosphatase Creatine Kinase 1797 H C-Reactive Protein Total Protein Albumin Urine Color Urine Clarity Urine pH Ur Specific [place] Urine Protein Urine Ketones Urine Blood Urine Nitrite Urine Bilirubin Urine Urobilinogen Ur Leukocyte Esterase Urine RBC Urine WBC Ur Epithelial Cells Urine Crystals Urine Bacteria Urine Casts Urine Mucus Ur Culture Indicated? Urine Urea Nitrogen Urine Glucose Adenovirus DNA Human Metapneumovir RNA Parainfluenza 1 (PCR) Parainfluenza 2 (PCR) Parainfluenza 3 (PCR) Parainfluenza 4 (PCR) Resp Viral Spec Desc Rhinovirus (PCR) 05/28/23 05/28/23 05/28/23 23:38 23:38 23:38 WBC RBC Hgb Hct MCV MCH MCHC RDW Plt Count MPV Immature Gran % Neutrophils % Band Neutrophils % Lymphocytes % Atypical Lymphs % Monocytes % Eosinophils % Basophils % Nucleated RBC % Absolute Neutrophils Absolute Lymphocytes Absolute Monocytes Absolute Eosinophils Absolute Basophils RBC Morphology VBG pH VBG pCO2 VBG pO2 VBG HCO3 VBG Total CO2 VBG O2 Saturation VBG Base Excess Sodium Potassium Cancelled Chloride 97 L Cancelled Carbon Dioxide 22.7 Cancelled Anion Gap 13.3 H BUN Creatinine Est GFR (CKD-EPI 2020) Glucose Calcium Magnesium Total Bilirubin AST ALT Alkaline Phosphatase Creatine Kinase C-Reactive Protein Total Protein Albumin Urine Color Urine Clarity Urine pH Ur Specific [place] Urine Protein Urine Ketones Urine Blood Urine Nitrite Urine Bilirubin Urine Urobilinogen Ur Leukocyte Esterase Urine RBC Urine WBC Ur Epithelial Cells Urine Crystals Urine Bacteria Urine Casts Urine Mucus Ur Culture Indicated? Urine Urea Nitrogen Urine Glucose Adenovirus DNA Human Metapneumovir RNA Parainfluenza 1 (PCR) Parainfluenza 2 (PCR) Parainfluenza 3 (PCR) Parainfluenza 4 (PCR) Resp Viral Spec Desc Rhinovirus (PCR) 05/28/23 05/28/23 05/28/23 23:38 23:38 23:38 WBC RBC Hgb Hct MCV MCH MCHC RDW Plt Count MPV Immature Gran % Neutrophils % Band Neutrophils % Lymphocytes % Atypical Lymphs % Monocytes % Eosinophils % Basophils % Nucleated RBC % Absolute Neutrophils Absolute Lymphocytes Absolute Monocytes Absolute Eosinophils Absolute Basophils RBC Morphology VBG pH VBG pCO2 VBG pO2 VBG HCO3 VBG Total CO2 VBG O2 Saturation VBG Base Excess Sodium Potassium Chloride Carbon Dioxide Anion Gap Cancelled BUN 101 H* Cancelled Creatinine 3.3 H Cancelled Est GFR (CKD-EPI 2020) 18.16 Glucose Calcium Magnesium Total Bilirubin AST ALT Alkaline Phosphatase Creatine Kinase C-Reactive Protein Total Protein Albumin Urine Color Urine Clarity Urine pH Ur Specific [place] Urine Protein Urine Ketones Urine Blood Urine Nitrite Urine Bilirubin Urine Urobilinogen Ur Leukocyte Esterase Urine RBC Urine WBC Ur Epithelial Cells Urine Crystals Urine Bacteria Urine Casts Urine Mucus Ur Culture Indicated? Urine Urea Nitrogen Urine Glucose Adenovirus DNA Human Metapneumovir RNA Parainfluenza 1 (PCR) Parainfluenza 2 (PCR) Parainfluenza 3 (PCR) Parainfluenza 4 (PCR) Resp Viral Spec Desc Rhinovirus (PCR) 05/28/23 05/28/23 05/28/23 23:38 23:38 23:38 WBC RBC Hgb Hct MCV MCH MCHC RDW Plt Count MPV Immature Gran % Neutrophils % Band Neutrophils % Lymphocytes % Atypical Lymphs % Monocytes % Eosinophils % Basophils % Nucleated RBC % Absolute Neutrophils Absolute Lymphocytes Absolute Monocytes Absolute Eosinophils Absolute Basophils RBC Morphology VBG pH VBG pCO2 VBG pO2 VBG HCO3 VBG Total CO2 VBG O2 Saturation VBG Base Excess Sodium Potassium Chloride Carbon Dioxide Anion Gap BUN Creatinine Est GFR (CKD-EPI 2020) Cancelled Glucose 225 H Cancelled Calcium 8.6 Cancelled Magnesium Total Bilirubin 0.7 AST 231 H ALT 140 H Alkaline Phosphatase 111 Creatine Kinase C-Reactive Protein Total Protein 6.3 L Albumin 2.6 L Urine Color Urine Clarity Urine pH Ur Specific [place] Urine Protein Urine Ketones Urine Blood Urine Nitrite Urine Bilirubin Urine Urobilinogen Ur Leukocyte Esterase Urine RBC Urine WBC Ur Epithelial Cells Urine Crystals Urine Bacteria Urine Casts Urine Mucus Ur Culture Indicated? Urine Urea Nitrogen Urine Glucose Adenovirus DNA Human Metapneumovir RNA Parainfluenza 1 (PCR) Parainfluenza 2 (PCR) Parainfluenza 3 (PCR) Parainfluenza 4 (PCR) Resp Viral Spec Desc Rhinovirus (PCR) 05/29/23 05/29/23 05/29/23 01:54 02:00 04:00 WBC RBC Hgb Hct MCV MCH MCHC RDW Plt Count MPV Immature Gran % Neutrophils % Band Neutrophils % Lymphocytes % Atypical Lymphs % Monocytes % Eosinophils % Basophils % Nucleated RBC % Absolute Neutrophils Absolute Lymphocytes Absolute Monocytes Absolute Eosinophils Absolute Basophils RBC Morphology VBG pH 7.43 H VBG pCO2 35 L VBG pO2 136 VBG HCO3 23 VBG Total CO2 VBG O2 Saturation VBG Base Excess -2 Sodium 132 L Potassium 3.2 L Chloride 96 L Carbon Dioxide 23.4 Anion Gap 12.6 H BUN 100 H* Creatinine 3.3 H Est GFR (CKD-EPI 2020) 18.16 Glucose 216 H Calcium 8.6 Magnesium Total Bilirubin AST ALT Alkaline Phosphatase Creatine Kinase 1671 H C-Reactive Protein Total Protein Albumin Urine Color Yellow Yellow Urine Clarity Sl Cloudy Sl Cloudy Urine pH 5.0 5.0 Ur Specific [place] 1.015 1.010 Urine Protein 100 H 100 H Urine Ketones Negative Negative Urine Blood Large H Large H Urine Nitrite Negative Negative Urine Bilirubin Negative Negative Urine Urobilinogen 0.2 0.2 Ur Leukocyte Esterase Negative Negative Urine RBC 10-20 H 10-20 H Urine WBC 0-2 0-2 Ur Epithelial Cells Rare Rare Urine Crystals Few Amorphous Negative Urine Bacteria Few Moderate Urine Casts 0-2 Fine Granular 3-5 Fine Granular Urine Mucus Negative Negative Ur Culture Indicated? No Yes Urine Urea Nitrogen Urine Glucose Negative Negative Adenovirus DNA Human Metapneumovir RNA Parainfluenza 1 (PCR) Parainfluenza 2 (PCR) Parainfluenza 3 (PCR) Parainfluenza 4 (PCR) Resp Viral Spec Desc Rhinovirus (PCR) 05/29/23 05/29/23 05/29/23 04:05 07:30 08:23 WBC 15.94 H RBC 3.42 L Hgb 11.0 L Hct 32.0 L MCV 94 MCH 32.2 MCHC 34.4 RDW 14.3 H Plt Count 78 L MPV 12.3 H Immature Gran % 0.0 Neutrophils % 81.0 Band Neutrophils % 2 Lymphocytes % 13.0 Atypical Lymphs % 2 Monocytes % 2.0 Eosinophils % 0.0 Basophils % 0.0 Nucleated RBC % 0.1 Absolute Neutrophils 13.23 H Absolute Lymphocytes 2.39 Absolute Monocytes 0.32 Absolute Eosinophils 0.00 Absolute Basophils 0.00 RBC Morphology Normal VBG pH 7.45 H VBG pCO2 33 L VBG pO2 161 VBG HCO3 23 VBG Total CO2 VBG O2 Saturation VBG Base Excess -1 Sodium 134 L 135 L Potassium 3.3 L 3.1 L Chloride 98 97 L Carbon Dioxide 24.6 24.3 Anion Gap 11.4 H 13.7 H BUN 101 H* 100 H* Creatinine 3.2 H 3.0 H Est GFR (CKD-EPI 2020) 18.84 20.36 Glucose 206 H 213 H Calcium 8.6 8.6 Magnesium 1.9 Total Bilirubin AST ALT Alkaline Phosphatase Creatine Kinase 1579 H C-Reactive Protein 8.54 H Total Protein Albumin Urine Color Yellow Urine Clarity Sl Cloudy Urine pH 5.0 Ur Specific [place] 1.010 Urine Protein 100 H Urine Ketones Negative Urine Blood Large H Urine Nitrite Negative Urine Bilirubin Negative Urine Urobilinogen 0.2 Ur Leukocyte Esterase Negative Urine RBC 20-50 H Urine WBC Negative Ur Epithelial Cells Few Urine Crystals Few Amorphous Urine Bacteria Negative Urine Casts 10-20 Fine Granular Urine Mucus Trace Ur Culture Indicated? No Urine Urea Nitrogen Urine Glucose Negative Adenovirus DNA Human Metapneumovir RNA Parainfluenza 1 (PCR) Parainfluenza 2 (PCR) Parainfluenza 3 (PCR) Parainfluenza 4 (PCR) Resp Viral Spec Desc Rhinovirus (PCR)
--- NOTE | 2023-05-29 10:57 | PGE_ITS ---
Date of Service Date of service: 05/29/23 Time of Service: 10:57 Assessment and Plan Assessment and plan (1) Septic shock: Status: Acute Assessment and plan: Source still unclear. CXR w/o active disease. Could have bronchitis, but I am not convinced he did have a bacterial infection. Off of pressors. D/c vancomycin. Blood cultures x 4 w/ NGTD. Did have an elevated procalcitonin, but could be due to a recent vaccination. Will continue empiric cefepime. Fininshed steroids. Trend procalcitonin. (2) Cardiogenic shock: Status: Acute Assessment and plan: Echo did not get a good look at the wall motion. Does have moderate to severe and pulmonary hypotension. I wonder if the patient was not hypotensive due to volume depletion and not being able to generate enough force to overcome the stenotic aortic valve. Ddx: septic cardiomyopathy vs myocarditis vs a primary ACS or a type 2 NSTEMI. Evaluated by cardiology. No additonal recommendations other than repeating an echocardiogram in the future and not needing further ischemic eval on this admission. Finished heparin gtt. Continue asa. Holding statin in light of rhabdomyolysis. (3) Rhabdomyolysis: Status: Acute Assessment and plan: In setting of a recent influenza vaccine, statin therapy. Improved. Awaiting tick studies as well. RYLAND is improving. Bicarb gtt d/c'ed based on serum bicarb. Continue IVF + furosemide. Trend CPK. Hold statin. (4) Multi-organ failure with heart failure: Status: Acute Assessment and plan: Encephalopathy, CHF, respiratory failure, RYLAND on CKD, transaminitis. Could be due to septic or cardiogenic shock. Transaminitis could be explained by rhabdo and is improving. CHF and respiratory failure are both better. RYLAND is improved. Continue to monitor as we are treating infection, rhabdo. (5) Acute encephalopathy: Status: Resolved Assessment and plan: Mental status has normalized. CT head negative. Suspect this was toxic metabolic encephalopathy in setting of hypotension/vaccine reaction/possible sepsis. No evidence of a meningeal process. (6) Elevated troponin: Status: Acute Assessment and plan: DDx: NSTEMI (type 1 vs type 2), rhyabdomyolysis, myocarditis (less likely). Wall motion could not be assessed on the echo. Will need a repeat echo. Continue asa, hold statin. Finished heparin gtt. Appreciate cardiology opinion. Monitor for blood in stool. (7) Acute hypoxic respiratory failure: Status: Resolved Assessment and plan: Much improved. Etiology: likely pulmonary edema. ?bronchitis. Continue to diurese as we are hydrating for treatment of rhabdomyolysis. (8) Myocarditis: Status: Suspected Assessment and plan: As a consequence of influenza vaccine. (9) Acute kidney injury superimposed on CKD: Status: Acute Assessment and plan: In setting of rhabdomyolysis, shock. FeUrea is 39.8%, consistent with intrinsic renal disease, which both of the above could cause. Continue matching I/Os and trending Cr while treating rhabdomyolysis. (10) Anemia: Status: Chronic Assessment and plan: Is heme positive, but the amount of bleeding and its appearance suggest a hemorrhoidal source. Continue to monitor. Would not stop anticoagulation at this time. (11) Hyponatremia: Status: Acute Assessment and plan: relatively stable MOnitor with hydration + diuresis. (12) Hypokalemia: Status: Acute Assessment and plan: replete; Recheck in am (13) Elevated LFTs: Status: Acute Assessment and plan: In setting of shock but also rhabdomyolysis. Statin d/c'ed. Treat rhabdo - this is improving. CT w/ normal density and no measurable mass. Gallbladder w/o calculus or dilation. (14) Hematuria: Status: Acute Assessment and plan: Suspect traumatic insertion. Clinically this is better. Montior. (15) Atrial fibrillation, chronic: Status: Chronic Assessment and plan: Rate controlled. Transitioned to renally dosed eliquis tonight. Continue cardiac monitoring. (16) DVT prophylaxis: Status: Acute Assessment and plan: On renally dosed apixaban (17) Discharge planning issues: Status: Acute Assessment and plan: Full code PT consulted. Transferred out of the ICU to the medical surgical floor. Discussed with Dr Mix. Subjective Subjective Interval history since last seen: Mr Rivera states that he is feeling a little bit better. The cough is a little better. Back pain is a bit better ( states his back pain is chronic). His tells us that the patient did slip to the ground at home and was on the floor for about an hour unable to get up. He still feels unsteady when getting up - this is not his normal. Denies CP, SOB, n/v. Constipated. Poor appetite. Transferred to the medical surgical floor. Exam Narrative Exam Narrative: General: Pleasant elderly male who is sitting up in a chair, A&Ox3, looks better, on RA. HEENT: EOMI, MMM Heart: irregularly irregular, + DEYANIRA Lungs: CTAB Abdomen: soft, nontender, nondistended Extremities: +1 edema BLEs Objective Last Vital Signs Temp 36.8 C 05/29/23 07:25 Pulse 90 05/29/23 08:00 Resp 19 05/29/23 09:00 BP 128/70 05/29/23 08:00 Pulse Ox 95 05/29/23 08:05 Laboratory Results - last 24 hr 05/26/23 05/27/23 05/28/23 09:38 15:42 12:55 WBC RBC Hgb Hct MCV MCH MCHC RDW Plt Count MPV Immature Gran % Neutrophils % Band Neutrophils % Lymphocytes % Atypical Lymphs % Monocytes % Eosinophils % Basophils % Nucleated RBC % Absolute Neutrophils Absolute Lymphocytes Absolute Monocytes Absolute Eosinophils Absolute Basophils RBC Morphology VBG pH VBG pCO2 VBG pO2 VBG HCO3 VBG Total CO2 VBG O2 Saturation VBG Base Excess Sodium Potassium Chloride Carbon Dioxide Anion Gap BUN Creatinine Est GFR (CKD-EPI 2020) Glucose Calcium Magnesium Total Bilirubin AST ALT Alkaline Phosphatase Creatine Kinase C-Reactive Protein Total Protein Albumin Urine Color Yellow Urine Clarity Sl Cloudy Urine pH 5.0 Ur Specific [place] 1.015 Urine Protein 30 H Urine Ketones Negative Urine Blood Large H Urine Nitrite Negative Urine Bilirubin Negative Urine Urobilinogen 0.2 Ur Leukocyte Esterase Negative Urine RBC 20-50 H Urine WBC 0-2 Ur Epithelial Cells Rare Urine Crystals Negative Urine Bacteria Few Urine Casts Urine Mucus Trace Ur Culture Indicated? Yes Urine Urea Nitrogen 612 Urine Glucose Negative Adenovirus DNA Negative Human Metapneumovir RNA Negative Parainfluenza 1 (PCR) Negative Parainfluenza 2 (PCR) Negative Parainfluenza 3 (PCR) Negative Parainfluenza 4 (PCR) Negative Resp Viral Spec Desc Not Applicable Rhinovirus (PCR) Negative 05/28/23 05/28/23 05/28/23 13:05 14:57 15:12 WBC RBC Hgb Hct MCV MCH MCHC RDW Plt Count MPV Immature Gran % Neutrophils % Band Neutrophils % Lymphocytes % Atypical Lymphs % Monocytes % Eosinophils % Basophils % Nucleated RBC % Absolute Neutrophils Absolute Lymphocytes Absolute Monocytes Absolute Eosinophils Absolute Basophils RBC Morphology VBG pH 7.40 7.39 VBG pCO2 28 L 29 L VBG pO2 85 86 VBG HCO3 17 L 18 L VBG Total CO2 16 L 16 L VBG O2 Saturation 98 98 VBG Base Excess -8 L -7 L Sodium 132 L Potassium 3.2 L Chloride 98 Carbon Dioxide 18.4 L Anion Gap 15.6 H BUN 101 H* Creatinine 3.5 H Est GFR (CKD-EPI 2020) 16.92 Glucose 218 H Calcium 8.7 Magnesium Total Bilirubin AST ALT Alkaline Phosphatase Creatine Kinase 2426 H 2121 H C-Reactive Protein Total Protein Albumin Urine Color Yellow Urine Clarity Clear Urine pH 5.0 Ur Specific [place] 1.010 Urine Protein 30 H Urine Ketones Negative Urine Blood Large H Urine Nitrite Negative Urine Bilirubin Negative Urine Urobilinogen 0.2 Ur Leukocyte Esterase Negative Urine RBC 10-20 H Urine WBC Negative Ur Epithelial Cells Rare Urine Crystals Moderate Amorphous Urine Bacteria Rare Urine Casts Negative Urine Mucus Negative Ur Culture Indicated? No Urine Urea Nitrogen Urine Glucose Negative Adenovirus DNA Human Metapneumovir RNA Parainfluenza 1 (PCR) Parainfluenza 2 (PCR) Parainfluenza 3 (PCR) Parainfluenza 4 (PCR) Resp Viral Spec Desc Rhinovirus (PCR) 05/28/23 05/28/23 05/28/23 16:59 17:05 18:45 WBC RBC Hgb Hct MCV MCH MCHC RDW Plt Count MPV Immature Gran % Neutrophils % Band Neutrophils % Lymphocytes % Atypical Lymphs % Monocytes % Eosinophils % Basophils % Nucleated RBC % Absolute Neutrophils Absolute Lymphocytes Absolute Monocytes Absolute Eosinophils Absolute Basophils RBC Morphology VBG pH 7.39 VBG pCO2 31 L VBG pO2 59 VBG HCO3 19 L VBG Total CO2 17 L VBG O2 Saturation 92 VBG Base Excess -7 L Sodium 133 L Potassium 3.3 L Chloride 98 Carbon Dioxide 19.9 L Anion Gap 15.1 H BUN 101 H* Creatinine 3.6 H* Est GFR (CKD-EPI 2020) 16.36 Glucose 198 H Calcium 8.8 Magnesium Total Bilirubin AST ALT Alkaline Phosphatase Creatine Kinase C-Reactive Protein Total Protein Albumin Urine Color Yellow Yellow Urine Clarity Clear Clear Urine pH 5.0 5.0 Ur Specific [place] 1.015 1.015 Urine Protein 30 H 100 H Urine Ketones Negative Negative Urine Blood Moderate H Moderate H Urine Nitrite Negative Negative Urine Bilirubin Negative Negative Urine Urobilinogen 0.2 0.2 Ur Leukocyte Esterase Negative Negative Urine RBC 10-20 H 10-20 H Urine WBC Negative 0-2 Ur Epithelial Cells Rare Rare Urine Crystals Moderate Amorphous Few Amorphous Urine Bacteria Rare Rare Urine Casts 0-2 Hyaline 0-2 Hyaline Urine Mucus Negative Negative Ur Culture Indicated? No No Urine Urea Nitrogen Urine Glucose Negative Negative Adenovirus DNA Human Metapneumovir RNA Parainfluenza 1 (PCR) Parainfluenza 2 (PCR) Parainfluenza 3 (PCR) Parainfluenza 4 (PCR) Resp Viral Spec Desc Rhinovirus (PCR) 05/28/23 05/28/23 05/28/23 18:50 20:53 21:00 WBC RBC Hgb Hct MCV MCH MCHC RDW Plt Count MPV Immature Gran % Neutrophils % Band Neutrophils % Lymphocytes % Atypical Lymphs % Monocytes % Eosinophils % Basophils % Nucleated RBC % Absolute Neutrophils Absolute Lymphocytes Absolute Monocytes Absolute Eosinophils Absolute Basophils RBC Morphology VBG pH 7.40 7.48 H VBG pCO2 30 L 27 L VBG pO2 84 104 VBG HCO3 19 L 20 L VBG Total CO2 17 L VBG O2 Saturation 98 VBG Base Excess -6 L -4 L Sodium 131 L 130 L Potassium 3.3 L 3.5 Chloride 97 L 96 L Carbon Dioxide 19.3 L 20.0 L Anion Gap 14.7 H 14.0 H BUN 100 H* 102 H* Creatinine 3.5 H 3.4 H Est GFR (CKD-EPI 2020) 16.92 17.52 Glucose 219 H 235 H Calcium 8.6 8.7 Magnesium Total Bilirubin AST ALT Alkaline Phosphatase Creatine Kinase 1841 H 1797 H C-Reactive Protein Total Protein Albumin Urine Color Yellow Urine Clarity Clear Urine pH 5.0 Ur Specific [place] 1.015 Urine Protein 100 H Urine Ketones Negative Urine Blood Large H Urine Nitrite Negative Urine Bilirubin Negative Urine Urobilinogen 0.2 Ur Leukocyte Esterase Negative Urine RBC 20-50 H Urine WBC 0-2 Ur Epithelial Cells Rare Urine Crystals Few Amorphous Urine Bacteria Rare Urine Casts 3-5 Hyaline Urine Mucus Negative Ur Culture Indicated? No Urine Urea Nitrogen Urine Glucose Negative Adenovirus DNA Human Metapneumovir RNA Parainfluenza 1 (PCR) Parainfluenza 2 (PCR) Parainfluenza 3 (PCR) Parainfluenza 4 (PCR) Resp Viral Spec Desc Rhinovirus (PCR) 05/28/23 05/28/2305/28/23 23:38 23:38 23:38 WBC RBC Hgb Hct MCV MCH MCHC RDW Plt Count MPV Immature Gran % Neutrophils % Band Neutrophils % Lymphocytes % Atypical Lymphs % Monocytes % Eosinophils % Basophils % Nucleated RBC % Absolute Neutrophils Absolute Lymphocytes Absolute Monocytes Absolute Eosinophils Absolute Basophils RBC Morphology VBG pH 7.43 H VBG pCO2 33 L VBG pO2 83 VBG HCO3 22 L VBG Total CO2 20 L VBG O2 Saturation 98 VBG Base Excess -2 Sodium 133 L Cancelled Potassium 3.1 L Cancelled Chloride 97 L Carbon Dioxide Anion Gap BUN Creatinine Est GFR (CKD-EPI 2020) Glucose Calcium Magnesium Total Bilirubin AST ALT Alkaline Phosphatase Creatine Kinase C-Reactive Protein Total Protein Albumin Urine Color Urine Clarity Urine pH Ur Specific [place] Urine Protein Urine Ketones Urine Blood Urine Nitrite Urine Bilirubin Urine Urobilinogen Ur Leukocyte Esterase Urine RBC Urine WBC Ur Epithelial Cells Urine Crystals Urine Bacteria Urine Casts Urine Mucus Ur Culture Indicated? Urine Urea Nitrogen Urine Glucose Adenovirus DNA Human Metapneumovir RNA Parainfluenza 1 (PCR) Parainfluenza 2 (PCR) Parainfluenza 3 (PCR) Parainfluenza 4 (PCR) Resp Viral Spec Desc Rhinovirus (PCR) 05/28/23 05/28/23 05/28/23 23:38 23:38 23:38 WBC RBC Hgb Hct MCV MCH MCHC RDW Plt Count MPV Immature Gran % Neutrophils % Band Neutrophils % Lymphocytes % Atypical Lymphs % Monocytes % Eosinophils % Basophils % Nucleated RBC % Absolute Neutrophils Absolute Lymphocytes Absolute Monocytes Absolute Eosinophils Absolute Basophils RBC Morphology VBG pH VBG pCO2 VBG pO2 VBG HCO3 VBG Total CO2 VBG O2 Saturation VBG Base Excess Sodium Potassium Chloride Cancelled Carbon Dioxide 22.7 Cancelled Anion Gap 13.3 H Cancelled BUN 101 H* Creatinine Est GFR (CKD-EPI 2020) Glucose Calcium Magnesium Total Bilirubin AST ALT Alkaline Phosphatase Creatine Kinase C-Reactive Protein Total Protein Albumin Urine Color Urine Clarity Urine pH Ur Specific [place] Urine Protein Urine Ketones Urine Blood Urine Nitrite Urine Bilirubin Urine Urobilinogen Ur Leukocyte Esterase Urine RBC Urine WBC Ur Epithelial Cells Urine Crystals Urine Bacteria Urine Casts Urine Mucus Ur Culture Indicated? Urine Urea Nitrogen Urine Glucose Adenovirus DNA Human Metapneumovir RNA Parainfluenza 1 (PCR) Parainfluenza 2 (PCR) Parainfluenza 3 (PCR) Parainfluenza 4 (PCR) Resp Viral Spec Desc Rhinovirus (PCR) 05/28/23 05/28/23 05/28/23 23:38 23:38 23:38 WBC RBC Hgb Hct MCV MCH MCHC RDW Plt Count MPV Immature Gran % Neutrophils % Band Neutrophils % Lymphocytes % Atypical Lymphs % Monocytes % Eosinophils % Basophils % Nucleated RBC % Absolute Neutrophils Absolute Lymphocytes Absolute Monocytes Absolute Eosinophils Absolute Basophils RBC Morphology VBG pH VBG pCO2 VBG pO2 VBG HCO3 VBG Total CO2 VBG O2 Saturation VBG Base Excess Sodium Potassium Chloride Carbon Dioxide Anion Gap BUN Cancelled Creatinine 3.3 H Cancelled Est GFR (CKD-EPI 2020) 18.16 Cancelled Glucose 225 H Calcium Magnesium Total Bilirubin AST ALT Alkaline Phosphatase Creatine Kinase C-Reactive Protein Total Protein Albumin Urine Color Urine Clarity Urine pH Ur Specific [place] Urine Protein Urine Ketones Urine Blood Urine Nitrite Urine Bilirubin Urine Urobilinogen Ur Leukocyte Esterase Urine RBC Urine WBC Ur Epithelial Cells Urine Crystals Urine Bacteria Urine Casts Urine Mucus Ur Culture Indicated? Urine Urea Nitrogen Urine Glucose Adenovirus DNA Human Metapneumovir RNA Parainfluenza 1 (PCR) Parainfluenza 2 (PCR) Parainfluenza 3 (PCR) Parainfluenza 4 (PCR) Resp Viral Spec Desc Rhinovirus (PCR) 05/28/23 05/28/23 05/29/23 23:38 23:38 01:54 WBC RBC Hgb Hct MCV MCH MCHC RDW Plt Count MPV Immature Gran % Neutrophils % Band Neutrophils % Lymphocytes % Atypical Lymphs % Monocytes % Eosinophils % Basophils % Nucleated RBC % Absolute Neutrophils Absolute Lymphocytes Absolute Monocytes Absolute Eosinophils Absolute Basophils RBC Morphology VBG pH VBG pCO2 VBG pO2 VBG HCO3 VBG Total CO2 VBG O2 Saturation VBG Base Excess Sodium Potassium Chloride Carbon Dioxide Anion Gap BUN Creatinine Est GFR (CKD-EPI 2020) Glucose Cancelled Calcium 8.6 Cancelled Magnesium Total Bilirubin 0.7 AST 231 H ALT 140 H Alkaline Phosphatase 111 Creatine Kinase C-Reactive Protein Total Protein 6.3 L Albumin 2.6 L Urine Color Yellow Urine Clarity Sl Cloudy Urine pH 5.0 Ur Specific [place] 1.015 Urine Protein 100 H Urine Ketones Negative Urine Blood Large H Urine Nitrite Negative Urine Bilirubin Negative Urine Urobilinogen 0.2 Ur Leukocyte Esterase Negative Urine RBC 10-20 H Urine WBC 0-2 Ur Epithelial Cells Rare Urine Crystals Few Amorphous Urine Bacteria Few Urine Casts 0-2 Fine Granular Urine Mucus Negative Ur Culture Indicated? No Urine Urea Nitrogen Urine Glucose Negative Adenovirus DNA Human Metapneumovir RNA Parainfluenza 1 (PCR) Parainfluenza 2 (PCR) Parainfluenza 3 (PCR) Parainfluenza 4 (PCR) Resp Viral Spec Desc Rhinovirus (PCR) 05/29/23 05/29/23 05/29/23 02:00 04:00 04:05 WBC 15.94 H RBC 3.42 L Hgb 11.0 L Hct 32.0 L MCV 94 MCH 32.2 MCHC 34.4 RDW 14.3 H Plt Count 78 L MPV 12.3 H Immature Gran % 0.0 Neutrophils % 81.0 Band Neutrophils % 2 Lymphocytes % 13.0 Atypical Lymphs % 2 Monocytes % 2.0 Eosinophils % 0.0 Basophils % 0.0 Nucleated RBC % 0.1 Absolute Neutrophils 13.23 H Absolute Lymphocytes 2.39 Absolute Monocytes 0.32 Absolute Eosinophils 0.00 Absolute Basophils 0.00 RBC Morphology Normal VBG pH 7.43 H 7.45 H VBG pCO2 35 L 33 L VBG pO2 136 161 VBG HCO3 23 23 VBG Total CO2 VBG O2 Saturation VBG Base Excess -2 -1 Sodium 132 L 134 L Potassium 3.2 L 3.3 L Chloride 96 L 98 Carbon Dioxide 23.4 24.6 Anion Gap 12.6 H 11.4 H BUN 100 H* 101 H* Creatinine 3.3 H 3.2 H Est GFR (CKD-EPI 2020) 18.16 18.84 Glucose 216 H 206 H Calcium 8.6 8.6 Magnesium 1.9 Total Bilirubin AST ALT Alkaline Phosphatase Creatine Kinase 1671 H 1579 H C-Reactive Protein 8.54 H Total Protein Albumin Urine Color Yellow Urine Clarity Sl Cloudy Urine pH 5.0 Ur Specific [place] 1.010 Urine Protein 100 H Urine Ketones Negative Urine Blood Large H Urine Nitrite Negative Urine Bilirubin Negative Urine Urobilinogen 0.2 Ur Leukocyte Esterase Negative Urine RBC 10-20 H Urine WBC 0-2 Ur Epithelial Cells Rare Urine Crystals Negative Urine Bacteria Moderate Urine Casts 3-5 Fine Granular Urine Mucus Negative Ur Culture Indicated? Yes Urine Urea Nitrogen Urine Glucose Negative Adenovirus DNA Human Metapneumovir RNA Parainfluenza 1 (PCR) Parainfluenza 2 (PCR) Parainfluenza 3 (PCR) Parainfluenza 4 (PCR) Resp Viral Spec Desc Rhinovirus (PCR) 05/29/23 05/29/23 07:30 08:23 WBC RBC Hgb Hct MCV MCH MCHC RDW Plt Count MPV Immature Gran % Neutrophils % Band Neutrophils % Lymphocytes % Atypical Lymphs % Monocytes % Eosinophils % Basophils % Nucleated RBC % Absolute Neutrophils Absolute Lymphocytes Absolute Monocytes Absolute Eosinophils Absolute Basophils RBC Morphology VBG pH VBG pCO2 VBG pO2 VBG HCO3 VBG Total CO2 VBG O2 Saturation VBG Base Excess Sodium 135 L Potassium 3.1 L Chloride 97 L Carbon Dioxide 24.3 Anion Gap 13.7 H BUN 100 H* Creatinine 3.0 H Est GFR (CKD-EPI 2020) 20.36 Glucose 213 H Calcium 8.6 Magnesium Total Bilirubin AST ALT Alkaline Phosphatase Creatine Kinase C-Reactive Protein Total Protein Albumin Urine Color Yellow Urine Clarity Sl Cloudy Urine pH 5.0 Ur Specific [place] 1.010 Urine Protein 100 H Urine Ketones Negative Urine Blood Large H Urine Nitrite Negative Urine Bilirubin Negative Urine Urobilinogen 0.2 Ur Leukocyte Esterase Negative Urine RBC 20-50 H Urine WBC Negative Ur Epithelial Cells Few Urine Crystals Few Amorphous Urine Bacteria Negative Urine Casts 10-20 Fine Granular Urine Mucus Trace Ur Culture Indicated? No Urine Urea Nitrogen Urine Glucose Negative Adenovirus DNA Human Metapneumovir RNA Parainfluenza 1 (PCR) Parainfluenza 2 (PCR) Parainfluenza 3 (PCR) Parainfluenza 4 (PCR) Resp Viral Spec Desc Rhinovirus (PCR) Objective Narrative Objective Narrative: Echo; Technically limited and suboptimal study Left ventricle appears grossly normal in size wall thickness and systolic function. This study is not adequate to assess for wall motion abnormalities Grossly normal right ventricular size and function Both atria are dilated Aortic valve is calcified. Unable to determine number of leaflets. There is moderate to severe aortic stenosis. Peak gradient is 55, mean 30 mmHg. Calculated aortic valve area is 0.6 cm??. There is trace aortic regurgitation Normal tricuspid valve with mild to moderate regurgitation. Estimated right ventricular systolic pressure is 44 mmHg Time Spent with Patient Time Spent with Patient: 35-49 minutes Time was spent: preparing to see the patient(eg.review tests), obtaining and/or reviewing separately otained hiistory, ordering medications,tests, procedures, referring, communicating with other health director of health care marketing, indepentently interpreting results, counseling the patient and care coordination
--- NOTE | 2023-05-29 12:05 | PT.INTREAT ---
Date of service: 05/29/23 Time of Service: 10:54 PT Notes Visit Reasons: Severe Sepsis without Source Inpatient Physical Therapy Treatment Note [facility] Date: 05/29/23 PRECAUTIONS: Fall, standard, activity as tolerated SUBJECTIVE: Patient reports Well I think I feel pretty good! OBJECTIVE: Sitting up in chair. Family member visiting, seated EOB. IV in place, LUE. Telemetry in place. Coates in place.? PAIN: none reported. VITALS: Closely monitored by nursing staff via telemetry. Highest HR noted by this clinician during ambulation 122. Recovered quickly even during ambulation. ? ? ? BED MOBILITY/TRANSFERS? Rolling L/R: not assessed Supine-sit: not assessed ? Sit-supine: not assessed ? Sit-stand: SBA ? Stand-sit: SBA ? Bed-Chair: SBA ? Chair-bed: SBA Gait Training ([id number]): Direct one-on-one instruction and skilled instruction in: [] employing an assistive device [] modified weight-bearing status [x] movement sequencing [] turning and movement with proper form [] Provided verbal cues for equipment management and technique [x] Provided instruction in gait pattern [] Patient education regarding pacing and breathing techniques to maximize activity tolerance? GAIT? Assistive Device: FWW? Weight bearing: full Assist: CGA, assist managing IV, telemetry, Coates ? Distance:? 300 feet? Deviation: Gait unremarkable.? STAIRS: Ascends and descends 2 six inch stairs and 3 four inch stairs, with bilateral rails, CGA, second staff person to assist with IV pole and telemetry. ? Therapeutic Exercises ([id number]): Direct one-on-one instruction in therapeutic exercises to develop strength, endurance, range of motion and flexibility. ? Exercises Ambulation ? Assistive Device: FWW? Weight bearing: full Assist: CGA, assist managing IV, telemetry leads, Coates. ? Distance:? 130 feet, seated rest, 211 feet. ? Deviation: Gait, posture unremarkable. Patient does not use a walker at baseline. ? Provided skilled instruction in proper exercise performance Provided skilled manual cues to facilitate proper muscle recruitment and/or form. ASSESSMENT:? Patient tolerates therapy well, indicates no increase in fatigue, feels as though he could probably do a little more, but wants to save it for PM therapy session. PLAN: Continue global strengthening per plan of care until patient is medically cleared for discharge. TREATMENT CODE/TIME: 30 minutes beginning at 10:54 and 16 minutes beginning at 13:15
[2023-05-29 12:38] LABS: Lyme Ab w Rflx to Lyme Confirm Positive (Negative)
[2023-05-29 13:31] LABS: Anion Gap 13.3 mmol/L (3-11); CO2 23.7 mmol/L (21.0-32.0); Calcium 9.2 mg/dL (8.5-10.1); Chloride 96 mmol/L (98-107); Estimated GFR 20.36 (mL/min/1.73m2); Glucose 192 mg/dL (74-106); Potassium 3.1 mmol/L (3.5-5.1); Sodium 133 mmol/L (136-145)
[2023-05-29 13:34] LABS: BUN 98 mg/dL (7-18)
[2023-05-29] MEDS: Docusate Sodium 100 MG CAP PO (14:24)
[2023-05-29] MEDS: Polyethylene Glycol 3350 17 GM PACKET PO (14:24)
[2023-05-29 14:51] LABS: ANCA Interpretation Negative (Negative)
[2023-05-29 14:54] LABS: ANA Interpretation Positive (Negative); ANA Titer Pattern 1:80 Speckled
[2023-05-30] VITALS (9 sets, daily range): BP systolic 118–157; BP diastolic 69–80; PULSE 82–177; RESP 17–20; TEMP 36.2–37.6; O2SAT 92–95
[2023-05-30] MEDS: Lactated Ringers 1,000 ML 150 ML IV ×3 (04:38→17:44)
[2023-05-30 07:07] LABS: Abs Immature Grans 0.18 10^3/uL (0.0-0.06); HCT 30.7 % (40.0-50.0); HGB 10.8 g/dL (13.5-17.5); MCH 32.7 pg (27.0-33.0); MCHC 35.2 % (32.0-36.0); MCV 93 fL (80-95); MPV 12.3 fL (8.0-11.0); Platelet Count 101 10^3/uL (130-400); RDW 14.1 % (11.8-14.1); RDW-SD 48.5 fL; WBC 19.15 10^3/uL (4.4-10.8)
[2023-05-30 07:35] LABS: Anion Gap 10.9 mmol/L (3-11); C-Reactive Protein 5.26 mg/dL (0.0-0.3); CO2 24.1 mmol/L (21.0-32.0); CREATININE 2.6 mg/dL (0.70-1.30); Chloride 100 mmol/L (98-107); Creatine Kinase 583 U/L (39-308); Estimated GFR 24.17 (mL/min/1.73m2); Glucose 166 mg/dL (74-106); Magnesium 1.9 mg/dL (1.8-2.4); Potassium 3.7 mmol/L (3.5-5.1); Sodium 135 mmol/L (136-145)
[2023-05-30 07:37] LABS: ALT 185 U/L (16-63); AST 188 U/L (15-37); Absolute Neutrophil Count 15.13 10^3/uL (1.2-6.7); Albumin 2.7 g/dL (3.4-5.0); Alkaline Phosphatase 105 U/L (46-116); Bands % 0; Bilirubin, Direct 0.4 mg/dL (0.0-0.2); Bilirubin, Total 0.9 mg/dL (0.2-1.0); Total Protein 6.3 g/dL (6.4-8.2)
[2023-05-30 07:38] LABS: Absolute Lymphocyte Count 3.64 10^3/uL (1.2-3.4); Atypical Lymphocytes % 3; BUN 97 mg/dL (7-18)
[2023-05-30 07:39] LABS: Diff Comment Manual Differential; Metamyelocytes % 1; Other Cells % 1; RBC Morphology Normal
[2023-05-30 07:40] LABS: Procalcitonin 0.8 ng/mL
[2023-05-30] MEDS: Normal Saline Flush 10 ML SYR IVP ×4 (08:07→19:48)
[2023-05-30] MEDS: Pantoprazole 40 MG TABCR PO (08:09)
[2023-05-30] MEDS: CEFEPIME 1 GM in Normal Saline 50 ML IVPB ×2 (08:09→19:51)
[2023-05-30] MEDS: Potassium Chloride 20 MEQ TABCR 40 MEQ PO (08:10)
[2023-05-30] MEDS: Apixaban 2.5 MG TAB PO ×2 (08:10→19:47)
[2023-05-30] MEDS: Aspirin E.C. 81 MG TABEC PO (08:11)
[2023-05-30] MEDS: Insulin Aspart 300 UNITS/3 ML PEN SC ×4 (08:13→21:17)
--- NOTE | 2023-05-30 09:00 | RT.EKG_ITS ---
APPROVED REPORT Exam: Resting ECG Reason for Exam: Rapid Afib Patient Location: I HR:93 bpm ECG Measurements Heart Rate [address] [id number] P [id number] QRSd 114 QRS -39 QT 420 T 90 QTc 523 Conclusion Atrial fibrillation...V-rate 75-121, irreg A-activity Borderline IVCD with LAD...QRSd >112mS, axis(-90,-30) Left axis Prolonged QT interval...QTc >500mS
[2023-05-30] MEDS: Metoprolol 5 MG/5 ML VIAL IVP (09:15)
--- NOTE | 2023-05-30 09:22 | W.PM.PROGNOT ---
Date of Service Date of service: 05/30/23 Time of Service: 09:22 Assessment and Plan Assessment and plan (1) Atrial fibrillation, chronic: Status: Chronic Assessment and plan: Rapid response today for rapid Afib - metoprolol resumed and rates are now controlled. Transitioned to renally dosed eliquis. Continue cardiac monitoring. (2) Anaplasmosis: Status: Acute Assessment and plan: Probably responsible for the shock, respiratory symptoms, rhabdomyolysis, RYLAND - the entire presentation. Patient started on doxycycline. Continue for 2 weeks. Monitor for Herxheimer reaction. (3) Septic shock: Status: Resolved Assessment and plan: Source still unclear. CXR w/o active disease. Could have bronchitis, but I am not convinced he did have a bacterial infection. Off of pressors. Vancomycin d/c'ed yesterday. Continue d/c'ing cefepime after full 5 days of therapy (tomorrow). Blood cultures x 4 w/ NGTD. Did have an elevated procalcitonin, but could be due to a recent vaccination or due to the anaplasmosis. Will continue empiric cefepime. Fininshed steroids. Trend procalcitonin. (4) Cardiogenic shock: Status: Suspected Assessment and plan: Echo did not get a good look at the wall motion. Does have moderate to severe and pulmonary hypotension. I wonder if the patient was not hypotensive due to volume depletion and not being able to generate enough force to overcome the stenotic aortic valve. Ddx: septic cardiomyopathy vs myocarditis vs a primary ACS or a type 2 NSTEMI. Evaluated by cardiology. No additonal recommendations other than repeating an echocardiogram in the future and not needing further ischemic eval on this admission. Finished heparin gtt. Continue asa. Holding statin in light of rhabdomyolysis. (5) Rhabdomyolysis: Status: Acute Assessment and plan: In setting of a recent influenza vaccine, statin therapy, anaplasmosis. Improved. RYLAND is improving. D/c IVF as CPK is sufficiently low. Will give one more dose of furosemide. Trend CPK. Hold statin. (6) Multi-organ failure with heart failure: Status: Acute Assessment and plan: Encephalopathy, CHF, respiratory failure, RYLAND on CKD, transaminitis. Could be due to septic or cardiogenic shock or anaplasmosis. Transaminitis could be explained by rhabdo and is improving. CHF and respiratory failure are both better. RYLAND is improved. Continue to monitor as we are treating infection, rhabdo. (7) Acute encephalopathy: Status: Resolved Assessment and plan: Mental status has normalized. CT head negative. Suspect this was toxic metabolic encephalopathy in setting of hypotension/vaccine reaction/possible sepsis or anaplasmosis. No evidence of a meningeal process. (8) Elevated troponin: Status: Acute Assessment and plan: DDx: NSTEMI (type 1 vs type 2), rhyabdomyolysis, myocarditis (less likely). Wall motion could not be assessed on the echo. Will need a repeat echo. Continue asa, hold statin. Finished heparin gtt. Appreciate cardiology opinion. Monitor for blood in stool. (9) Acute hypoxic respiratory failure: Status: Resolved Assessment and plan: Much improved. Etiology: likely pulmonary edema. ?bronchitis. ?anaplasmosis. Wheezing I think is cardiogenic. Will give 1 more dose of furosemide. (10) Myocarditis: Status: Suspected Assessment and plan: As a consequence of influenza vaccine or a tick-borne illness. As above. Finished a burst of steroids. (11) Acute kidney injury superimposed on CKD: Status: Acute Assessment and plan: In setting of rhabdomyolysis, shock. FeUrea is 39.8%, consistent with intrinsic renal disease, which both of the above could cause. Continue matching I/Os and trending Cr while treating rhabdomyolysis. (12) Anemia: Status: Chronic Assessment and plan: Is heme positive, but the amount of bleeding and its appearance suggest a hemorrhoidal source. Continue to monitor. Would not stop anticoagulation at this time. (13) Hyponatremia: Status: Acute Assessment and plan: relatively stable Monitor w/ disontinuation of IVF. (14) Hypokalemia: Status: Resolved Assessment and plan: Recheck in am (15) Elevated LFTs: Status: Acute Assessment and plan: In setting of shock but also rhabdomyolysis. Statin d/c'ed. Treat rhabdo - this is improving. CT w/ normal density and no measurable mass. Gallbladder w/o calculus or dilation. (16) Hematuria: Status: Acute Assessment and plan: Suspect traumatic insertion. Worse today - additional trauma today. rangel discontinued. Urology consult placed. Monitor for retention. (17) DVT prophylaxis: Status: Acute Assessment and plan: On renally dosed apixaban (18) Discharge planning issues: Status: Acute Assessment and plan: Full code PT consulted. Subjective Subjective Interval history since last seen: Mr Miguel had a rapid response called today when his HR went up to 170s (Afib) this morning around the time he had to go to the bathroom to have a bowel movement. Having a bowel movement did not slow down his rate. The patient was asymptoamtic and had an SBP in 150s during the episode. His BB had been on hold since his admission due to his presentation with low BPs. He received 5 mg of IV lopressor during the episode which effectively slowed down his HR. His metoprolol is being resumed. Nursing notes blood in his rangel and think that perhaps it got tugged on. He feels well. Denies dizziness, CP, SOB, n/v. He does endorse possibly having a tick bite which he noticed on his way back from [place] a few days prior to his influenza vaccine. His anaplasma PCR came back positive. having hematuria today. Rangel is out. Exam Narrative Exam Narrative: General: Pleasant elderly male who is sitting up in a chair, A&Ox3, looks better, on RA. HEENT: EOMI, MMM Heart: irregularly irregular, + DEYANIRA Lungs: CTAB Abdomen: soft, nontender, nondistended Extremities: +1 edema BLEs Objective Last Vital Signs Temp 36.3 C L 05/30/23 07:27 Pulse 99 H 05/30/23 07:27 Resp 18 05/30/23 07:27 BP 148/69 H 05/30/23 07:27 Pulse Ox 92 05/30/23 07:27 Laboratory Results - last 24 hr 05/26/23 05/29/23 05/30/23 22:10 13:00 06:25 WBC 19.15 H RBC 3.30 L Hgb 10.8 L Hct 30.7 L MCV 93 MCH 32.7 MCHC 35.2 RDW 14.1 Plt Count 101 L MPV 12.3 H Immature Gran % 0.0 Neutrophils % 79.0 Band Neutrophils % 0 Lymphocytes % 16.0 Atypical Lymphs % 3 Monocytes % 0.0 Eosinophils % 0.0 Basophils % 0.0 Metamyelocytes % 1 Other Cells % 1 Nucleated RBC % 0.0 Absolute Neutrophils 15.13 H Absolute Lymphocytes 3.64 H Absolute Monocytes 0.00 L Absolute Eosinophils 0.00 Absolute Basophils 0.00 RBC Morphology Normal Sodium 133 L 135 L Potassium 3.1 L 3.7 Chloride 96 L 100 Carbon Dioxide 23.7 24.1 Anion Gap 13.3 H 10.9 BUN 98 H* 97 H* Creatinine 3.0 H 2.6 H Est GFR (CKD-EPI 2020) 20.36 24.17 Glucose 192 H 166 H Calcium 9.2 9.0 Magnesium 1.9 Total Bilirubin 0.9 Conjugated Bilirubin 0.4 H AST 188 H ALT 185 H Alkaline Phosphatase 105 Creatine Kinase 583 H C-Reactive Protein 5.26 H Total Protein 6.3 L Albumin 2.7 L Procalcitonin 0.8 FLOWER Titer 1:80 Speckled FLOWER Titer 2 Not Applicable FLOWER Titer 3 Not Applicable FLOWER Interpretation Positive A ANCA Immunofluorescen Negative ANCA Titer Not Applicable ANCA Pattern Not Applicable Lyme Disease Antibody Positive A Time Spent with Patient Time Spent with Patient: 35-49 minutes Time was spent: preparing to see the patient(eg.review tests), obtaining and/or reviewing separately otained hiistory, ordering medications,tests, procedures, referring, communicating with other health health care / medical job titles, indepentently interpreting results, counseling the patient and care coordination
--- NOTE | 2023-05-30 09:56 | PT.INNT ---
Date of service: 05/30/23 Time of Service: 09:56 PT Notes Visit Reasons: Severe Sepsis without Source Patient on hold per [facility] due to a cardiac event this morning.
[2023-05-30] MEDS: Metoprolol 50 MG TAB PO ×3 (10:53→21:19)
[2023-05-30 10:59] LABS: dsDNA Ab, IgG <12.3 IU/mL (<30.0)
[2023-05-30 11:17] LABS: Lyme IgG Ab Positive (Negative); Lyme IgM Ab Negative (Negative)
--- NOTE | 2023-05-30 12:12 | PDOC.CMPRO ---
Date of service: 05/30/23 Time of Service: 12:12 Care Management Progress Note Progress Note Text Progress Note Text: S/O:Rob was sitting up in a chair when CM met with him. He had a rapid response called this morning when his heart rate went into the 170s. He has afib and has not been on his beta stephen because of hypotension. The heart rate returned to normal with IV Lopressor. Rob asked CM for a glass of sudeep randi with ice. ANTWON asked about his diet and was told he is on a diabetic diet. This was discussed with Rob who informed ANTWON that he has never been told he has diabetes. Rob met with Lee from [employer] this afternoon to discuss his diet and glucose control. He has not been on a strict diet at home but has received insulin while hospitalized. he declined any additional education from Lee. A: Rob is an 82 year old man admitted on 05/26/23 with sepsis P:Rob has been moved out to the Med-Surg unit. He will likely be discharged home with no new services when medically cleared by the provider. He will follow up with his PCP and plan of care and transport with family. CM will follow and continue to assess for discharge planning needs.
[2023-05-30 12:23] LABS: B. miyamotoi PCR Negative (Negative); Babesia divergens/MO-1 Negative (Negative); Babesia duncani Negative (Negative); Babesia microti Negative (Negative); Ehrlichia chaffeensis Negative (Negative); Ehrlichia ewingii/canis Negative (Negative); Ehrlichia muris eauclairensis Negative (Negative)
[2023-05-30 12:31] LABS: Bilirubin Negative (Negative); Blood Large (Negative); Clarity Cloudy (Clear); Glucose Negative (Negative); Ketones Negative (Negative); Leukocyte Esterase Negative (Negative); Nitrite Negative (Negative); Specific Gravity 1.015 (1.005-1.025); Urobilinogen 0.2 mg/dL (Up to 0.2)
[2023-05-30 12:48] LABS: Bacteria Negative HPF (Negative); C & S Indicated? No; Casts Negative LPF (Negative); Crystals Negative HPF (Negative); Epithelial Cells Rare HPF (Negative); Mucus Trace (Negative); RBC >50 HPF (0-2); WBC 0-2 HPF (0-5)
--- NOTE | 2023-05-30 13:16 | W.DIABETESNO ---
Date of service: 05/30/23 Time of Service: 13:00 Diabetes Note Reason for Visit: routine consult : diabetes education NOTE: Pt is 82yo male with last A1C of 5.4% on 05/15/23. His BMI is currently consistent with stage III obesity. He is ordered for heart healthy and consistent carbohydrat diet with normal consistencies. His intake has been adequate, although he reports the food being a bit bland for him. His FBG was 166 this morning and he is managed with sensitive ss insulin aspart at meals and bedtime. He does not aggressively manage his diet at home but does stay aware of concentrated sweets. He reports no educational needs at this time. He did accept my card with contract info should he desire outpatient services after discharge. Intake has been fair to good and not aggressive nutrition intervention planned at this time. Will continue to monitor weight, labs and intake for changes. Time Spent in Nutritional Counseling and Treatment: 15 minutes
[2023-05-30 14:19] LABS: Anaplasma phagocytophilum Positive (Negative)
--- NOTE | 2023-05-30 16:03 | PT.INTREAT ---
Date of service: 05/30/23 Time of Service: 15:21 PT Notes Visit Reasons: Severe Sepsis without Source Inpatient Physical Therapy Treatment Note [facility] Date: 05/30/23 PRECAUTIONS: Fall, standard, activity as tolerated. SUBJECTIVE: Patient groans when this clinician enters the room, stating they just keep you going here, poke and prod and then go for a walk. Appears to be in good spirits. OBJECTIVE: Supine in bed, agreeable to therapy. ? PAIN: none reported. VITALS: closely monitored by nursing staff via telemetry. ? Therapeutic Activities ([id number]): Direct one-on-one instruction in dynamic activities to improve functional performance. ? BED MOBILITY/TRANSFERS? Rolling L/R: not assessed Supine-sit: modified independent with bilateral side rails. ? Sit-supine: not assessed ? Sit-stand: x3 CGA ? Stand-sit: x3 CGA ? Bed-Chair: x2 CGA ? Chair-bed: x2 CGA Provided skilled cues and instruction on performance and technique throughout. ? Therapeutic Exercises ([id number]): Direct one-on-one instruction in therapeutic exercises to develop strength, endurance, range of motion and flexibility. ? Exercises ? [] Ambulation ? Assistive Device: FWW? Weight bearing: full Assist: CGA, assist managing IV pole ? Distance:? 325 feet ? Deviation: reduced ramón, adequate heel strike, reduced toe off with pez planus, legs externally rotated, wide ANGELA.? Provided skilled instruction in proper exercise performance Provided skilled manual cues to facilitate proper muscle recruitment and/or form: [] ASSESSMENT:? Patient tolerates therapy well, no report of pain, dyspnea, or extreme fatigue, however reports being glad that this clinician did not make him do any stairs today as he just doesn't feel up to it. PLAN: Continue global strengthening per plan of care until patient is medically ready for discharge. TREATMENT CODE/TIME: 39 minutes beginning at 15:21
[2023-05-30] MEDS: DOXYCYCLINE 100 MG in Normal Saline 100 ML IVPB (16:18)
[2023-05-30] MEDS: Furosemide 20 MG/2 ML VIAL IVP (19:48)
[2023-05-31] VITALS (8 sets, daily range): BP systolic 121–160; BP diastolic 41–101; PULSE 84–100; RESP 16–20; TEMP 35.7–36.6; O2SAT 93–96
[2023-05-31] MEDS: DOXYCYCLINE 100 MG in Normal Saline 100 ML IVPB ×2 (03:55→17:05)
[2023-05-31] MEDS: Metoprolol 50 MG TAB PO ×4 (05:21→23:00)
[2023-05-31 07:05] LABS: HCT 32.3 % (40.0-50.0); MCHC 34.1 % (32.0-36.0); MCV 94 fL (80-95); MPV 11.9 fL (8.0-11.0); RBC 3.44 10^6/uL (4.36-5.78); RDW 14.1 % (11.8-14.1); RDW-SD 48.1 fL; WBC 19.96 10^3/uL (4.4-10.8)
[2023-05-31 07:23] LABS: ALT 229 U/L (16-63); AST 162 U/L (15-37); Albumin 2.9 g/dL (3.4-5.0); Alkaline Phosphatase 98 U/L (46-116); Anion Gap 8.8 mmol/L (3-11); Bilirubin, Direct 0.3 mg/dL (0.0-0.2); Bilirubin, Total 0.9 mg/dL (0.2-1.0); CO2 26.2 mmol/L (21.0-32.0); CREATININE 2.3 mg/dL (0.70-1.30); Chloride 104 mmol/L (98-107); Creatine Kinase 355 U/L (39-308); Glucose 121 mg/dL (74-106); Magnesium 1.8 mg/dL (1.8-2.4); Potassium 3.9 mmol/L (3.5-5.1); Sodium 139 mmol/L (136-145); Total Protein 6.5 g/dL (6.4-8.2)
[2023-05-31 07:24] LABS: BUN 90 mg/dL (7-18)
[2023-05-31 07:37] LABS: Absolute Neutrophil Count 11.78 10^3/uL (1.2-6.7); Platelet Count 145 10^3/uL (130-400)
[2023-05-31 07:38] LABS: Absolute Lymphocyte Count 5.79 10^3/uL (1.2-3.4); Atypical Lymphocytes % 3; Diff Comment Manual Differential
[2023-05-31 07:39] LABS: Poikilocytes 2+
[2023-05-31] MEDS: CEFEPIME 1 GM in Normal Saline 50 ML IVPB ×2 (08:35→20:08)
[2023-05-31] MEDS: Pantoprazole 40 MG TABCR PO (08:36)
[2023-05-31] MEDS: Aspirin E.C. 81 MG TABEC PO (08:36)
[2023-05-31] MEDS: Apixaban 2.5 MG TAB PO ×2 (08:36→20:08)
--- NOTE | 2023-05-31 09:04 | PDOC.CMPRO ---
Date of service: 05/31/23 Time of Service: 09:04 Care Management Progress Note Progress Note Text Progress Note Text: S/O:Rob was sitting up in bed when CM met with him. He stated that he continues to feel well. Yesterday He had an episode of tachycardia secondary to afib and he informed CM that this will continue to happen each morning. He believes it is related to the anaplasmosis he has been found to have. The provider did state that his cardiac symptoms may well be related to the infection. Rob informed CM that he has not been sleeping at night. He has not taken anything (nothing is ordered) in the hospital for sleep so CM asked if something could be available PRN.Rob stated that he did not work with PT today because he did not want to miss seeing the doctor. At the time of CM's visit, he had still not been seen. A: Rob is an 82 year old man admitted on 05/26/23 with sepsis P:Rob has been moved out to the Med-Surg unit. He will likely be discharged home with no new services when medically cleared by the provider. He will follow up with his PCP and plan of care and transport with family. CM will follow and continue to assess for discharge planning needs.
--- NOTE | 2023-05-31 11:01 | PT.INNT ---
PT Notes Visit Reasons: Severe Sepsis without Source Patient refuses therapy this morning. Agreeable to this clinician checking back in the afternoon. CM aware.
--- NOTE | 2023-05-31 16:15 | DI.RAD_ITS ---
Exam(s) XR CHEST 2V PA LATERAL EXAM: XR CHEST 2V PA LATERAL CLINICAL HISTORY: dyspnea. TECHNIQUE: 2D digital imaging was performed. COMPARISON: CR,XR XR PORTABLE CHEST AP from 05/28/2023 FINDINGS: 2 views: Heart size is normal. The mediastinum is not widened. Lungs are clear. No infiltrates nor pleural effusions. IMPRESSION: No acute pulmonary findings. DATA REPOSITORY: RADIATION DOSE DELIVERED:
--- NOTE | 2023-05-31 16:20 | PT.INTREAT ---
Date of service: 05/31/23 Time of Service: 16:20 PT Notes Visit Reasons: Severe Sepsis without Source Inpatient Physical Therapy Treatment Note [facility] Date: 05/31/23 PRECAUTIONS: Fall, standard, activity as tolerated SUBJECTIVE: Reports feeling better than this am. OBJECTIVE: Sidelying in bed, agreeable to therapy.? PAIN: yes, right hip into the groin. VITALS: monitored by nursing staff ? ? ? BED MOBILITY/TRANSFERS? Rolling L/R: independent Supine-sit: independent ? Sit-supine: independent ? Sit-stand: independent ? Stand-sit: independent ? Bed-Chair: independent ? Chair-bed: independent ? Therapeutic Exercises ([id number]): Direct one-on-one instruction in therapeutic exercises to develop strength, endurance, range of motion and flexibility. Ambulation ? Assistive Device: FWW? Weight bearing: full Assist: CGA, wheelchair follow ? Distance:? 625 feet ? Deviation: antalgic gait pattern, reduced stance phase right. C/o dizziness initially, but it clears in under a minute. ? Provided skilled instruction in proper exercise performance Provided skilled manual cues to facilitate proper muscle recruitment and/or form. ? ASSESSMENT:? Patient tolerates therapy well, reports no increase in pain from treatment session, no dyspnea PLAN: continue global strengthening per plan of care until patient is medically cleared for discharge. TREATMENT CODE/TIME: 30 minutes beginning at 13:44
--- NOTE | 2023-05-31 16:20 | W.PM.PROGNOT ---
Date of Service Date of service: 05/31/23 Time of Service: 16:20 Assessment and Plan Assessment and plan (1) Anaplasmosis: Status: Acute Assessment and plan: 82 yr old male w/ PMH of HTN and chronic afib controlled w/ Toprol XL and anticoagulated w/ Eliquis who was admitted 05/26/23 w/ symptoms of fevers of 101.4, tachycardia, encephalopathy, hypotension, and hypoxemia and was found to have acute transaminitis and RYLAND in setting of CKD, elevated troponins. He was initially evaluated w/ CXR, CT chest/abdomen/pelvis. No pulmonary infiltrates were seen and no acute pathology of the abdomen or pelvis was seen. Blood cultures from 05/26 and 05/27 as well as urine cultures from 05/27, 05/28 and 05/29 all showed no growth. 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 He initially was treated empirically for septic shock w/ norepinephrine, iv fluids and broad spectrum antibiotics including vancomycin and cefepime. 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 He continues to have high WBC of 19,000 however procalcitonin which was elevated at 3.1 on admission and ermelinda to as high as 3.5 has come down to 0.8, CRP was as high as 17.69 but has come down to 5.26. His hospital course has been complicated by myocarditis w/ troponin I that presented at 831 and peaked at 1161 before declining to 978 (it has not been repeated since 05/26/23). POCUS exam was done but was of poor quality images but on which a basis of cardiogenic shock was made. Subsequent formal echo on 05/29 demonstraated normal LV size, thickness and normal systolic function but was inadequate study to determine for regional wall motion abnormalities. Both atria are dilated, AV is calcified w/ moderate to severe aortic stenosis, moderate TR present. rhabdomyolysis w/ peak CK of 6528 that has been steadily declining and now is down to 355. His RYLAND w/ BUN 54 peaked at 101 and now is down to 90, while creatinine was 2.6 on admission (baseliine is 2.0) and peaked at 3.7. Transaminitis on presentation w/ AST 323>162 now, ALT 108 remains elevated at 229 Patient is clinically improving in his transaminitis and renal failure and rhabdomyolysis and has been hemodynamicallly stable. He is now on doxycyline 100 mg bid and will continue for minimum of 14 days although I will consult w/ I.D. at discharge for optimum length given his complications (2) Septic shock: Status: Resolved Assessment and plan: secondary to Anaplasmosis (3) Cardiogenic shock: Status: Suspected Assessment and plan: I have reviewed the POCUS images and I do not see evidence for cardiogenic shock on admission. I think his shock was purely sepsis. The images are suboptimal but grossly there does not appear to be LV or RV dysfunction. Follow up echo confirms normal LV and RV function. (4) Myocarditis: Status: Suspected Qualifiers: Myocarditis type: infective Infective myocarditis organism: other organism Chronicity: acute Qualified Code(s): I41 - Myocarditis in diseases classified elsewhere (5) Acute encephalopathy: Status: Resolved (6) Acute kidney injury superimposed on CKD: Status: Acute (7) Rhabdomyolysis: Status: Acute Qualifiers: Rhabdomyolysis type: non-traumatic Qualified Code(s): M62.82 - Rhabdomyolysis (8) Elevated LFTs: Status: Acute (9) Atrial fibrillation, chronic: Status: Chronic Assessment and plan: convert lopressor to Toprol XL, continue to monitor. (10) Anemia: Status: Chronic Qualifiers: Anemia type: iron deficiency Iron deficiency anemia type: chronic blood loss Qualified Code(s): D50.0 - Iron deficiency anemia secondary to blood loss (chronic) (11) Hematuria: Status: Acute Qualifiers: Hematuria type: gross Qualified Code(s): R31.0 - Gross hematuria (12) DVT prophylaxis: Status: Acute Assessment and plan: On renally dosed apixaban (13) Discharge planning issues: Status: Acute Assessment and plan: Full code PT consulted. Subjective Subjective Patient reports: no new complaints and feels better; denies shortness of breath Interval history since last seen: Patient is enquiring as to when he can go home. I told him possibly tomorrow. I explained to him that we feel that his cardiomyopathy was d/t a myocarditis brought on by his infection w/ Anaplasmosis. He is clinically improving. He is shock state included metabolic encephalopathy which has resolved as well as RYLAND and rhabdomyolysis which have resolved. He has chronic afib and with activity he does get up to 130 bpm but quickly comes back down. I will change his lopressor to Toprol XL tomorrow. Exam Narrative Exam Narrative: Rob is alert and oriented x 3, he ambulated for [employer] this afternoon without signficant dyspnea or CP but did get tachycardic but quickly returned to baseline upon resting Lungs: clear anteriorly but w/ some bibasilar Heart: irregularly irregular Abdomen: soft, nontender Legs: no edema Objective Last Vital Signs Temp 36.2 C L 05/31/23 15:12 Pulse 88 05/31/23 15:12 Resp 16 05/31/23 15:12 BP 133/80 05/31/23 15:12 Pulse Ox 95 05/31/23 15:12 Laboratory Results - last 24 hr 05/31/23 06:35 WBC 19.96 H RBC 3.44 L Hgb 11.0 L Hct 32.3 L MCV 94 MCH 32.0 MCHC 34.1 RDW 14.1 Plt Count 145 MPV 11.9 H Immature Gran % See Differential Neutrophils % 59.0 Lymphocytes % 26.0 Atypical Lymphs % 3 Monocytes % 8.0 Eosinophils % 3.0 Basophils % 2.0 Nucleated RBC % 1.0 H Absolute Neutrophils 11.78 H Absolute Lymphocytes 5.79 H Absolute Monocytes 1.60 H Absolute Eosinophils 0.60 Absolute Basophils 0.40 H RBC Morphology See Below Poikilocytosis 2+ Sodium 139 Potassium 3.9 Chloride 104 Carbon Dioxide 26.2 Anion Gap 8.8 BUN 90 H* Creatinine 2.3 H Est GFR (CKD-EPI 2020) 28.00 Glucose 121 H Calcium 9.0 Magnesium 1.8 Total Bilirubin 0.9 Conjugated Bilirubin 0.3 H AST 162 H ALT 229 H Alkaline Phosphatase 98 Creatine Kinase 355 H Total Protein 6.5 Albumin 2.9 L Time Spent with Patient Time Spent with Patient: 35-49 minutes Time was spent: preparing to see the patient(eg.review tests), ordering medications,tests, procedures, referring, communicating with other health skin care consultant, indepentently interpreting results, counseling the patient and care coordination
[2023-06-01] MEDS: Acetaminophen 325 MG TAB PO ×2 (01:22→12:02)
[2023-06-01] MEDS: Ibuprofen 600 MG TAB PO (03:19)
[2023-06-01 03:22] VITALS: BP 137/82; PULSE 87; RESP 20; TEMP 36.6; O2SAT 96
[2023-06-01] MEDS: Normal Saline Flush 10 ML SYR IVP ×2 (03:22→15:21)
[2023-06-01] MEDS: DOXYCYCLINE 100 MG in Normal Saline 100 ML IVPB ×2 (03:22→15:20)
[2023-06-01] MEDS: oxyCODONE 5 MG TAB PO (03:35)
[2023-06-01] MEDS: CEFEPIME 1 GM in Normal Saline 50 ML IVPB (08:00)
[2023-06-01 08:39] LABS: ALT 207 U/L (16-63); AST 111 U/L (15-37); Alkaline Phosphatase 96 U/L (46-116); Anion Gap 9.7 mmol/L (3-11); CO2 25.3 mmol/L (21.0-32.0); CREATININE 2.1 mg/dL (0.70-1.30); Chloride 104 mmol/L (98-107); Creatine Kinase 282 U/L (39-308); Estimated GFR 31.23 (mL/min/1.73m2); Glucose 119 mg/dL (74-106); Iron 32 ug/dL (65-175); LDH 451 U/L (85-227); NT-proBNP 24444 pg/mL (<300); Sodium 139 mmol/L (136-145); Total Iron Binding Capacity 199 ug/dL (250-450); Total Protein 6.6 g/dL (6.4-8.2); Transferrin Sat 16 % (20-55)
[2023-06-01 08:56] LABS: Procalcitonin 0.2 ng/mL
[2023-06-01 09:12] VITALS: BP 149/78; PULSE 88; RESP 18; TEMP 35.8; O2SAT 96
[2023-06-01 09:42] LABS: Ferritin 1773 ng/mL (26-388)
[2023-06-01 09:51] LABS: BUN 82 mg/dL (7-18)
[2023-06-01 09:53] LABS: Absolute Lymphocyte Count 6.64 10^3/uL (1.2-3.4); Absolute Neutrophil Count 9.78 10^3/uL (1.2-6.7); Atypical Lymphocytes % 12; Bands % 1; HCT 32.5 % (40.0-50.0); HGB 11.5 g/dL (13.5-17.5); MCH 33.5 pg (27.0-33.0); MCHC 35.4 % (32.0-36.0); MCV 95 fL (80-95); MPV 10.9 fL (8.0-11.0); Platelet Count 186 10^3/uL (130-400); RBC 3.43 10^6/uL (4.36-5.78); RDW 14.1 % (11.8-14.1); RDW-SD 49.3 fL; WBC 17.47 10^3/uL (4.4-10.8)
[2023-06-01 09:54] LABS: Absolute Monocyte Count 1.05 10^3/uL (0.1-0.8)
[2023-06-01 09:55] LABS: Troponin I 201 ng/L (<or=60)
[2023-06-01] MEDS: Apixaban 2.5 MG TAB PO ×2 (09:57→17:30)
[2023-06-01] MEDS: Aspirin E.C. 81 MG TABEC PO (09:58)
[2023-06-01] MEDS: Pantoprazole 40 MG TABCR PO (09:58)
[2023-06-01] MEDS: Metoprolol CR 100 MG TABCR PO ×2 (09:58→17:30)
[2023-06-01 10:00] LABS: Diff Comment Manual Differential
[2023-06-01 11:20] VITALS: BP 142/79; PULSE 91; RESP 18; TEMP 35.9; O2SAT 94
[2023-06-01] MEDS: Insulin Aspart 300 UNITS/3 ML PEN SC ×2 (12:02→17:30)
--- NOTE | 2023-06-01 13:02 | W.UROLOGYCON ---
Date of service: 06/01/23 Time of Service: 13:27 Assessment and Plan Assessment and plan (1) Hematuria: Status: Acute Assessment and plan: Typically, to complete this gentlemen's hematuria work-up, we would need a cystoscopy and retrograde pyelogram. Such a procedure would require a trip to the operating room and anesthetic. He would not be considered a good anesthesia risk for an elective procedure right now, so it is probably more reasonable to allow him to recover a bit (as long as he does not develop clots or clot retention). We can see him back in the office in a few weeks and obtain another urine sample. I would likely do a point of care ultrasound to you evaluate his urinary incontinence as well. If the hematuria is gone, we might be able to chalk it up to catheter trauma and avoid any additional invasive work-up. Based on his ultrasound, we could decide if he might benefit from a medication to empty his bladder more efficiently or to allow him to store his urine more efficiently. If the hematuria is still present at the time of his follow-up, we may want to consider a cystoscopy in the office. We run the risk of missing ureteral pathology, but the overall risk of ureteral pathology is quite low. The benefit would be that we would avoid systemic anesthesia in this gentleman. Qualifiers: Hematuria type: gross Qualified Code(s): R31.0 - Gross hematuria History of Present Illness History of Present Illness Chief Complaint: Hematuria Narrative: This is a 82-year-old gentleman who was admitted to the hospital with cardiogenic shock. 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 The patient has a history of incontinence prior to admission. He has never had an issue with urinary retention or gross hematuria. On admission, a Coates catheter was placed. He had gross hematuria at times and there is suspicion of some catheter trauma. The catheter has subsequently been removed. The patient is now back to his baseline of voiding. He has some incontinence but is able to void clear urine into the urinal at times. He has no prior history of kidney stones or urinary tract infections. He was not on any type of urologic medications prior to his admission. He does not recall any prior urologic surgery. Review of Systems Narrative: c/o insomnia and fatigue No vision change or dysphasia No diabetes or thyroid dysfunction No cough or hemoptysis No chest pain No nausea, vomiting, hepatitis, ulcers, jaundice, No seizures, strokes or peripheral neuropathy No bleeding disorders or anemia No gout PFSH All Active Problems (Updated 05/31/23 @ 18:49 by Jarrell Cifuentes MD) Anaplasmosis (Acute) Rhabdomyolysis (Acute) NSTEMI (non-ST elevated myocardial infarction) (Acute) Discharge planning issues (Acute) DVT prophylaxis (Acute) Qwtgi-ar-akhglmv kidney injury (Acute) Elevated LFTs (Acute) Myocarditis (Acute) Cardiogenic shock (Acute) Altered mental state (Acute) Hematuria (Acute) Elevated troponin (Acute) Elevated LFTs (Acute) Acute kidney injury superimposed on CKD (Acute) Hyponatremia (Acute) Anemia (Chronic) Severe sepsis (Acute) Heart failure (Acute) Multi-organ failure with heart failure (Acute) Acute lumbar back pain (Acute) De Quervain's tenosynovitis, right (Acute) Osteoarthritis of left knee (Acute) Left knee pain (Acute) Pre-diabetes (Acute) CKD (chronic kidney disease) (Chronic) Venous insufficiency (Acute) Dupuytrens contracture (Chronic ~2016) Hypertension (Chronic) BPH (benign prostatic hyperplasia) (Chronic) Atrial fibrillation, chronic (Chronic ~03/02/21) eliquis began 03/02/21, stress test and echo 03/22/[address] Maldonado Renal insufficiency (Chronic) Dyslipidemia (Chronic) low HL Abdominal obesity and metabolic syndrome (Acute) HTN (hypertension) with goal to be determined (Acute) Medical History Tubular adenoma on colonoscopy 01/02/13, repeat 09/07/18 WNL Hyperkalemia Due to SEBASTIAN inhibitor Normal colonoscopy (09/07/18) 09/07/18 Dr Kurt Ying, [facility], normal, would be repeat in 10 years but due to age, repeat as needed. 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 Walko 01/02/13, 09/07/18 wnl Family History Mother Personal history of malignant neoplasm Father Asthma Social History Smoking/Tobacco Use Status: Never Smoking risk assessment performed?: Yes Alcohol Intake: never Drug use: Never Substance use type: does not use Counseling provided: none (Non Applicable) Adopted: No Caregiver/Support person: No Foster care: No Household members: spouse Housing: house Number of Children: 2 number of grandchildren: 3 Communication Needs: None Education Level: master's degree Do you need help understanding health information?: Never current occupation: Retired Pets and animals: No Sexually active: No Do you think of yourself as: straight/heterosexual Current gender identity: male What is your relationship status?: How often do you talk on the phone with friends or family?: twice per week How often do you get together with friends or relatives?: once per week Do you belong to any clubs or organized social groups?: no Panel score (0-1 are the most socially isolated patients): 2 What type of physical activity do you participate in: walking and other Details: working Duration: > 90 minutes/day Frequency: 5-6 times per week Gail/Shinto: Spiritism Special gail needs: No Seatbelt use: sometimes Helmet use: No (Never) Drive intox 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 I do not palpate a distended bladder He has been refusing bladder scans He voided in my presence and clear urine was obtained He is awake and alert Const Other: I reviewed the CT of the chest abdomen and pelvis that was done at the time of the patient's admission. The study was done while a catheter was in his bladder. I see no evidence of hydronephrosis on the study. I reviewed his lab work. His serum creatinine was elevated on admission. Interestingly, the creatinine actually increased for a few days in spite of an indwelling catheter. The creatinine has gradually decreased over time and continues to decrease even now that the catheter is gone. His PTT was elevated was elevated early in his admission. Results Last Vital Signs Temp 35.9 C L 06/01/23 11:20 Pulse 91 H 06/01/23 11:20 Resp 18 06/01/23 11:20 BP 142/79 H 06/01/23 11:20 Pulse Ox 94 06/01/23 11:20 Labs 06/01/23 07:10 06/01/23 07:10 Labs: Laboratory Results - last 24 hr 06/01/23 07:10 WBC 17.47 H RBC 3.43 L Hgb 11.5 L Hct 32.5 L MCV 95 MCH 33.5 H MCHC 35.4 RDW 14.1 Plt Count 186 MPV 10.9 Immature Gran % 0.0 Neutrophils % 55.0 Band Neutrophils % 1 Lymphocytes % 26.0 Atypical Lymphs % 12 Monocytes % 6.0 Eosinophils % 0.0 Basophils % 0.0 Absolute Neutrophils 9.78 H Absolute Lymphocytes 6.64 H Absolute Monocytes 1.05 H Absolute Eosinophils 0.00 Absolute Basophils 0.00 Sodium 139 Potassium 4.0 Chloride 104 Carbon Dioxide 25.3 Anion Gap 9.7 BUN 82 H* Creatinine 2.1 H Est GFR (CKD-EPI 2020) 31.23 Glucose 119 H Calcium 9.0 Iron 32 L TIBC 199 L Transferrin % Sat 16 L Ferritin 1773 H Total Bilirubin 1.0 AST 111 H ALT 207 H Alkaline Phosphatase 96 Lactate Dehydrogenase 451 H Creatine Kinase 282 Troponin I 201 H* NT-Pro-B Natriuret Pep 56542 H Total Protein 6.6 Albumin 3.0 L Procalcitonin 0.2
[2023-06-01] MEDS: traMADol 50 MG TAB PO (15:19)
[2023-06-01 15:25] VITALS: BP 163/72; PULSE 92; RESP 19; TEMP 36; O2SAT 96
--- NOTE | 2023-06-01 17:04 | PT.INTREAT ---
Date of service: 06/01/23 Time of Service: 13:44 PT Notes Visit Reasons: Severe Sepsis without Source Inpatient Physical Therapy Treatment Note [facility] Date: 06/01/23 PRECAUTIONS: Fall, standard, activity as tolerated SUBJECTIVE: Patient reports excruciating pain in right hip/groin. Reports that he cannot walk. Reports RN is aware, waiting on pain medicine. Reports anxiety about not being able to sleep again tonight. RN aware. OBJECTIVE: Sidelying on left in bed, facing away from the door. Agreeable to try STM techniques to see if this clinician can offer some pain control. ? PAIN: 10 at rest, 05/02 with movement. VITALS: monitored by nursing staff. ? BED MOBILITY/TRANSFERS? Rolling L/R: not assessed Supine-sit: not assessed ? Sit-supine: not assessed ? Sit-stand: not assessed ? Stand-sit: not assessed ? Bed-Chair: not assessed ? Chair-bed: not assessed Manual Therapy ([id number]): the synergistic application of movement-oriented strategies integrating exercise and manually applied mobilization and manipulation procedures. Techniques: medium pressure deep tissue techniques, muscle stripping techniques, myofascial techniques, trigger point release applied to anterior and lateral thigh. Areas of tenderness noted in proximal quads, TFL, and around the greater trochanter including the tendinous insertion of the gluteal muscles. ASSESSMENT:? Patient tolerates therapy well, reports significant relief from pain. Unwilling to move in case it negates the relief. Patient appears more relaxed overall. PLAN: Continue global strengthening per plan of care until patient is medically cleared for discharge. TREATMENT CODE/TIME: 30 minutes beginning at 13:44
--- NOTE | 2023-06-01 17:13 | PDOC.CMDIS ---
Date of service: 06/01/23 Time of Service: 17:13 LACE Index Scoring Tool Questions: Length of Stay (in days): 4 - 6 Was the patient admitted via the E.D.?: Yes Comorbidities: Congestive Heart Failure and Liver or Renal Disease E.D. Visits: 1 Answers: Total Score: 13 Risk of Readmission: High Risk Care Management Discharge Plan Reason for Hospitalization: Sepsis w/o source Discharge Plan: Rob will be discharged home with new home health services for nursing and PT. He will follow up with his PCP and plan of care and transport with family. Patient/Family Education Needs: Review treatment plan, recommendations, discharge instructions, discuss Ask Me Three.
--- NOTE | 2023-06-01 17:19 | CHAPLAIN ---
Rob was resting in bed, his Katina was right next to him when I visited. He had a bad cough, but said that was secondary to other health issues. I explained my role and offered support. He was not interested in a longer visit at this point.
--- NOTE | 2023-06-01 17:27 | W.PM.DS.N ---
Date of service: 06/01/23 Time of Service: 17:27 DS: Diagnosis Discharge Diagnosis (1) Septic shock: Status: Resolved Asessment and Plan: Presentation as documented in admission H&P and ED evaluation and pulmonary/critical care consult. Also see hospital course/discharge plan as noted below. Patient presented in septic shock, w/ myocarditis, multiorgan system failure including RYLAND in setting of CKD and acute liver injury along w/ rhabdomyolysis and acute metabolic encephalopathy. His condition improved gradually w/ treatment of his hypotension w/ iv fluids, vasopressors, and antibiotics. Most notably he was eventually diagnosed as having Anaplasmosis and was started on doxycycline intravenously and transitioned to oral doxycycline. Although underlying CAD has not been ruled out or evaluated, his echocardiogram was reassuring for preservation of his LV and RV function and improvement of his CK and troponin I levels is also reassuring. He should continue w/ doxycycline treatment for at least 14 days. Repeat labs should be done in the next week to assess continued improvement in his renal and liver function. Further risk stratification for CAD can be obtained w/ outpatient stress MPI at the PCP discretion. (2) Anaplasmosis: Status: Acute (3) Myocarditis: Status: Acute (4) Multi-organ failure with heart failure: Status: Acute (5) Acute hypoxic respiratory failure: Status: Resolved (6) Rhabdomyolysis: Status: Acute (7) Dpttv-su-oxjoxiw kidney injury: Status: Acute (8) Hematuria: Status: Acute (9) Acute encephalopathy: Status: Resolved (10) Elevated LFTs: Status: Acute (11) Hypokalemia: Status: Resolved (12) Hyponatremia: Status: Acute (13) Anemia: Status: Chronic (14) Acute lumbar back pain: Status: Acute Discharge Plan Disposition Patient Disposition: Home W/Home Health Services Condition: Improving Discharge Details Reason For Visit: Severe Sepsis without Source Admit Date/Time: 05/26/23 10:52 Admit Provider: Arnaldo Mensah Attending Provider: Arnaldo Mensah Primary Care Provider: Joe Butt Hospital Course Hospital Course: 82 yr old male w/ PMH of HTN and chronic afib controlled w/ Toprol XL and anticoagulated w/ Eliquis who was admitted 05/26/23 w/ symptoms of fevers of 101.4, tachycardia, encephalopathy, hypotension, and hypoxemia and was found to have acute transaminitis and RYLAND in setting of CKD, elevated troponins. He was initially evaluated w/ CXR, CT chest/abdomen/pelvis. No pulmonary infiltrates were seen and no acute pathology of the abdomen or pelvis was seen. Blood cultures from 05/26 and 05/27 as well as urine cultures from 05/27, 05/28 and 05/29 all showed no growth. 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 He initially was treated empirically for septic shock w/ norepinephrine, iv fluids and broad spectrum antibiotics including vancomycin and cefepime. 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 He continues to have high WBC of 19,000 however procalcitonin which was elevated at 3.1 on admission and ermelinda to as high as 3.5 has come down to 0.8, CRP was as high as 17.69 but has come down to 5.26. His hospital course has been complicated by myocarditis w/ troponin I that presented at 831 and peaked at 1161 before declining to 978 (it has not been repeated since 05/26/23). POCUS exam was done but was of poor quality images but on which a basis of cardiogenic shock was made. Subsequent formal echo on 05/29 demonstraated normal LV size, thickness and normal systolic function but was inadequate study to determine for regional wall motion abnormalities. Both atria are dilated, AV is calcified w/ moderate to severe aortic stenosis, moderate TR present. rhabdomyolysis w/ peak CK of 6528 that has been steadily declining and now is down to 355. His RYLAND w/ BUN 54 peaked at 101 and now is down to 90, while creatinine was 2.6 on admission (baseliine is 2.0) and peaked at 3.7. Transaminitis on presentation w/ AST 323>162 now, ALT 108 remains elevated at 229 Patient is clinically improving in his transaminitis and renal failure and rhabdomyolysis and has been hemodynamicallly stable. He is now on doxycyline 100 mg bid and will continue for minimum of 14 days Home Meds and New Rx's Prescriptions: New tramadol 50 mg Tablet 50 mg PO Q12H PRN PRN10 Days Qty: 20 0RF Eliquis 2.5 mg Tablet 2.5 mg PO BID Qty: 60 0RF diclofenac sodium 3 % Gel 100 g topical Q4H WHILE AWAKE Qty: 100 0RF aspirin 81 mg Tablet,Delayed Release (Dr/Ec) 81 mg PO DAILY Qty: 30 0RF pantoprazole 40 mg Tablet,Delayed Release (Dr/Ec) 40 mg PO DAILY@0730 Qty: 30 0RF doxycycline hyclate 100 mg capsule 100 mg PO BID 14 Days Qty: 28 0RF Continued atorvastatin 20 mg tablet 20 mg PO DAILY Qty: 90 3RF hydrochlorothiazide 25 mg tablet 25 mg PO DAILY Qty: 90 3RF losartan 50 mg tablet 50 mg PO DAILY Qty: 90 3RF Changed metoprolol succinate 100 mg tablet extended release 24 hr 100 mg PO BID Qty: 90 3RF Discontinued Eliquis 5 mg tablet 5 mg PO BID Discharge Instructions Instructions: Lyme Disease (GEN), Acute Kidney Injury (DC), Tick Bite (GEN), Rhabdomyolysis (DC), Myocarditis (DC) Additional Instructions: You were admitted w/ severe infection, sepsis w/ multiple organ dysfunction including myocarditis, acute kidney injury, acute liver injury, rhabdomyolysis (skeletal muscle injury) all which was felt to be due to a tick borne disease, anaplasmosis. You have been started on appropriate antibiotic treatment w/ doxycycline 100 mg twice a day. You should take this for the next 14 days. You should also have follow up lab work to re-evaluate your kidney and liver function tests and your blood count. Please follow up w/ your PCP next week. Home health has been ordered for you including nursing, physical therapy and occupational therapy until you have sufficiently recovered your strength that you are able to perform all your own activities of daily living independently. Stand Alone Forms: Nursing Discharge Form Referrals: Joe Butt DO [Primary Care Provider] - (patient should have CMP, CBC, CK next week to follow up his renal, liver function and anemia) Activity:: Activity as Tolerated Equipment/Supplies:: No Equipment Needed Diet:: Normal Diet Discharge Orders Discharge Orders: Discharge Order (Routine); Ordered 06/01/23 Ordered By: Jarrell Cifuentes Discharge Data Discharge Date/Time-TO BE ENTERED AT DEPARTURE: 06/01/23 18:51 DS: Summary Time Spent with Patient providing and/or coordinating discharge services: Greater than 30 minutes Specific discharge activities: Interview/exam of patient; review of discharge instructions, completion of prescriptions/discharge instructions; discussion w/ nursing and CM; documentation of hospital visit Status at Discharge Functional status at discharge: uses cane/walker Overall status at discharge: patient is progressing back to baseline Mental Status: mental status grossly normal Speech and Movement: speech and movement normal Mood: congruent mood Affect: normal affect Exam Narrative Exam Narrative: Rob is alert and oriented x 3 Lungs: clear anteriorly but w/ some bibasilar posteriorly Heart: irregularly irregular but rate is controlled Abdomen: soft, nontender Legs: no edema Psych Mental Status: mental status grossly normal Speech and Movement: speech and movement normal Mood: congruent mood Affect: normal affect DS: Data Vitals/I&O Vitals and I&O: Vital Signs Temperature 36.0 C L 06/01/23 15:25 Temperature Source Tympanic 06/01/23 15:25 Pulse 92 H 06/01/23 15:25 Pulse Rhythm Irregular 06/01/23 08:10 Pulse 97 H 05/29/23 18:00 Respiratory Rate 19 06/01/23 15:25 Respiratory Effort Normal, Non-Labored 06/01/23 08:10 Respiratory Depth Normal 06/01/23 08:10 Respiratory Pattern Normal 06/01/23 08:10 Blood Pressure 163/72 H 06/01/23 15:25 Blood Pressure Mean 89 05/29/23 15:59 Blood Pressure Position Supine 05/29/23 07:25 Pulse Oximetry 96 06/01/23 15:25 Oxygen Delivery Method Room Air 06/01/23 15:25 Oxygen Flow Rate 0 06/01/23 15:25 Pain Level 2 06/01/23 15:25 Comment RN notified of vitals 06/01/23 15:25 Intake & Output 05/31/23 06/01/23 06/01/23 23:59 11:59 23:59 Intake Total 390 / 1490 690 / 690 Output Total 1275 / 2750 250 / 400 150 / 400 Balance -885 / -1260 440 / 290 -150 / 290 Intake: IV 150 / 310 150 / 150 Oral 240 / 1180 540 / 540 Output: Urine 1275 / 2750 250 / 400 150 / 400 Other: Urine Color Yellow Pale Yellow Urine Appearance Clear Clear Urine Odor None None Comment refused emptied urinal Voiding Methods Urinal Diaper Urinal Incontinent Data Completed and Pending Labs on day of discharge: Labs from last 24 hours 06/01/23 07:10 WBC 17.47 H RBC 3.43 L Hgb 11.5 L Hct 32.5 L MCV 95 MCH 33.5 H MCHC 35.4 RDW 14.1 Plt Count 186 MPV 10.9 Immature Gran % 0.0 Neutrophils % 55.0 Band Neutrophils % 1 Lymphocytes % 26.0 Atypical Lymphs % 12 Monocytes % 6.0 Eosinophils % 0.0 Basophils % 0.0 Absolute Neutrophils 9.78 H Absolute Lymphocytes 6.64 H Absolute Monocytes 1.05 H Absolute Eosinophils 0.00 Absolute Basophils 0.00 Sodium 139 Potassium 4.0 Chloride 104 Carbon Dioxide 25.3 Anion Gap 9.7 BUN 82 H* Creatinine 2.1 H Est GFR (CKD-EPI 2020) 31.23 Glucose 119 H Calcium 9.0 Iron 32 L TIBC 199 L Transferrin Pending Transferrin % Sat 16 L Ferritin 1773 H Total Bilirubin 1.0 AST 111 H ALT 207 H Alkaline Phosphatase 96 Lactate Dehydrogenase 451 H Creatine Kinase 282 Troponin I 201 H* NT-Pro-B Natriuret Pep 75034 H Total Protein 6.6 Albumin 3.0 L Procalcitonin 0.2 Preliminary micro results at discharge 05/27/23 18:35 Blood Culture - Preliminary Blood NO GROWTH 96 HOURS 05/27/23 18:35 Blood Culture - Preliminary Blood NO GROWTH 96 HOURS PFSH All Active Problems (Updated 06/01/23 @ 22:37 by Jarrell Cifuentes MD) Anaplasmosis (Acute) Rhabdomyolysis (Acute) NSTEMI (non-ST elevated myocardial infarction) (Acute) Discharge planning issues (Acute) DVT prophylaxis (Acute) Fasrd-ai-elkjbfy kidney injury (Acute) Elevated LFTs (Acute) Myocarditis (Acute) Altered mental state (Acute) Hematuria (Acute) Elevated troponin (Acute) Elevated LFTs (Acute) Acute kidney injury superimposed on CKD (Acute) Hyponatremia (Acute) Anemia (Chronic) Severe sepsis (Acute) Heart failure (Acute) Multi-organ failure with heart failure (Acute) Acute lumbar back pain (Acute) De Quervain's tenosynovitis, right (Acute) Osteoarthritis of left knee (Acute) Left knee pain (Acute) Pre-diabetes (Acute) CKD (chronic kidney disease) (Chronic) Venous insufficiency (Acute) Dupuytrens contracture (Chronic ~2017) Hypertension (Chronic) BPH (benign prostatic hyperplasia) (Chronic) Atrial fibrillation, chronic (Chronic ~03/02/21) eliquis began 03/02/21, stress test and echo 03/22/[address] Maldonado Renal insufficiency (Chronic) Dyslipidemia (Chronic) low HL Abdominal obesity and metabolic syndrome (Acute) HTN (hypertension) with goal to be determined (Acute) Medical History Tubular adenoma on colonoscopy 01/02/13, repeat 09/07/18 WNL Hyperkalemia Due to SEBASTIAN inhibitor Normal colonoscopy (09/07/18) 09/07/18 Dr Kurt Ying, [facility], normal, would be repeat in 10 years but due to age, repeat as needed. mg Obesity Dupuytren's disease Peripheral venous insufficiency Benign prostatic hyperplasia Essential hypertension DIVERTICULOSIS Surgical History History of total right knee replacement (TKR) (03/30/21) Colonoscopy - IV Sedation (~2006) MINDA 2006. Walko 01/02/13, 09/07/18 wnl Family History Mother Personal history of malignant neoplasm Father Asthma Social History Smoking/Tobacco Use Status: Never Smoking risk assessment performed?: Yes Alcohol Intake: never Drug use: Never Substance use type: does not use Counseling provided: none (Non Applicable) Adopted: No Caregiver/Support person: No Foster care: No Household members: spouse Housing: house Number of Children: 2 number of grandchildren: 3 Communication Needs: None Education Level: master's degree Do you need help understanding health information?: Never current occupation: Retired Pets and animals: No Sexually active: No Do you think of yourself as: straight/heterosexual Current gender identity: male What is your relationship status?: How often do you talk on the phone with friends or family?: twice per week How often do you get together with friends or relatives?: once per week Do you belong to any clubs or organized social groups?: no Panel score (0-1 are the most socially isolated patients): 2 What type of physical activity do you participate in: walking and other Details: working Duration: > 90 minutes/day Frequency: 5-6 times per week Gail/Mosque: Gnosticist Special gail needs: No Seatbelt use: sometimes Helmet use: No (Never) 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
--- NOTE | 2023-06-01 17:28 | PDOC.HHF2F ---
Home Health Referral Home Health Orders Clinical synopsis of why skilled professionals are needed: 82 yr old male w/ PMH of HTN and chronic afib controlled w/ Toprol XL and anticoagulated w/ Eliquis who was admitted 05/26/23 w/ symptoms of fevers of 101.4, tachycardia, encephalopathy, hypotension, and hypoxemia and was found to have acute transaminitis and RYLAND in setting of CKD, elevated troponins. He was initially evaluated w/ CXR, CT chest/abdomen/pelvis. No pulmonary infiltrates were seen and no acute pathology of the abdomen or pelvis was seen. Blood cultures from 05/26 and 05/27 as well as urine cultures from 05/27, 05/28 and 05/29 all showed no growth. 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 He initially was treated empirically for septic shock w/ norepinephrine, iv fluids and broad spectrum antibiotics including vancomycin and cefepime. 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 He continues to have high WBC of 19,000 however procalcitonin which was elevated at 3.1 on admission and ermelinda to as high as 3.5 has come down to 0.8, CRP was as high as 17.69 but has come down to 5.26. His hospital course has been complicated by myocarditis w/ troponin I that presented at 831 and peaked at 1161 before declining to 978 (it has not been repeated since 05/26/23). POCUS exam was done but was of poor quality images but on which a basis of cardiogenic shock was made. Subsequent formal echo on 05/29 demonstraated normal LV size, thickness and normal systolic function but was inadequate study to determine for regional wall motion abnormalities. Both atria are dilated, AV is calcified w/ moderate to severe aortic stenosis, moderate TR present. rhabdomyolysis w/ peak CK of 6528 that has been steadily declining and now is down to 355. His RYLAND w/ BUN 54 peaked at 101 and now is down to 90, while creatinine was 2.6 on admission (baseliine is 2.0) and peaked at 3.7. Transaminitis on presentation w/ AST 323>162 now, ALT 108 remains elevated at 229 Patient is clinically improving in his transaminitis and renal failure and rhabdomyolysis and has been hemodynamicallly stable. He is now on doxycyline 100 mg bid and will continue for minimum of 14 days although I will consult w/ I.D. at discharge for optimum length given his complications Patient needs home health nursing, P.T. and O.T. Nursing to monitor his medicaitons and his response to treatment of his anaplasmosis, draw and monitor labs and coordinate any change in treatment w/ his PCP. P.T. and O.T. to work w/ patient to improve his strength, gait, ambulation and ability to independently perform his ADL's. Medical diagnosis necessitation home health referral: Anaplasmosis, acute kidney injury, acute liver injury, anemia, myocarditis, rhabdomyolysis, atrial fibrilation requiring use of DOAC. Registered Nurse: Check all that apply Instruct on new or changed medication(s)/assess compliance: Ordered Physical Therapist: Check all that apply Increase strength & endurance for safe mobility at home: Ordered To design/establish home maintenance program: Ordered Home safety evaluation and teaching/gait training including stair management (if applicable): Ordered Occupational Therapist: Evaluate and treat for patient unable to perform ADL/IADL/self-care: Ordered Content Administrator: Assist with community resources: Ordered Home Bound Status Requires the aid of supportive device (check all that apply): Walker Describe why leaving home would require a considerable and taxing effort: Requires frequent rest periods and Safety Concerns: describe (general weakness, gait instability) Encounter Date and Reason: I certify that a FTF encounter for this patient was performed on June 01, 2023 and that such encounter was related to the primary reason the patient requires home health services. The encounter was conducted in the following manner: By me as the certifying physician, ACCOUNT SERVICES SPECIALIST, PA or By an inpatient physician, ACCOUNT SERVICES SPECIALIST or PA during an inpatient stay who communicated findings to me, Certification And Authentication I certify that I composed the above information based on my clinical judgment relating to this patient's medical condition and, if applicable, clinical findings communicated to me by the NPP or inpatient physician who performed the FTF encounter. Name of Provider that will be monitoring home health services: Joe Butt
[2023-06-02 10:16] LABS: Transferrin 159 mg/dL (201-352)
== END 2023-06-01 18:51 | disposition home health service (06) | DRG 871 ==
LOC: ER 10:46 → ICU 12:09 → MS 05-29 18:24
PROVIDERS: Family Medicine; Internal Medicine; Student in an Organized Health Care Education/Training Program; Admitting Provider Family Medicine; Emergency Provider Emergency Medicine; PCP Family Medicine; Visit Provider Family Medicine
DX: A41.89 Other specified sepsis (principal); G93.41 Metabolic encephalopathy; I40.9 Acute myocarditis, unspecified; J96.01 Acute respiratory failure with hypoxia; R65.21 Severe sepsis with septic shock; K72.00 Acute and subacute hepatic failure without coma; A79.82 Anaplasmosis [A. phagocytophilum]; I24.89 Other forms of acute ischemic heart disease; N17.9 Acute kidney failure, unspecified; I48.20 Chronic atrial fibrillation, unspecified; E87.1 Hypo-osmolality and hyponatremia; M62.82 Rhabdomyolysis; N18.2 Chronic kidney disease, stage 2 (mild); E87.6 Hypokalemia; Z79.01 Long term (current) use of anticoagulants; I12.9 Hypertensive chronic kidney disease with stage 1 through stage 4 chronic kidney disease, or unspecified chronic kidney disease; R31.0 Gross hematuria; D64.9 Anemia, unspecified; I50.9 Heart failure, unspecified; M54.50 Low back pain, unspecified; I87.2 Venous insufficiency (chronic) (peripheral); N40.0 Benign prostatic hyperplasia without lower urinary tract symptoms; E78.5 Hyperlipidemia, unspecified; E88.810 Metabolic syndrome; E66.9 Obesity, unspecified; Z68.38 Body mass index [BMI] 38.0-38.9, adult; Z96.651 Presence of right artificial knee joint; R74.01 Elevation of levels of liver transaminase levels; I35.0 Nonrheumatic aortic (valve) stenosis; W57.XXXA Bitten or stung by nonvenomous insect and other nonvenomous arthropods, initial encounter
CPT/HCPCS: 00123; 36410; 36415; 74177; 76604; 80048; 80053; 80076; 82550; 82805; 84145; 85027; 86255; 86617; 87040; 87632; 87637; 87641; 87798; 93005; 93306; 93308; 96365; 96366; 96367; 96368; 97110; 97116; 97140; 97162; 97530; 99221; 99222; 99291; 70450; 71045; 71046; 71260; 80202; 81003; 81015; 82140; 82565; 82728; 83540; 83550; 83605; 83615; 83735; 83880; 84443; 84466; 84484; 84540; 85014; 85018; 85025; 85730; 86038; 86140; 86225; 86618; 87086; 93010; 94667; 94668; 99233; 99239; J1941; J3490; J7060

== ENCOUNTER → 2023-05-29 07:32 | Outpatient (BNVA) | payer MEDICARE, SELFPAY | PROVIDERS: PCP Family Medicine; Referring Provider Family Medicine; Visit Provider Internal Medicine Cardiovascular Disease ==

== ENCOUNTER → 2023-05-31 08:07 | Outpatient (BNVA) | payer MEDICARE, SELFPAY | PROVIDERS: PCP Family Medicine; Referring Provider Family Medicine; Visit Provider Nurse Practitioner Gerontology ==

== ENCOUNTER 2023-06-08 18:34 | Outpatient (REF) | payer MEDICARE, SELFPAY ==
[2023-06-08 17:00] LABS: HCT 32.4 % (40.0-50.0); HGB 10.6 g/dL (13.5-17.5); MCH 32.2 pg (27.0-33.0); MCHC 32.7 % (32.0-36.0); MCV 99 fL (80-95); MPV 9.9 fL (8.0-11.0); Platelet Count 261 10^3/uL (130-400); RBC 3.29 10^6/uL (4.36-5.78); RDW 14.6 % (11.8-14.1); RDW-SD 52.2 fL; WBC 13.28 10^3/uL (4.4-10.8)
[2023-06-08 17:11] LABS: ALT 55 U/L (16-63); AST 28 U/L (15-37); Alkaline Phosphatase 99 U/L (46-116); Anion Gap 10.8 mmol/L (3-11); BUN 56 mg/dL (7-18); Bilirubin, Total 1.3 mg/dL (0.2-1.0); CO2 25.2 mmol/L (21.0-32.0); CREATININE 2.2 mg/dL (0.70-1.30); Calcium 9.1 mg/dL (8.5-10.1); Chloride 106 mmol/L (98-107); Creatine Kinase 51 U/L (39-308); Estimated GFR 29.54 (mL/min/1.73m2); Glucose 114 mg/dL (74-106); Sodium 142 mmol/L (136-145); Total Protein 6.3 g/dL (6.4-8.2)
== END 2023-06-08 18:35 | disposition home or self-care (01) ==
LOC: LBN 18:34
PROVIDERS: PCP Family Medicine; Visit Provider Family Medicine
DX: A79.82 Anaplasmosis [A. phagocytophilum] (principal); N17.9 Acute kidney failure, unspecified; D64.9 Anemia, unspecified; I12.9 Hypertensive chronic kidney disease with stage 1 through stage 4 chronic kidney disease, or unspecified chronic kidney disease
CPT/HCPCS: 80053; 82550; 85027

== ENCOUNTER 2023-07-07 16:50 | Outpatient (REF) | payer MEDICARE, SELFPAY ==
[2023-07-07 15:18] LABS: Anion Gap 5.7 mmol/L (3-11); BUN 39 mg/dL (7-18); CO2 26.3 mmol/L (21.0-32.0); CREATININE 2.1 mg/dL (0.70-1.30); Calcium 9.1 mg/dL (8.5-10.1); Chloride 107 mmol/L (98-107); Estimated GFR 31.23 (mL/min/1.73m2); Glucose 115 mg/dL (74-106); Potassium 4.5 mmol/L (3.5-5.1); Sodium 139 mmol/L (136-145)
== END 2023-07-07 16:51 | disposition home or self-care (01) ==
LOC: NCHCN 16:50
PROVIDERS: PCP Family Medicine; Visit Provider Family Medicine
DX: I13.0 Hypertensive heart and chronic kidney disease with heart failure and stage 1 through stage 4 chronic kidney disease, or unspecified chronic kidney disease (principal)
CPT/HCPCS: 80048

== ENCOUNTER → 2023-07-28 10:40 | Outpatient (BNVA) | payer MEDICARE, SELFPAY | PROVIDERS: PCP Family Medicine; Referring Provider Family Medicine; Visit Provider Internal Medicine Interventional Cardiology | DX: I50.31 Acute diastolic (congestive) heart failure (principal); I48.20 Chronic atrial fibrillation, unspecified; Z79.01 Long term (current) use of anticoagulants; I10 Essential (primary) hypertension | CPT/HCPCS: 99213 ==

== ENCOUNTER → 2023-08-10 10:35 | Outpatient (BNVA) | payer MEDICARE, SELFPAY | PROVIDERS: PCP Family Medicine; Referring Provider Family Medicine; Visit Provider Internal Medicine Interventional Cardiology | DX: I50.31 Acute diastolic (congestive) heart failure (principal); I10 Essential (primary) hypertension; I48.20 Chronic atrial fibrillation, unspecified | CPT/HCPCS: 99213 ==

== ENCOUNTER 2023-09-12 05:02 | Outpatient (CLI) | payer MEDICARE, SELFPAY ==
[2023-09-12 11:26] LABS: Abs Immature Grans 0.01 10^3/uL (0.0-0.06); Absolute Eosinophil Count 0.23 10^3/uL (0.0-0.7); Absolute Lymphocyte Count 3.12 10^3/uL (1.2-3.4); Absolute Neutrophil Count 3.89 10^3/uL (1.2-6.7); Basophils % 1.2; Eosinophils % 2.9; HCT 41.6 % (40.0-50.0); HGB 13.4 g/dL (13.5-17.5); Immature Grans % 0.1; Lymphocytes % 38.8; MCH 30.5 pg (27.0-33.0); MCHC 32.2 % (32.0-36.0); MCV 95 fL (80-95); MPV 10.3 fL (8.0-11.0); Monocytes % 8.7; Neutrophils % 48.3; Platelet Count 216 10^3/uL (130-400); RDW 13.5 % (11.8-14.1); RDW-SD 47.3 fL; WBC 8.05 10^3/uL (4.4-10.8)
[2023-09-12 12:14] LABS: ALT 20 U/L (16-63); AST 23 U/L (15-37); Albumin 4.1 g/dL (3.4-5.0); Alkaline Phosphatase 117 U/L (46-116); Anion Gap 7.6 mmol/L (3-11); BUN 57 mg/dL (7-18); Bilirubin, Total 0.9 mg/dL (0.2-1.0); CO2 31.4 mmol/L (21.0-32.0); CREATININE 3.1 mg/dL (0.70-1.30); Calcium 10.1 mg/dL (8.5-10.1); Chloride 103 mmol/L (98-107); Estimated GFR 19.57 (mL/min/1.73m2); Glucose 102 mg/dL (74-106); Potassium 4.3 mmol/L (3.5-5.1); Sodium 142 mmol/L (136-145); TSH (W/Ref FT4) 3.93 uIU/mL (0.36-3.74); Total Protein 8.6 g/dL (6.4-8.2)
[2023-09-12 12:30] LABS: FREE T4 1.03 ng/dL (0.76-1.46)
[2023-09-13 09:15] LABS: Prealbumin 19 mg/dL (20-40)
== END 2023-09-12 05:03 | disposition home or self-care (01) ==
LOC: LBO 05:03
PROVIDERS: PCP Family Medicine; Referring Provider Family Medicine; Visit Provider Family Medicine
DX: R63.4 Abnormal weight loss (principal); D64.9 Anemia, unspecified; I10 Essential (primary) hypertension; N18.9 Chronic kidney disease, unspecified; I50.32 Chronic diastolic (congestive) heart failure
CPT/HCPCS: 36415; 80053; 84134; 84439; 84443; 85025

== ENCOUNTER 2025-02-07 14:44 | Outpatient (CLI) | payer MEDICARE, SELFPAY ==
[2025-02-07 12:47] LABS: ALT 25 U/L (16-63); AST 27 U/L (15-37); Albumin 3.9 g/dL (3.4-5.0); Alkaline Phosphatase 120 U/L (46-116); Anion Gap 8.8 mmol/L (3-11); BUN 37 mg/dL (7-18); Bilirubin, Total 1.0 mg/dL (0.2-1.0); CO2 29.2 mmol/L (21.0-32.0); Calcium 9.4 mg/dL (8.5-10.1); Chloride 105 mmol/L (98-107); Estimated GFR 30.85 (mL/min/1.73m2); Glucose 100 mg/dL (74-106); Potassium 4.6 mmol/L (3.5-5.1); Sodium 143 mmol/L (136-145); Total Protein 7.7 g/dL (6.4-8.2)
== END 2025-02-07 14:45 | disposition home or self-care (01) ==
LOC: LBO 14:45
PROVIDERS: PCP Family Medicine; Visit Provider Family Medicine
DX: N18.9 Chronic kidney disease, unspecified (principal)
CPT/HCPCS: 36415; 80053